=== PATIENT | male | born 1980 | race American Indian/Alaskan Native ===

== ENCOUNTER 2017-01-21 02:24 | Emergency (ER) | payer SELFPAY ==
[2017-01-21 02:24] VITALS: BMI 25.8
[2017-01-21 02:38] VITALS: RESP 18
--- NOTE | 2017-01-21 03:45 | C.PDOC ---
History Of Present Illness <Anna Isabel - Last Filed: 01/21/17 05:53> <Harpal Joshi - Last Filed: 01/31/17 09:14> 36 y/o male c/o pain to right wrist after slip and falling onto it 2 days ago. pt c/o pain to anterior mid wrist, worse with flexion and extension. pt also looking for a place to sleep tonight, was drinking earlier. pt has no other complaints. (Anna Isabel) History Per: Patient History/Exam Limitations: no limitations Current Symptoms Are (Timing): Still Present Quality: Sharp <Anna Isabel - Last Filed: 01/21/17 05:53> <Harpal Joshi - Last Filed: 01/31/17 09:14> Time Seen by Provider: 01/21/17 03:11 Chief Complaint (Nursing): Finger,Hand,&Wrist Past Medical History Reviewed: Historical Data, Nursing Documentation, Vital Signs - Medical History PMH: Asthma, Depression, Diabetes, Gastritis, HTN, Pancreatitis Denies: Chronic Kidney Disease Surgical History: No Surg Hx Family History: States: Unknown Family Hx - Social History Hx Tobacco Use: Yes Hx Alcohol Use: Yes Hx Substance Use: No (DAILY) - Immunization History Hx Tetanus Toxoid Vaccination: Yes (07/05/2014) Hx Influenza Vaccination: No Hx Pneumococcal Vaccination: Yes <Anna Isabel - Last Filed: 01/21/17 05:53> Vital Signs: Last Vital Signs Temp 98.4 F 01/21/17 05:29 Pulse 81 01/21/17 05:29 Resp 18 01/21/17 05:29 BP 101/59 L 01/21/17 05:29 Pulse Ox 97 01/21/17 05:56 - [facility] Procedures ALCOHOL DETOXIFICATION (05/29/14) INJECT/INFUSE NEC (01/29/15) OTHER GROUP THERAPY (08/12/13) TETANUS TOXOID ADMINIST (07/05/14) Review Of Systems Constitutional: Negative for: Fever, Chills Cardiovascular: Negative for: Chest Pain, Palpitations Respiratory: Negative for: Cough, Shortness of Breath Gastrointestinal: Negative for: Nausea, Vomiting, Abdominal Pain Genitourinary: Negative for: Dysuria, Frequency Musculoskeletal: Positive for: Hand Pain Skin: Negative for: Rash Neurological: Negative for: Weakness, Numbness <Anna Isabel - Last Filed: 01/21/17 05:53> Physical Exam - Physical Exam Appears: Non-toxic, No Acute Distress, Unkempt Skin: Normal Color, Warm, Dry, Other (0.5 cm abrasion to anterior wrist right) Head: Atraumatic, Normacephalic Chest: Symmetrical, No Tenderness Extremity: Right: Bony Point Tenderness (wrist ulnar and medial aspect, able to flex and extend with discomfort. from at elbow and shoulder. ) Pulses: Left Radial: Normal, Right Radial: Normal Neurological/Psych: Oriented x3, Normal Motor, Normal Sensation <Anna Isabel - Last Filed: 01/21/17 05:53> ED Course And Treatment O2 Sat by Pulse Oximetry: 97 Pulse Ox Interpretation: Normal - Other Rad wrist X-Ray: Interpreted by Me, Viewed By Me Interpretation: no fx noted <Anna Isabel - Last Filed: 01/21/17 05:53> Medical Decision Making <Anna Isabel - Last Filed: 01/21/17 05:53> <Harpal Joshi - Last Filed: 01/31/17 09:14> Medical Decision Making: xray wrist bacitracin to abrasion tdap (Anna Isabel) ED OBSERVATION Discharge: Yes Date of observation admission: 01/21/17 Time of observation admission: 04:23 <Anna Isabel - Last Filed: 01/21/17 05:53> <Harpal Joshi - Last Filed: 01/31/17 09:14> - Observation admission statement Patient is being placed in observation because:: homelessness. alcohol abuse (Anna Isabel) - Goals of Observation Goals of observation are:: sobriety, safety (Anna Isabel) - Progress Note Progress Note: 01/21/17 05:54 pt comfortable, no distress, ambulates well (Anna Isabel) Disposition <Anna Isabel - Last Filed: 01/21/17 05:53> - Disposition Disposition Time: 07:00 <Harpal Joshi - Last Filed: 01/31/17 09:14> - Disposition Referrals: Non [facility] Provider, [Primary Care Provider] - Disposition: HOME/ ROUTINE Condition: GOOD - Clinical Impression Clinical Impression: Pain of upper extremity - PA / RESEARCH SCIENTIST / Resident Statement MD/DO has reviewed & agrees with the documentation as recorded. <Harpal Joshi - Last Filed: 01/31/17 09:14>
[2017-01-21 05:31] VITALS: BP 101/59; PULSE 81; TEMP 98.4
[2017-01-21 05:56] VITALS: O2SAT 97
--- NOTE | 2017-01-21 10:25 | RAD ---
PROCEDURE: Right Wrist Radiographs. HISTORY: pain s/p fall COMPARISON: None available. FINDINGS: BONES: No acute displaced fracture. JOINTS: No dislocation. SOFT TISSUES: Unremarkable. No evidence of radiopaque foreign body OTHER FINDINGS: None. IMPRESSION: No acute displaced fracture, dislocation, or significant joint effusion identified. If symptoms persist, or if there is continued clinical concern, x-ray follow-up in 7-10 days should be considered.
== END 2017-01-21 06:00 | disposition home or self-care (01) ==
LOC: SUPCPDRO 02:24 → C.ER 02:24
DX: M25.531 Pain in right wrist (principal)

== ENCOUNTER 2017-03-22 02:07 | Observation (INO) | payer SELFPAY ==
--- NOTE | 2017-03-22 02:19 | C.PDOC ---
History Of Present Illness Patient was brought to the ED by EMS after being found intoxicated. Patient has EtOH on breath and denies any complaints at this time. Time Seen by Provider: 03/22/17 02:18 History Per: Patient History/Exam Limitations: no limitations Onset/Duration Of Symptoms: Hrs Current Symptoms Are (Timing): Still Present Suicide/Self Injury Attempted (Context): None Severity: None Recent travel outside of the [place]: No Additional History Per: EMS Past Medical History Reviewed: Historical Data, Nursing Documentation, Vital Signs Vital Signs: Last Vital Signs Temp 97.7 F 03/22/17 02:20 Pulse 71 03/22/17 02:20 Resp 18 03/22/17 02:20 BP 128/87 03/22/17 02:20 Pulse Ox 97 03/22/17 02:20 - Medical History PMH: Asthma, Depression, Diabetes, Gastritis, HTN, Pancreatitis - [facility] Procedures ALCOHOL DETOXIFICATION (05/29/14) INJECT/INFUSE NEC (01/29/15) OTHER GROUP THERAPY (08/12/13) TETANUS TOXOID ADMINIST (07/05/14) Family History: States: Unknown Family Hx - Social History Hx Tobacco Use: Yes Hx Alcohol Use: Yes Hx Substance Use: No (DAILY) - Immunization History Hx Tetanus Toxoid Vaccination: Yes (07/05/2014) Hx Influenza Vaccination: No Hx Pneumococcal Vaccination: Yes Review Of Systems Constitutional: Negative for: Fever, Chills, Sweats Cardiovascular: Negative for: Chest Pain, Palpitations Respiratory: Negative for: Cough, Shortness of Breath Gastrointestinal: Negative for: Nausea, Vomiting, Abdominal Pain, Diarrhea Physical Exam - Physical Exam Appears: Non-toxic, No Acute Distress Skin: Warm, Dry Oral Mucosa: Moist Neck: Supple Cardiovascular: Rhythm Regular Respiratory: No Rales, No Rhonchi, No Stridor, No Wheezing Gastrointestinal/Abdominal: Soft, No Tenderness, No Distention, No Guarding, No Rebound Extremity: Normal ROM, No Tenderness Neurological/Psych: Oriented x3 ED Course And Treatment O2 Sat by Pulse Oximetry: 97 Pulse Ox Interpretation: Normal Reevaluation Time: 05:22 Reassessment Condition: Improved ED OBSERVATION Discharge: Yes Date of observation admission: 03/22/17 Time of observation admission: 02:15 - Observation admission statement Patient is being placed in observation because:: Intoxication. - Goals of Observation Goals of observation are:: sobriety. Disposition Counseled Patient/Family Regarding: Studies Performed, Diagnosis, Need For Followup - Disposition Disposition: HOME/ ROUTINE Disposition Time: 02:19 Condition: FAIR - Clinical Impression Clinical Impression: Alcohol abuse, Alcohol intoxication - Scribe Statement The provider has reviewed the documentation as recorded by the Ousmaneibe Liseth Muniz All medical record entries made by the Aris were at my direction and personally dictated by me. I have reviewed the chart and agree that the record accurately reflects my personal performance of the history, physical exam, medical decision making, and the department course for this patient. I have also personally directed, reviewed, and agree with the discharge instructions and disposition.
[2017-03-22 02:20] VITALS: BMI 23.6
[2017-03-22 02:23] VITALS: BP 128/87; PULSE 71; RESP 18; TEMP 97.7; O2SAT 97
== END 2017-03-22 05:23 | disposition home or self-care (01) ==
LOC: C.ER 02:07 → C.9OBSV 02:20
PROVIDERS: ADMIT Emergency Medicine; ATTEND Emergency Medicine
DX: F10.120 Alcohol abuse with intoxication, uncomplicated (principal); Y90.9 Presence of alcohol in blood, level not specified; I10 Essential (primary) hypertension; J45.909 Unspecified asthma, uncomplicated; Z87.891 Personal history of nicotine dependence; E11.9 Type 2 diabetes mellitus without complications

== ENCOUNTER 2017-05-18 02:35 | Emergency (ER) | payer MEDICAID, OTHER ==
[2017-05-18 02:35] VITALS: BMI 23.6
[2017-05-18 02:52] VITALS: O2SAT 95
--- NOTE | 2017-05-18 05:02 | C.PDOC ---
History Of Present Illness 37 y/o male presents to emergency department with complaint of right hand pain after it was caught in a car door. Patient well known to ER staff with hx of etoh abuse. Denies any new weakness, numbness, or other injury. Time Seen by Provider: 05/18/17 02:50 Chief Complaint (Nursing): Finger,Hand,&Wrist History Per: Patient History/Exam Limitations: no limitations Onset/Duration Of Symptoms: Days Current Symptoms Are (Timing): Still Present Recent travel outside of the [place]: No Past Medical History Reviewed: Historical Data, Nursing Documentation, Vital Signs Vital Signs: Last Vital Signs Temp 97.8 F 05/18/17 05:42 Pulse 68 05/18/17 05:42 Resp 18 05/18/17 05:42 BP 119/76 05/18/17 05:42 Pulse Ox 95 05/18/17 05:42 - Medical History PMH: Asthma, Depression, Diabetes, Gastritis, HTN, Pancreatitis - [facility] Procedures ALCOHOL DETOXIFICATION (05/29/14) INJECT/INFUSE NEC (01/29/15) OTHER GROUP THERAPY (08/12/13) TETANUS TOXOID ADMINIST (07/05/14) Family History: States: Unknown Family Hx - Social History Hx Tobacco Use: Yes Hx Alcohol Use: Yes Hx Substance Use: No (DAILY) - Immunization History Hx Tetanus Toxoid Vaccination: Yes (07/05/2014) Hx Influenza Vaccination: No Hx Pneumococcal Vaccination: Yes Review Of Systems Except As Marked, All Systems Reviewed And Found Negative. Constitutional: Negative for: Fever, Chills Respiratory: Negative for: Cough Gastrointestinal: Negative for: Nausea, Vomiting Musculoskeletal: Positive for: Hand Pain Skin: Negative for: Rash Neurological: Negative for: Weakness, Numbness Physical Exam - Physical Exam Appears: Non-toxic, No Acute Distress, Other (ETOH on breath, awake/alert) Skin: Normal Color, Warm, Dry Head: Atraumatic, Normacephalic Chest: Symmetrical Cardiovascular: Rhythm Regular, No Murmur Respiratory: Normal Breath Sounds, No Rales, No Rhonchi, No Wheezing Gastrointestinal/Abdominal: Soft, No Tenderness, No Guarding, No Rebound Extremity: Normal ROM, No Tenderness, Capillary Refill (< 2 sec.), No Deformity , Swelling (right hand) Extremity: Bilateral: Normal Color And Temperature Pulses: Left Radial: Normal, Right Radial: Normal Neurological/Psych: Oriented x3, Normal Speech, Normal Cognition, Normal Motor, Normal Sensation ED Course And Treatment O2 Sat by Pulse Oximetry: 95 (RA) Pulse Ox Interpretation: Normal - Other Rad Right Hand XR X-Ray: Interpreted by Me Interpretation: neg Progress Note: Right hand x-rays ordered/reviewed; negative for acute fx. Ian wrap applied. On reassessment, patient is resting comfortably, and is in no acute distress. Patient instructed to follow up with clinic/PMD within 1-2 days. Disposition - Disposition Disposition: HOME/ ROUTINE Disposition Time: 05:00 Condition: STABLE Additional Instructions: Follow up with PMD within 1-2 days. Return to ED if feel worse. Prescriptions: Ibuprofen [Motrin Tab] 400 mg PO Q8 #30 tab Famotidine [Pepcid] 20 mg PO BID #20 tab Instructions: Contusion in Adults (ED), Hand Sprain (ED) - Clinical Impression Clinical Impression: Hand contusion, Alcohol abuse - PA / PROCUREMENT SPECIALIST / Resident Statement MD/DO has reviewed & agrees with the documentation as recorded. - Scribe Statement The provider has reviewed the documentation as recorded by the Scribe Jacoby Almaraz All medical record entries made by the Aris were at my direction and personally dictated by me. I have reviewed the chart and agree that the record accurately reflects my personal performance of the history, physical exam, medical decision making, and the department course for this patient. I have also personally directed, reviewed, and agree with the discharge instructions and disposition.
[2017-05-18 05:46] VITALS: BP 119/76; PULSE 68; RESP 18; TEMP 97.8
--- NOTE | 2017-05-18 13:03 | RAD ---
PROCEDURE: Right Hand Radiographs. HISTORY: swelling/injury COMPARISON: Comparison made with radiographs of the right wrist 01/21/2017 FINDINGS: BONES: The current study reveals no definitive radiographic evidence of acute displaced fracture nor dislocation. The osseous structures appear intact. There appears to be mild dorsal soft tissue swelling most pronounced at the distal metacarpals. JOINTS: Joint spaces preserved. . There appears to be some minor degenerative changes along the radial margin of the second MCP joint OTHER FINDINGS: No evidence of radiopaque foreign bodies. IMPRESSION: No definitive evidence of acute displaced fracture nor dislocation. Mild dorsal soft tissue swelling as above. If symptoms persist or occult fracture suspected clinically recommend repeat radiographs in 5-10 days as most fractures should become radiographically evident in this timeframe. Alternatively, MRI could be performed.
== END 2017-05-18 05:30 | disposition home or self-care (01) ==
LOC: C.ER 02:35
DX: S60.221A Contusion of right hand, initial encounter (principal); W23.1XXA Caught, crushed, jammed, or pinched between stationary objects, initial encounter; Y92.410 Unspecified street and highway as the place of occurrence of the external cause; F10.10 Alcohol abuse, uncomplicated; Y90.9 Presence of alcohol in blood, level not specified

== ENCOUNTER 2017-05-22 22:16 | Observation (INO) | payer MEDICAID ==
[2017-05-22 22:16] VITALS: BMI 23.6
[2017-05-22 23:40] LABS: BASO # 0.1 K/uL (0.0-0.2); BASO % 3.1 % (0.0-2.0); EOS % 1.2 % (0.0-4.0); HEMOGLOBIN 12.4 g/dL (12.0-18.0); LYMPH # 1.8 K/uL (1.0-4.3); LYMPH % 55.9 % (20.0-40.0); MEAN CELL VOLUME 88.1 fL (80.0-94.0); MEAN CORPUSCULAR HEMOGLOBIN 28.5 pg (27.0-31.0); MEAN CORPUSCULAR HGB CONC 32.3 g/dL (33.0-37.0); MEAN PLATELET VOLUME 6.7 fL (7.2-11.7); MONO # 0.3 K/uL (0.0-0.8); MONO % 10.2 % (0.0-10.0); NEUT % 29.6 % (50.0-75.0); NRBC % 0.1 % (0.0-2.0); PLATELET COUNT 275 K/uL (130-400); RBC 4.33 Mil/uL (4.40-5.90); RED CELL DISTRIBUTION WIDTH 15.8 % (11.5-14.5); WHITE BLOOD COUNT 3.3 K/uL (4.8-10.8)
[2017-05-22 23:48] LABS: ALBUMIN 4.1 g/dL (3.5-5.0)
[2017-05-22 23:51] LABS: ALB/GLOB RATIO 1.2 (1.0-2.1); AST/SGOT 106 U/L (17-59); BLOOD UREA NITROGEN 9 mg/dL (9-20); GFR AFRICAN-AMERICAN > 60; GFR NON-AFRICAN AMERICAN > 60
[2017-05-22 23:52] LABS: ALT/SGPT 56 U/L (21-72); CALCIUM 7.9 mg/dl (8.6-10.4)
[2017-05-23 00:29] LABS: BASOPHIL 1 % (0-2); EOSINOPHIL 3 % (0-4); LYMPHOCYTE 65 % (20-40); MONOCYTE 3 % (0-10); NEUTROPHIL 24 % (50-75); PLATELET ESTIMATE NORMAL (NORMAL); REACTIVE LYMPHOCYTES 4 % (0-0); TOTAL CELLS COUNTED 100
--- NOTE | 2017-05-23 01:39 | C.PDOC ---
History Of Present Illness 37 year old male who presents to the ER via EMS for public intoxication. Denies any physical complaints at this time. Chief Complaint (Nursing): Substance Abuse History Per: Patient History/Exam Limitations: no limitations Onset/Duration Of Symptoms: Hrs Current Symptoms Are (Timing): Still Present Suicide/Self Injury Attempted (Context): None Modifying Factor(s): Alcohol Associated Symptoms: denies: Depression, Suicidal Thoughts, Suicidal Plan Involuntary Hold By: None Recent travel outside of the [place]: No Past Medical History Reviewed: Historical Data, Nursing Documentation, Vital Signs Vital Signs: Last Vital Signs Temp 97 F L 05/23/17 05:51 Pulse 71 05/23/17 05:51 Resp 14 05/23/17 05:51 BP 116/71 05/23/17 05:51 Pulse Ox 98 05/23/17 06:49 - Medical History PMH: Asthma, Depression, Diabetes, Gastritis, HTN, Pancreatitis Surgical History: No Surg Hx - [facility] Procedures ALCOHOL DETOXIFICATION (05/29/14) INJECT/INFUSE NEC (01/29/15) OTHER GROUP THERAPY (08/12/13) TETANUS TOXOID ADMINIST (07/05/14) Family History: States: Unknown Family Hx - Social History Hx Tobacco Use: Yes Hx Alcohol Use: Yes Hx Substance Use: No (DAILY) - Immunization History Hx Tetanus Toxoid Vaccination: Yes (07/05/2014) Hx Influenza Vaccination: No Hx Pneumococcal Vaccination: Yes Review Of Systems Constitutional: Negative for: Fever, Chills Gastrointestinal: Negative for: Nausea, Vomiting, Diarrhea Physical Exam - Physical Exam Appears: Non-toxic, No Acute Distress, Other (ETOH on breath) Skin: Normal Color, Warm, Dry Head: Atraumatic, Normacephalic Oral Mucosa: Moist Chest: Symmetrical, No Tenderness Cardiovascular: Rhythm Regular, No Murmur Respiratory: Normal Breath Sounds, No Rales, No Rhonchi, No Wheezing Gastrointestinal/Abdominal: Soft, No Tenderness Neurological/Psych: Oriented x3, Normal Speech, Normal Cognition ED Course And Treatment - Laboratory Results Result Diagrams: 05/22/17 23:38 05/22/17 23:38 O2 Sat by Pulse Oximetry: 98 (Room air) Pulse Ox Interpretation: Normal Progress Note: Urinalysis ordered. On reevaluation, patient is still unsteady, not ready for discharge. Disposition Counseled Patient/Family Regarding: Diagnosis - Disposition Disposition Time: 07:00 Condition: STABLE - POA Present On Arrival: None - Clinical Impression Clinical Impression: Alcohol intoxication - Scribe Statement The provider has reviewed the documentation as recorded by the Scribchidi Modi All medical record entries made by the Ousmaneibe were at my direction and personally dictated by me. I have reviewed the chart and agree that the record accurately reflects my personal performance of the history, physical exam, medical decision making, and the department course for this patient. I have also personally directed, reviewed, and agree with the discharge instructions and disposition.
[2017-05-23 05:52] VITALS: TEMP 97
[2017-05-23 07:19] VITALS: RESP 16; O2SAT 96
[2017-05-23 11:00] VITALS: BP 117/79; PULSE 76
== END 2017-05-23 11:33 | disposition home or self-care (01) ==
LOC: C.ER 22:16 → C.9OBSV 05-23 06:15
PROVIDERS: ADMIT Emergency Medicine; ATTEND Emergency Medicine
DX: F10.120 Alcohol abuse with intoxication, uncomplicated (principal); I10 Essential (primary) hypertension; J45.909 Unspecified asthma, uncomplicated; Z87.891 Personal history of nicotine dependence; E11.9 Type 2 diabetes mellitus without complications; Y90.8 Blood alcohol level of 240 mg/100 ml or more; Z79.4 Long term (current) use of insulin
CPT/HCPCS: 80053; 80320; 85025; 99285; G0378

== ENCOUNTER 2017-05-27 17:07 | Emergency (ER) | payer MEDICAID ==
[2017-05-27 17:14] VITALS: BMI 21.7
[2017-05-27 17:18] VITALS: BP 157/95; PULSE 92; RESP 18; TEMP 98.9; O2SAT 100
--- NOTE | 2017-05-27 17:30 | C.PDOC ---
History Of Present Illness 37-year-old male, brought in by EMS for fall on street. Patient has a Hx of multiple visits for alcohol abuse and seizures. States he did not have a seizure today, he tripped on a rock and fell. Denies LOC or head trauma. Patient states he needs to leave, and has money in his pockets that he "needs to deliver." No headache, neck pain, chest pain or shortness of breath. Time Seen by Provider: 05/27/17 17:19 Chief Complaint (Nursing): Seizure Past Medical History Vital Signs: Last Vital Signs Temp 98.9 F 05/27/17 17:10 Pulse 92 H 05/27/17 17:10 Resp 18 05/27/17 17:10 BP 157/95 H 05/27/17 17:10 Pulse Ox 100 05/27/17 17:34 - Medical History PMH: Asthma, Depression, Diabetes, Gastritis, HTN, Pancreatitis Denies: Chronic Kidney Disease - [facility] Procedures ALCOHOL DETOXIFICATION (05/29/14) INJECT/INFUSE NEC (01/29/15) OTHER GROUP THERAPY (08/12/13) TETANUS TOXOID ADMINIST (07/05/14) Family History: States: Unknown Family Hx - Social History Hx Tobacco Use: Yes Hx Alcohol Use: Yes Hx Substance Use: No - Immunization History Hx Tetanus Toxoid Vaccination: Yes (07/05/2014) Hx Influenza Vaccination: No Hx Pneumococcal Vaccination: No Review Of Systems Cardiovascular: Negative for: Chest Pain Respiratory: Negative for: Shortness of Breath Gastrointestinal: Negative for: Vomiting Neurological: Negative for: Weakness, Numbness, Headache, Dizziness Physical Exam - Physical Exam Appears: Non-toxic, No Acute Distress, Other (calm and cooperative. Tremulous) Skin: Warm, Dry Head: Atraumatic Eye(s): bilateral: Normal Inspection Nose: Normal Lips: Normal Appearing Neck: Normal ROM Cardiovascular: Rhythm Regular, No Murmur Respiratory: Normal Breath Sounds, No Accessory Muscle Use Gastrointestinal/Abdominal: Soft, No Tenderness Extremity: Other (subungal hematoma to right fifth digit w/ bleeding (does not want to be treated)) Neurological/Psych: Oriented x3 ED Course And Treatment O2 Sat by Pulse Oximetry: 100 Disposition Counseled Patient/Family Regarding: Diagnosis, Need For Followup - Disposition Disposition: HOME/ ROUTINE Disposition Time: 17:30 Condition: STABLE Instructions: Abuse of Alcohol (ED) Forms: General Discharge Instructions - POA Present On Arrival: None - Clinical Impression Clinical Impression: Seizure, Alcohol abuse - Scribe Statement The provider has reviewed the documentation as recorded by the Scribe (Jose F Yen) All medical record entries made by the Scribe were at my direction and personally dictated by me. I have reviewed the chart and agree that the record accurately reflects my personal performance of the history, physical exam, medical decision making, and the department course for this patient. I have also personally directed, reviewed, and agree with the discharge instructions and disposition.
== END 2017-05-27 17:46 | disposition home or self-care (01) ==
LOC: C.ER 17:07
DX: G40.909 Epilepsy, unspecified, not intractable, without status epilepticus (principal); F10.10 Alcohol abuse, uncomplicated; Y90.9 Presence of alcohol in blood, level not specified

== ENCOUNTER 2017-06-10 22:46 | Emergency (ER) | payer MEDICAID, OTHER ==
[2017-06-10 22:46] VITALS: BMI 21.7
[2017-06-10 23:14] VITALS: RESP 20
--- NOTE | 2017-06-11 00:54 | C.PDOC ---
History Of Present Illness 37 year old male who presents to the ER with acute ETOH intoxication. Denies physical complaints at this time. Chief Complaint (Nursing): Substance Abuse History Per: Patient History/Exam Limitations: no limitations Onset/Duration Of Symptoms: Hrs Current Symptoms Are (Timing): Still Present Suicide/Self Injury Attempted (Context): None Modifying Factor(s): Alcohol Associated Symptoms: denies: Depression, Suicidal Thoughts, Suicidal Plan Involuntary Hold By: None Recent travel outside of the [place]: No Past Medical History Reviewed: Historical Data, Nursing Documentation, Vital Signs Vital Signs: Last Vital Signs Temp 98 F 06/11/17 05:22 Pulse 64 06/11/17 05:22 Resp 20 06/11/17 05:22 BP 115/70 06/11/17 05:22 Pulse Ox 97 06/11/17 05:22 - Medical History PMH: Asthma, Depression, Diabetes, Gastritis, HTN, Pancreatitis Surgical History: No Surg Hx - [facility] Procedures ALCOHOL DETOXIFICATION (05/29/14) INJECT/INFUSE NEC (01/29/15) OTHER GROUP THERAPY (08/12/13) TETANUS TOXOID ADMINIST (07/05/14) Family History: States: Unknown Family Hx - Social History Hx Tobacco Use: Yes Hx Alcohol Use: Yes Hx Substance Use: No - Immunization History Hx Tetanus Toxoid Vaccination: Yes (07/05/2014) Hx Influenza Vaccination: No Hx Pneumococcal Vaccination: No Review Of Systems Constitutional: Negative for: Fever, Chills Gastrointestinal: Negative for: Nausea, Vomiting, Diarrhea Physical Exam - Physical Exam Appears: Non-toxic, No Acute Distress, Other (ETOH on breath) Skin: Normal Color, Warm, Dry Head: Atraumatic, Normacephalic Oral Mucosa: Moist Chest: Symmetrical, No Tenderness Cardiovascular: Rhythm Regular, No Murmur Respiratory: Normal Breath Sounds, No Rales, No Rhonchi, No Wheezing Gastrointestinal/Abdominal: Soft, No Tenderness Neurological/Psych: Oriented x3, Normal Speech, Normal Cognition ED Course And Treatment O2 Sat by Pulse Oximetry: 95 (Room air) Pulse Ox Interpretation: Normal ED OBSERVATION Date of observation admission: 06/10/17 Time of observation admission: 23:50 - Observation admission statement Patient is being placed in observation because:: Acute ETOH intoxication - Goals of Observation Goals of observation are:: Sobriety Disposition Counseled Patient/Family Regarding: Diagnosis - Disposition Referrals: [facility] [Outside] Disposition: HOME/ ROUTINE Disposition Time: 05:10 Condition: STABLE Instructions: Abuse of Alcohol (ED) Forms: [facility] (Guatemalan) - POA Present On Arrival: None - Clinical Impression Clinical Impression: Alcohol intoxication - Scribe Statement The provider has reviewed the documentation as recorded by the Scribe Farhan Modi All medical record entries made by the Scribe were at my direction and personally dictated by me. I have reviewed the chart and agree that the record accurately reflects my personal performance of the history, physical exam, medical decision making, and the department course for this patient. I have also personally directed, reviewed, and agree with the discharge instructions and disposition.
[2017-06-11 05:23] VITALS: BP 115/70; PULSE 64; TEMP 98
[2017-06-11 06:55] VITALS: O2SAT 95
== END 2017-06-11 05:23 | disposition home or self-care (01) ==
LOC: C.ER 22:46
DX: F10.120 Alcohol abuse with intoxication, uncomplicated (principal); Y90.9 Presence of alcohol in blood, level not specified

== ENCOUNTER 2017-06-13 03:36 | Emergency (ER) | payer OTHER ==
[2017-06-13 03:36] VITALS: BMI 21.7
--- NOTE | 2017-06-13 04:24 | C.PDOC ---
History Of Present Illness The patient presents to the ED for evaluation of abdominal pain which began earlier today. Patient admits to drinking earlier today and requests a place to sleep for the night. Patient is familiar to ED and has had many prior visits concerning alcohol intoxication. Otherwise, he denies suicidal/homicidal ideation, nausea, vomiting. Time Seen by Provider: 06/13/17 03:59 Chief Complaint (Nursing): Medical Clearance History Per: Patient History/Exam Limitations: intoxication Onset/Duration Of Symptoms: Hrs Current Symptoms Are (Timing): Still Present Additional History Per: Patient Past Medical History Reviewed: Historical Data, Nursing Documentation, Vital Signs Vital Signs: Last Vital Signs Temp 98 F 06/13/17 03:59 Pulse 84 06/13/17 03:59 Resp 20 06/13/17 03:59 BP 128/67 06/13/17 03:59 Pulse Ox 98 06/13/17 04:29 - Medical History PMH: Asthma, Depression, Diabetes, Gastritis, HTN, Pancreatitis Surgical History: No Surg Hx - [facility] Procedures ALCOHOL DETOXIFICATION (05/29/14) INJECT/INFUSE NEC (01/29/15) OTHER GROUP THERAPY (08/12/13) TETANUS TOXOID ADMINIST (07/05/14) Family History: States: Unknown Family Hx - Social History Hx Tobacco Use: Yes Hx Alcohol Use: Yes Hx Substance Use: No - Immunization History Hx Tetanus Toxoid Vaccination: Yes (07/05/2014) Hx Influenza Vaccination: No Hx Pneumococcal Vaccination: No Review Of Systems Constitutional: Positive for: Other (+ETOH intoxication ) Eyes: Negative for: Vision Change Cardiovascular: Negative for: Chest Pain, Palpitations Respiratory: Negative for: Cough, Shortness of Breath Gastrointestinal: Positive for: Abdominal Pain. Negative for: Nausea, Vomiting Musculoskeletal: Negative for: Back Pain Skin: Negative for: Rash, Lesions, Jaundice, Bruising Neurological: Negative for: Weakness, Numbness Psych: Negative for: Suicidal ideation Physical Exam - Physical Exam Appears: No Acute Distress, Other (visibly intoxicated ) Skin: Warm, Dry Head: Normacephalic Eye(s): bilateral: Normal Inspection Oral Mucosa: Moist, Other (alcohol on breath ) Neck: Supple Chest: Symmetrical, No Deformity, No Tenderness Cardiovascular: Rhythm Regular, No Murmur Respiratory: No Rales, No Rhonchi, No Wheezing Gastrointestinal/Abdominal: Tenderness (mild to mid-epigastric region on palpation ), No Guarding, No Rebound Extremity: Normal ROM, Capillary Refill (less than 2 seconds ) Neurological/Psych: Other (arousable to touch and verbal stimuli ) Gait: Unsteady ED Course And Treatment O2 Sat by Pulse Oximetry: 98 (on RA) Pulse Ox Interpretation: Normal Reevaluation Time: 05:47 Reassessment Condition: Improved Disposition Counseled Patient/Family Regarding: Studies Performed, Diagnosis, Need For Followup - Disposition Referrals: [facility] [Outside] Disposition: HOME/ ROUTINE Disposition Time: 05:47 Condition: FAIR Instructions: Alcohol Intoxication (DC) Forms: [employer] (Uzbek) - Clinical Impression Clinical Impression: Alcohol abuse, Alcohol intoxication - Scribe Statement The provider has reviewed the documentation as recorded by the Scribe (Rina Soler)
[2017-06-13 06:28] VITALS: BP 110/70; PULSE 70; RESP 14; TEMP 97.5; O2SAT 97
== END 2017-06-13 06:27 | disposition home or self-care (01) ==
LOC: C.ER 03:36
DX: F10.129 Alcohol abuse with intoxication, unspecified (principal); Y90.9 Presence of alcohol in blood, level not specified

== ENCOUNTER 2017-06-27 23:18 | Emergency (ER) | payer OTHER ==
[2017-06-27 23:18] VITALS: BMI 21.7
[2017-06-27 23:42] VITALS: RESP 20
--- NOTE | 2017-06-28 00:15 | C.PDOC ---
History Of Present Illness 37 year old male presents to the ED with complaints of "not feeling well." Patient admits to drinking alcohol today and states he feel either today or yesterday. He denies fever, diarrhea, vomiting, or any physical complaints at this time. Time Seen by Provider: 06/27/17 23:56 Chief Complaint (Nursing): Headache History Per: Patient History/Exam Limitations: no limitations Onset/Duration Of Symptoms: Unknown Current Symptoms Are (Timing): Still Present Preceeding Symptoms: None Recent travel outside of the [place]: No Additional History Per: Prior Records Past Medical History Reviewed: Historical Data, Nursing Documentation, Vital Signs Vital Signs: Last Vital Signs Temp 97.6 F 06/28/17 01:59 Pulse 83 06/28/17 01:59 Resp 20 06/28/17 01:59 BP 127/69 06/28/17 01:59 Pulse Ox 99 06/28/17 01:59 - Medical History PMH: Asthma, Depression, Diabetes, Gastritis, HTN, Pancreatitis Denies: Chronic Kidney Disease - [facility] Procedures ALCOHOL DETOXIFICATION (05/29/14) INJECT/INFUSE NEC (01/29/15) OTHER GROUP THERAPY (08/12/13) TETANUS TOXOID ADMINIST (07/05/14) Family History: States: Unknown Family Hx - Social History Hx Tobacco Use: Yes Hx Alcohol Use: Yes Hx Substance Use: No - Immunization History Hx Tetanus Toxoid Vaccination: Yes (07/05/2014) Hx Influenza Vaccination: No Hx Pneumococcal Vaccination: No Review Of Systems Constitutional: Positive for: Other (generalized complaints of not feeling well ). Negative for: Fever, Chills Cardiovascular: Negative for: Chest Pain, Palpitations Respiratory: Negative for: Cough, Shortness of Breath Gastrointestinal: Negative for: Nausea, Vomiting, Abdominal Pain, Diarrhea Physical Exam - Physical Exam Appears: Non-toxic, No Acute Distress, Other (Reading newspaper on exam ) Skin: Warm, Dry Head: Tenderness (tenderness to right occipital region of skull ) Eye(s): bilateral: Normal Inspection, PERRL, EOMI Oral Mucosa: Moist Neck: Supple Chest: Symmetrical, No Deformity Cardiovascular: Rhythm Regular Respiratory: Normal Breath Sounds, No Rhonchi, No Wheezing Gastrointestinal/Abdominal: Soft, No Tenderness, No Distention, No Guarding, No Rebound Extremity: Normal ROM, No Tenderness Neurological/Psych: Oriented x3, Normal Speech, Normal Cognition ED Course And Treatment O2 Sat by Pulse Oximetry: 98 (room air ) - CT Scan/US CT Head Without Intravenous Contrast Other Rad Studies (CT/US): Read By Radiologist, Radiology Report Reviewed CT/US Interpretation: FINDINGS: Brain: No acute intracranial hemorrhage. No significant white matter disease. No edema. Ventricles: No significant ventriculomegaly. Bones: No acute displaced fracture. Sinuses: Unremarkable as visualized. No acute sinusitis. Mastoid air cells: Unremarkable as visualized. No mastoid effusion. IMPRESSION: No acute intracranial hemorrhage , or suspicious mass effect. Progress Note: Head CT was ordered. Disposition - Disposition Referrals: [facility] [Outside] [facility] [Outside] Disposition: HOME/ ROUTINE Disposition Time: 01:05 Condition: GOOD Additional Instructions: Thank you for letting us take care of you today. Your provider was Dr. Dias. You were treated for alcohol abuse. The emergency medical care you received today was directed at your acute symptoms. If you were prescribed any medication, please fill it and take as directed. It may take several days for your symptoms to resolve. Return to the Emergency Department if your symptoms worsen, do not improve, or if you have any other problems. Please contact your doctor or call one of the physicians/clinics you have been referred to that are listed on the Patient Visit Information form that is included in your discharge packet. Bring any paperwork you were given at discharge with you along with any medications you are taking to your follow up visit. Our treatment cannot replace ongoing medical care by a primary care provider (PCP) outside of the emergency department. Thank you for allowing the [facility] team to be part of your care today. Follow up with the clinic for outpatient care. Instructions: Abuse of Alcohol (ED) Forms: [employer] (Czech) - Clinical Impression Clinical Impression: Headache, Alcohol abuse - Scribe Statement The provider has reviewed the documentation as recorded by the Scribe Liseth Muniz All medical record entries made by the Ousmaneibe were at my direction and personally dictated by me. I have reviewed the chart and agree that the record accurately reflects my personal performance of the history, physical exam, medical decision making, and the department course for this patient. I have also personally directed, reviewed, and agree with the discharge instructions and disposition.
--- NOTE | 2017-06-28 01:05 | CT ---
EXAM: CT Head Without Intravenous Contrast CLINICAL HISTORY: 37 years old, male; Injury or trauma; Fall; Initial encounter; Blunt trauma (contusions or hematomas); Additional info: R/O ich and FX TECHNIQUE: Axial computed tomography images of the head/brain without intravenous contrast. All CT scans at this facility use one or more dose reduction techniques, viz.: automated exposure control; ma/kV adjustment per patient size (including targeted exams where dose is matched to indication; i.e. head); or iterative reconstruction technique. Coronal and sagittal reformatted images were created and reviewed. COMPARISON: No relevant prior studies available. FINDINGS: Brain: No acute intracranial hemorrhage. No significant white matter disease. No edema. Ventricles: No significant ventriculomegaly. Bones: No acute displaced fracture. Sinuses: Unremarkable as visualized. No acute sinusitis. Mastoid air cells: Unremarkable as visualized. No mastoid effusion. IMPRESSION: No acute intracranial hemorrhage, or suspicious mass effect.
[2017-06-28 02:01] VITALS: BP 127/69; PULSE 83; TEMP 97.6
[2017-06-28 06:39] VITALS: O2SAT 98
== END 2017-06-28 02:13 | disposition home or self-care (01) ==
LOC: C.ER 23:18
DX: F10.10 Alcohol abuse, uncomplicated (principal); Y90.9 Presence of alcohol in blood, level not specified; R51 Headache

== ENCOUNTER 2017-08-03 22:39 | Emergency (ER) | payer OTHER ==
[2017-08-03 22:39] VITALS: BMI 21.7
[2017-08-03 22:54] VITALS: RESP 20
--- NOTE | 2017-08-03 22:57 | C.PDOC ---
History Of Present Illness Patient presents to the ER with a complaint of a laceration to the right frontal area after he fell [employer]. Patient admits to ETOH use today and remember the falls; denies LOC or change in vision. Time Seen by Provider: 08/03/17 22:56 Chief Complaint (Nursing): Substance Abuse History Per: Patient History/Exam Limitations: no limitations Onset/Duration Of Symptoms: Hrs Current Symptoms Are (Timing): Still Present Suicide/Self Injury Attempted (Context): None Modifying Factor(s): Alcohol Severity: Mild Pain Scale Rating Of: 2 Associated Symptoms: denies: Depression, Suicidal Thoughts, Suicidal Plan Involuntary Hold By: None Recent travel outside of the [place]: No Past Medical History Reviewed: Historical Data, Nursing Documentation, Vital Signs Vital Signs: Last Vital Signs Temp 97.8 F 08/04/17 03:07 Pulse 76 08/04/17 03:07 Resp 20 08/04/17 03:07 BP 124/78 08/04/17 03:07 Pulse Ox 99 08/04/17 03:23 - Medical History PMH: Asthma, Depression, Diabetes, Gastritis, HTN, Pancreatitis Surgical History: No Surg Hx - [facility] Procedures ALCOHOL DETOXIFICATION (05/29/14) INJECT/INFUSE NEC (01/29/15) OTHER GROUP THERAPY (08/12/13) TETANUS TOXOID ADMINIST (07/05/14) Family History: States: No Known Family Hx - Social History Hx Tobacco Use: Yes Hx Alcohol Use: Yes Hx Substance Use: No - Immunization History Hx Tetanus Toxoid Vaccination: Yes (07/05/2014) Hx Influenza Vaccination: No Hx Pneumococcal Vaccination: No Review Of Systems Eyes: Negative for: Vision Change Gastrointestinal: Negative for: Nausea, Vomiting Skin: Positive for: Other (Laceration) Neurological: Negative for: Other (LOC) Physical Exam - Physical Exam Appears: Non-toxic Skin: Warm, Dry Head: Normacephalic, Laceration (2cm to right frontal area) Eye(s): bilateral: Normal Inspection, PERRL, EOMI Oral Mucosa: Moist Neck: Trachea Midline, No Midline Cervical Tenderness, No Paracervical Tenderness, Supple Chest: Symmetrical Cardiovascular: Rhythm Regular Respiratory: No Rales, No Rhonchi, No Wheezing Gastrointestinal/Abdominal: Soft, No Tenderness Neurological/Psych: Oriented x3 ED Course And Treatment O2 Sat by Pulse Oximetry: 99 (Room air) Pulse Ox Interpretation: Normal Progress Note: CT head and CT orbits/facials ordered. Reevaluation Time: 05:26 Reassessment Condition: Improved ED OBSERVATION Discharge: Yes Date of observation admission: 08/04/17 Time of observation admission: 00:00 - Observation admission statement Patient is being placed in observation because:: alcohol intox - Goals of Observation Goals of observation are:: sobriety - Progress Note Progress Note: 08/04/17 00:02 vitals stable 08/04/17 03:22 no complaints 08/04/17 05:26 vitals stable Disposition Counseled Patient/Family Regarding: Studies Performed, Diagnosis, Need For Followup - Disposition Referrals: [facility] [Outside] Disposition: HOME/ ROUTINE Disposition Time: 22:56 Condition: FAIR Instructions: Alcohol Intoxication (DC), Abrasion (ED) Forms: [employer] (Gabonese) - Clinical Impression Clinical Impression: Alcohol intoxication, Alcohol dependence, Fall, Abrasion of forehead - Scribe Statement The provider has reviewed the documentation as recorded by the Scribchidi Modi All medical record entries made by the Ousmaneibchidi were at my direction and personally dictated by me. I have reviewed the chart and agree that the record accurately reflects my personal performance of the history, physical exam, medical decision making, and the department course for this patient. I have also personally directed, reviewed, and agree with the discharge instructions and disposition.
--- NOTE | 2017-08-04 01:18 | CT ---
EXAM: CT Head Without Intravenous Contrast EXAM DATE/TIME: 08/03/2017 11:16 PM CLINICAL HISTORY: 37 years old, male; Pain and injury or trauma; Fall; Initial encounter; Wound, open; Forehead; Without residual foreign body; Headache; Patient HX: 8-17 TECHNIQUE: Axial computed tomography images of the head/brain without intravenous contrast. All CT scans at this facility use one or more dose reduction techniques, viz.: automated exposure control; ma/kV adjustment per patient size (including targeted exams where dose is matched to indication; i.e. head); or iterative reconstruction technique. Coronal and sagittal reformatted images were created and reviewed. COMPARISON: CT - HEAD W/O CONTRAST 06/28/2017 12:49:09 AM FINDINGS: Brain: There is dilatation of sulci gyri and ventricles. There is no midline shift. There is decreased attenuation in periventricular white matter. There are no focal masses. There are no focal hemorrhages. Stewart-white differentiation is visualized. Ventricles: See above. Bones/joints: Bones: Cranial vault is intact. There are old nasal bone fractures Soft tissues: There is right frontal scalp hematoma. There are small radiopaque foreign bodies in the subcutaneous fat and skin, unchanged. Sinuses: There is no acute sinusitis. Mastoid air cells: Ears and mastoids: Middle ears and mastoids are unremarkable. Orbits: No orbital abnormalities. Position of the lenses suggest discordant gaze IMPRESSION: Mild atrophy greater than expected for patient of this age; right frontal scalp hematoma, no acute intracranial abnormality
--- NOTE | 2017-08-04 01:31 | CT ---
EXAM: CT Maxillofacial Without Intravenous Contrast EXAM DATE/TIME: 08/03/2017 11:16 PM CLINICAL HISTORY: 37 years old, male; Pain; Eye pain and face pain; Bilateral; Patient HX: 11-12-13; Additional info: Fall TECHNIQUE: Axial computed tomography images of the face without intravenous contrast. All CT scans at this facility use one or more dose reduction techniques, viz.: automated exposure control; ma/kV adjustment per patient size (including targeted exams where dose is matched to indication; i.e. head); or iterative reconstruction technique. Coronal and sagittal reformatted images were created and reviewed. COMPARISON: CT - ORBITS W/O CONTRAST 11/12/2013 6:06:58 AM FINDINGS: Bones/joints: There is deformity of the left zygomatic arch consistent with old healed fracture. There are no acute zygomatic arch fractures. There are old nasal bone fractures. There is deformity of the bony nasal septum, unchanged. There is an old healed left orbital floor fracture. Right bony orbit is unremarkable. There are no skull fractures. Soft tissues: There is right frontal scalp hematoma. There are no facial masses. Orbits: Globes are intact.Retrobulbar structures are symmetric. Submandibular/parotid glands: Parotid and submandibular glands are unremarkable. Sinuses: There is mucoperiosteal thickening in the sinuses, greatest in the left maxillary antrum. Middle ears and mastoids: Middle ears and mastoids are unremarkable. Dental: Streak artifact from dental fillings degrades image quality. There lucent lesion in the maxilla on the left. There are no upper teeth. Brain: No focal abnormalities are seen in visualized portion of the brain. IMPRESSION: Right frontal scalp hematoma, no underlying skull fracture; old healed left zygomatic arch fracture and old healed left orbital floor fracture, no acute facial bone fractures Additional findings as described above.
[2017-08-04] MEDS ORDERED: Lidocaine 1% w Epi 1:100,000 Inj ONE (06:18)
[2017-08-04] MEDS ORDERED: Bacitracin 500 Units/gm Oint Foilpak UD ONE (06:22)
[2017-08-04 06:45] VITALS: BP 117/70; PULSE 83; TEMP 98.1; O2SAT 98
[2017-08-04] MEDS ORDERED: Bacitracin Ointment 30 GM TUBE TOP STA (06:54)
== END 2017-08-04 07:00 | disposition home or self-care (01) ==
LOC: C.ER 22:39
DX: S01.81XA Laceration without foreign body of other part of head, initial encounter (principal); W18.30XA Fall on same level, unspecified, initial encounter; F10.229 Alcohol dependence with intoxication, unspecified; Y90.9 Presence of alcohol in blood, level not specified

== ENCOUNTER 2017-08-06 23:16 | Emergency (ER) | payer OTHER ==
[2017-08-06 23:16] VITALS: BMI 21.7
--- NOTE | 2017-08-07 01:35 | C.PDOC ---
History Of Present Illness 37 year old male who presents to the ER for a wound check after having sutures placed on his forehead on 08/03. Denies physical complaints at this time. Time Seen by Provider: 08/06/17 23:39 Chief Complaint (Nursing): Suture/Staple Removal History Per: Patient History/Exam Limitations: no limitations Onset/Duration Of Symptoms: Days Ago (2) Current Symptoms Are (Timing): Still Present Location Of Injury: Right: Head (Forehead) Quality Of Symptoms: Other (Wound) Recent travel outside of the [place]: No Past Medical History Reviewed: Historical Data, Nursing Documentation, Vital Signs Vital Signs: Last Vital Signs Temp 97.1 F L 08/07/17 05:21 Pulse 84 08/07/17 05:21 Resp 20 08/07/17 05:21 BP 133/67 08/07/17 05:21 Pulse Ox 98 08/07/17 05:21 - Medical History PMH: Asthma, Depression, Diabetes, Gastritis, HTN, Pancreatitis Surgical History: No Surg Hx - [facility] Procedures ALCOHOL DETOXIFICATION (05/29/14) INJECT/INFUSE NEC (01/29/15) OTHER GROUP THERAPY (08/12/13) TETANUS TOXOID ADMINIST (07/05/14) Family History: States: Unknown Family Hx - Social History Hx Tobacco Use: Yes Hx Alcohol Use: Yes Hx Substance Use: No - Immunization History Hx Tetanus Toxoid Vaccination: Yes (07/05/2014) Hx Influenza Vaccination: No Hx Pneumococcal Vaccination: No Review Of Systems Constitutional: Negative for: Fever, Chills Gastrointestinal: Negative for: Nausea, Vomiting, Diarrhea Skin: Positive for: Other (Healing wound) Physical Exam - Physical Exam Appears: Non-toxic, No Acute Distress, Other ((+) AOB, Sleepy but responsive, answers questions) Skin: Warm, Dry Head: Normacephalic, Other (Healing abrasions to right forehead, sutured laceration to RT forehead with [address], no bleeding or swelling.) Eye(s): bilateral: Normal Inspection Oral Mucosa: Moist Neck: Normal, Supple Chest: Symmetrical, No Tenderness Cardiovascular: Rhythm Regular Respiratory: Normal Breath Sounds, No Wheezing Extremity: Bilateral: Atraumatic Neurological/Psych: Oriented x3, Normal Speech, Normal Cognition Gait: Steady ED Course And Treatment O2 Sat by Pulse Oximetry: 99 (Room air) Pulse Ox Interpretation: Normal Progress Note: Pt appears inebriated, wants to sleep. Naun observe for sobriety test in AM. 5AM: Pt is awake, alert and oriented x 3 and ambulatory with steady gait. Pt will follow up in 5 d for suture removal Disposition - Disposition Referrals: [facility] [Outside] Disposition: HOME/ ROUTINE Disposition Time: 05:22 Condition: STABLE Additional Instructions: RETURN 0N / FOR SUTURE REMOVAL FOLLOW UP IN CLINIC RETURN TO ER AT ANY TIME FOR ANY CONCERNS Instructions: Care For Your Stitches (ED) Forms: [employer] (Thai), General Discharge Instructions - Clinical Impression Clinical Impression: Visit for wound check, Alcohol abuse - Scribe Statement The provider has reviewed the documentation as recorded by the Scribchidi Modi All medical record entries made by the Scribe were at my direction and personally dictated by me. I have reviewed the chart and agree that the record accurately reflects my personal performance of the history, physical exam, medical decision making, and the department course for this patient. I have also personally directed, reviewed, and agree with the discharge instructions and disposition.
[2017-08-07 03:26] VITALS: RESP 20
[2017-08-07 05:22] VITALS: BP 133/67; PULSE 84; TEMP 97.1
[2017-08-09 01:11] VITALS: O2SAT 99
== END 2017-08-07 05:33 | disposition home or self-care (01) ==
LOC: C.ER 23:16
DX: Z51.89 Encounter for other specified aftercare (principal); F10.10 Alcohol abuse, uncomplicated

== ENCOUNTER 2017-08-12 15:44 | Emergency (ER) | payer OTHER ==
[2017-08-12 15:44] VITALS: BMI 21.7
[2017-08-12 15:58] VITALS: BP 122/86; PULSE 67; RESP 16; TEMP 98.8; O2SAT 100
--- NOTE | 2017-08-12 16:18 | C.PDOC ---
History Of Present Illness 37 y/o M presents for suture removal. Patient had 3 sutures placed to R sided forehead 10 days ago. Denies fever, redness, discharge, swelling. Time Seen by Provider: 08/12/17 16:05 Chief Complaint (Nursing): Suture/Staple Removal Past Medical History Vital Signs: Last Vital Signs Temp 98.8 F 08/12/17 15:56 Pulse 67 08/12/17 15:56 Resp 16 08/12/17 15:56 BP 122/86 08/12/17 15:56 Pulse Ox 100 08/12/17 15:56 - Medical History PMH: Asthma, Depression, Diabetes, Gastritis, HTN, Pancreatitis Denies: Chronic Kidney Disease - [facility] Procedures ALCOHOL DETOXIFICATION (05/29/14) INJECT/INFUSE NEC (01/29/15) OTHER GROUP THERAPY (08/12/13) TETANUS TOXOID ADMINIST (07/05/14) Family History: States: Unknown Family Hx - Social History Hx Tobacco Use: Yes Hx Alcohol Use: Yes Hx Substance Use: No - Immunization History Hx Tetanus Toxoid Vaccination: Yes (07/05/2014) Hx Influenza Vaccination: No Hx Pneumococcal Vaccination: No Review Of Systems Except As Marked, All Systems Reviewed And Found Negative. Constitutional: Negative for: Fever Gastrointestinal: Negative for: Vomiting Physical Exam - Physical Exam Appears: Well, Non-toxic Skin: Other (Well healed laceration to R sided forehead with 3 sutures. Multiple R facial abrasions with overlying scabs without erythema or discharge.) Head: Normacephalic Eye(s): bilateral: EOMI Oral Mucosa: Moist Neurological/Psych: Normal Speech, Normal Cognition ED Course And Treatment O2 Sat by Pulse Oximetry: 100 Medical Decision Making Medical Decision Making: Sutures removed without complication. Disposition - Disposition Disposition: HOME/ ROUTINE Disposition Time: 16:18 Condition: STABLE Prescriptions: Bacitracin Ointment [Bacitracin] 1 appl TOP BID #1 tube Instructions: Stitches Removal (ED) - Clinical Impression Clinical Impression: Removal of suture
[2017-08-12] MEDS ORDERED: Bacitracin 500 Units/gm Oint Foilpak UD ONE (16:29)
== END 2017-08-12 16:36 | disposition home or self-care (01) ==
LOC: C.ER 15:44
DX: Z48.02 Encounter for removal of sutures (principal)

== ENCOUNTER 2017-08-15 04:18 | Emergency (ER) | payer OTHER ==
[2017-08-15 04:19] VITALS: BMI 21.7
[2017-08-15 04:39] VITALS: BP 126/86; PULSE 58; RESP 20; TEMP 97.6; O2SAT 99
--- NOTE | 2017-08-15 05:22 | C.PDOC ---
History Of Present Illness 36 y/o male patient presents to the ER with a wound check for stitches that were removed from a laceration 3 days ago. Patient denies any fever,discharge, or swelling on wound. Time Seen by Provider: 08/15/17 05:20 Chief Complaint (Nursing): Wound Check History Per: Patient History/Exam Limitations: no limitations Recent travel outside of the [place]: No Past Medical History Reviewed: Historical Data, Nursing Documentation, Vital Signs Vital Signs: Last Vital Signs Temp 97.6 F 08/15/17 04:35 Pulse 58 L 08/15/17 04:35 Resp 20 08/15/17 04:35 BP 126/86 08/15/17 04:35 Pulse Ox 99 08/15/17 06:21 - Medical History PMH: Asthma, Depression, Diabetes, Gastritis, HTN, Pancreatitis Surgical History: No Surg Hx - [facility] Procedures ALCOHOL DETOXIFICATION (05/29/14) INJECT/INFUSE NEC (01/29/15) OTHER GROUP THERAPY (08/12/13) TETANUS TOXOID ADMINIST (07/05/14) Family History: States: No Known Family Hx Denies: Unknown Family Hx - Social History Hx Tobacco Use: Yes Hx Alcohol Use: Yes Hx Substance Use: No - Immunization History Hx Tetanus Toxoid Vaccination: Yes (07/05/2014) Hx Influenza Vaccination: No Hx Pneumococcal Vaccination: No Review Of Systems Constitutional: Negative for: Fever Eyes: Positive for: Other (no discharge or swelling) Gastrointestinal: Negative for: Nausea, Vomiting Physical Exam - Physical Exam Appears: Non-toxic Skin: Warm, Dry Head: Normacephalic Eye(s): bilateral: Normal Inspection, EOMI, right: Other (abrasion over right eye,no erythema or discharge) Oral Mucosa: Moist Chest: Symmetrical Cardiovascular: Rhythm Regular Respiratory: Normal Breath Sounds Gastrointestinal/Abdominal: Soft, No Tenderness Neurological/Psych: Oriented x3 ED Course And Treatment O2 Sat by Pulse Oximetry: 99 (room air) Pulse Ox Interpretation: Normal Progress Note: Meds-Bacitracin Reevaluation Time: 06:21 Reassessment Condition: Improved Disposition Counseled Patient/Family Regarding: Studies Performed, Diagnosis, Need For Followup - Disposition Referrals: [facility] [Outside] Disposition: HOME/ ROUTINE Disposition Time: 05:20 Condition: FAIR Instructions: Acute Wound Care (ED) Forms: [employer] (Kiswahili) - Clinical Impression Clinical Impression: Visit for wound check - Scribe Statement The provider has reviewed the documentation as recorded by the Aris Arora Provider Attestation: All medical record entries made by the Ousmaneibe were at my direction and personally dictated by me. I have reviewed the chart and agree that the record accurately reflects my personal performance of the history, physical exam, medical decision making, and the department course for this patient. I have also personally directed, reviewed, and agree with the discharge instructions and disposition.
[2017-08-15] MEDS ORDERED: Bacitracin 500 Units/gm Oint Foilpak UD TOP ONE (05:32)
[2017-08-15] MEDS ORDERED: Bacitracin 500 Units/gm Oint Foilpak UD ONE (05:39)
== END 2017-08-15 06:00 | disposition home or self-care (01) ==
LOC: C.ER 04:18
DX: Z48.00 Encounter for change or removal of nonsurgical wound dressing (principal)

== ENCOUNTER 2017-10-13 21:14 | Emergency (ER) | payer OTHER ==
[2017-10-13 21:14] VITALS: BMI 21.7
--- NOTE | 2017-10-13 22:31 | C.PDOC ---
History Of Present Illness Patient presents to the ER with acute ETOH intoxication. Denies physical complaints at this time. Time Seen by Provider: 10/13/17 21:56 Chief Complaint (Nursing): Substance Abuse History Per: Patient History/Exam Limitations: no limitations Onset/Duration Of Symptoms: Hrs Current Symptoms Are (Timing): Still Present Suicide/Self Injury Attempted (Context): None Modifying Factor(s): Alcohol Associated Symptoms: denies: Depression, Suicidal Thoughts, Suicidal Plan Involuntary Hold By: None Recent travel outside of the [place]: No Past Medical History Reviewed: Historical Data, Nursing Documentation, Vital Signs Vital Signs: Last Vital Signs Temp 98.6 F 10/14/17 05:30 Pulse 78 10/14/17 05:30 Resp 20 10/14/17 05:30 BP 100/69 10/14/17 05:30 Pulse Ox 98 10/14/17 05:30 - Medical History PMH: Asthma, Depression, Diabetes, Gastritis, HTN, Pancreatitis Surgical History: No Surg Hx - [facility] Procedures ALCOHOL DETOXIFICATION (05/29/14) INJECT/INFUSE NEC (01/29/15) OTHER GROUP THERAPY (08/12/13) TETANUS TOXOID ADMINIST (07/05/14) Family History: States: Unknown Family Hx - Social History Hx Tobacco Use: Yes Hx Alcohol Use: Yes Hx Substance Use: No - Immunization History Hx Tetanus Toxoid Vaccination: Yes (07/05/2014) Hx Influenza Vaccination: No Hx Pneumococcal Vaccination: No Review Of Systems Constitutional: Negative for: Fever, Chills Gastrointestinal: Negative for: Nausea, Vomiting, Abdominal Pain Physical Exam - Physical Exam Appears: Non-toxic, No Acute Distress, Other (ETOH on breath, no trauma noted) Skin: Normal Color, Warm, Dry Head: Atraumatic, Normacephalic Eye(s): bilateral: Normal Inspection Oral Mucosa: Moist Chest: Symmetrical, No Tenderness Cardiovascular: Rhythm Regular Respiratory: Normal Breath Sounds, No Rales, No Rhonchi, No Wheezing Gastrointestinal/Abdominal: Soft, No Tenderness Neurological/Psych: Oriented x3, Normal Speech ED Course And Treatment O2 Sat by Pulse Oximetry: 98 (room air) Pulse Ox Interpretation: Normal Disposition - Disposition Referrals: [facility] [Outside] [facility] [Outside] Disposition: HOME/ ROUTINE Disposition Time: 05:30 Condition: IMPROVED Additional Instructions: Thank you for letting us take care of you today. The emergency medical care you received today was directed at your acute symptoms. If you were prescribed any medication, please fill it and take as directed. It may take several days for your symptoms to resolve. Return to the Emergency Department if your symptoms worsen, do not improve, or if you have any other problems. Please contact your doctor or call one of the physicians/clinics you have been referred to that are listed on the Patient Visit Information form that is included in your discharge packet. Bring any paperwork you were given at discharge with you along with any medications you are taking to your follow up visit. Our treatment cannot replace ongoing medical care by a primary care provider (PCP) outside of the emergency department. Thank you for allowing the [facility] team to be part of your care today. Follow up in the clinic in 3-5 days for outpatient care and further management. Instructions: Alcohol Intoxication (ED) Forms: [employer] (Slovak) - Clinical Impression Clinical Impression: Alcohol intoxication - Scribe Statement The provider has reviewed the documentation as recorded by the Scribe Farhan Modi All medical record entries made by the Scribe were at my direction and personally dictated by me. I have reviewed the chart and agree that the record accurately reflects my personal performance of the history, physical exam, medical decision making, and the department course for this patient. I have also personally directed, reviewed, and agree with the discharge instructions and disposition.
[2017-10-14 05:31] VITALS: BP 100/69; PULSE 78; RESP 20; TEMP 98.6; O2SAT 98
== END 2017-10-14 05:31 | disposition home or self-care (01) ==
LOC: C.ER 21:14
DX: F10.129 Alcohol abuse with intoxication, unspecified (principal); Y90.9 Presence of alcohol in blood, level not specified

== ENCOUNTER 2017-11-22 00:09 | Emergency (ER) | payer OTHER ==
[2017-11-22 00:10] VITALS: BMI 21.7
[2017-11-22 00:41] VITALS: O2SAT 97
[2017-11-22 03:44] VITALS: BP 118/66; PULSE 96; RESP 18; TEMP 97.9
--- NOTE | 2017-11-22 04:12 | C.PDOC ---
History Of Present Illness Patient presents to the ER with acute ETOH intoxication, requesting a place to spend the night. Denies physical complaints at this time. Time Seen by Provider: 11/22/17 01:01 Chief Complaint (Nursing): Substance Abuse History Per: Patient History/Exam Limitations: no limitations Onset/Duration Of Symptoms: Hrs Current Symptoms Are (Timing): Still Present Suicide/Self Injury Attempted (Context): None Modifying Factor(s): Alcohol Severity: None Pain Scale Rating Of: 0 Associated Symptoms: denies: Depression, Suicidal Thoughts, Suicidal Plan Involuntary Hold By: None Recent travel outside of the [place]: No Past Medical History Reviewed: Historical Data, Nursing Documentation, Vital Signs Vital Signs: Last Vital Signs Temp 97.9 F 11/22/17 03:44 Pulse 96 H 11/22/17 03:44 Resp 18 11/22/17 03:44 BP 118/66 11/22/17 03:44 Pulse Ox 97 11/22/17 04:15 - Medical History PMH: Asthma, Depression, Diabetes, Gastritis, HTN, Pancreatitis - [facility] Procedures ALCOHOL DETOXIFICATION (05/29/14) INJECT/INFUSE NEC (01/29/15) OTHER GROUP THERAPY (08/12/13) TETANUS TOXOID ADMINIST (07/05/14) Family History: States: No Known Family Hx - Social History Hx Tobacco Use: Yes Hx Alcohol Use: Yes Hx Substance Use: No - Immunization History Hx Tetanus Toxoid Vaccination: Yes (07/05/2014) Hx Influenza Vaccination: No Hx Pneumococcal Vaccination: No Review Of Systems Constitutional: Negative for: Fever, Chills Gastrointestinal: Negative for: Nausea, Vomiting, Diarrhea Physical Exam - Physical Exam Appears: Non-toxic, Other (ETOH on breath. No signs of injury.) Skin: Warm, Dry Head: Normacephalic Oral Mucosa: Moist Chest: Symmetrical, No Tenderness Cardiovascular: Rhythm Regular Respiratory: No Rales, No Rhonchi, No Wheezing Gastrointestinal/Abdominal: Soft, No Tenderness Neurological/Psych: Oriented x3 ED Course And Treatment O2 Sat by Pulse Oximetry: 97 (Room air) Pulse Ox Interpretation: Normal Disposition Counseled Patient/Family Regarding: Studies Performed, Diagnosis - Disposition Referrals: [facility] [Outside] Disposition: HOME/ ROUTINE Disposition Time: 04:11 Condition: FAIR Instructions: Alcohol Intoxication (DC) Forms: [employer] (Slovenian) - Clinical Impression Clinical Impression: Alcohol intoxication - Scribe Statement The provider has reviewed the documentation as recorded by the Scribe Farhan Modi All medical record entries made by the Scribe were at my direction and personally dictated by me. I have reviewed the chart and agree that the record accurately reflects my personal performance of the history, physical exam, medical decision making, and the department course for this patient. I have also personally directed, reviewed, and agree with the discharge instructions and disposition.
== END 2017-11-22 04:19 | disposition home or self-care (01) ==
LOC: C.ER 00:09
DX: F10.129 Alcohol abuse with intoxication, unspecified (principal); Y90.9 Presence of alcohol in blood, level not specified

== ENCOUNTER → 2017-11-23 20:19 | Emergency (ER) | payer OTHER ==
[2017-11-23 20:19] VITALS: BMI 21.7
== END | disposition left against medical advice (07) ==
LOC: C.ER 20:19
DX: Z02.89 Encounter for other administrative examinations (principal); R10.9 Unspecified abdominal pain

== ENCOUNTER 2017-12-29 14:05 | Emergency (ER) | payer OTHER ==
[2017-12-29 14:05] VITALS: BMI 21.7
[2017-12-29 14:13] VITALS: RESP 18; TEMP 98.4; O2SAT 98
--- NOTE | 2017-12-29 16:38 | CT ---
PROCEDURE: CT HEAD WITHOUT CONTRAST. HISTORY: head injury COMPARISON: Noncontrast head CT performed 08/03/17 TECHNIQUE: Axial computed tomography images were obtained through the head/brain without intravenous contrast. Radiation dose: Total exam DLP = 841.51 mGy-cm. This CT exam was performed using one or more of the following dose reduction techniques: Automated exposure control, adjustment of the mA and/or kV according to patient size, and/or use of iterative reconstruction technique. FINDINGS: HEMORRHAGE: No intracranial hemorrhage. BRAIN: No mass effect or edema. Mild atrophy re-identified, greater than expected for patient of this age. The zuleta-white matter differentiation appears intact. VENTRICLES: No hydrocephalus. CALVARIUM: Unremarkable. PARANASAL SINUSES: Unremarkable as visualized. No significant inflammatory changes. MASTOID AIR CELLS: Unremarkable as visualized. No inflammatory changes. OTHER FINDINGS: Mild frontal scalp hematoma. IMPRESSION: Mild frontal scalp hematoma. Mild atrophy re-identified, greater than expected for patient of this age. No acute intracranial pathology identified.
--- NOTE | 2017-12-29 16:52 | CT ---
CT cervical spine without IV contrast Indication: Injury, rule out fracture Comparison: None available. Technique: Axial computed tomography images were obtained of the cervical spine without the use of intravenous contrast. Coronal and sagittal reformatted images were created and reviewed. This CT exam was performed using 1 or more of the following dose reduction techniques: Automated exposure control, adjustment of the MAA and/or kV according to patient size, and/or use of iterative reconstruction technique. Radiation dose: Total exam DLP = 1093.18 mGy-cm. Findings: There is no evidence of acute fracture or subluxation. There is preserved alignment, vertebral body height, intervertebral disc spaces. The prevertebral soft tissues and spinolaminar lines appear intact. The lateral masses are preserved. The dens tip is intact. There is proper alignment of the lateral masses of C1 with the C2 vertebral body. Included portions of the thyroid gland appear unremarkable. Included portions of lung apices appear clear. Impression: No evidence of acute fracture or subluxation.
--- NOTE | 2017-12-29 17:01 | C.PDOC ---
History Of Present Illness Patient reports that he was drinking several hours ago, had mechanical trip and fall injurying the head and neck. Fall happened 2 hours and had ? LOC. EMS called and the patient was placed in a C-collar. Denies nausea, vomiting, diarrhea, change in vision, seizures, focal deficits. - HPI Time Seen by Provider: 12/29/17 14:47 Chief Complaint (Nursing): Trauma History Per: Patient, EMS History/Exam Limitations: no limitations Injury Occurred (Timing): Hours Ago: Recent travel outside of the [place]: No Past Medical History Reviewed: Historical Data, Nursing Documentation, Vital Signs Vital Signs: Last Vital Signs Temp 98.4 F 12/29/17 14:09 Pulse 94 H 12/29/17 17:27 Resp 18 12/29/17 17:27 BP 132/75 12/29/17 17:27 Pulse Ox 98 12/29/17 17:56 - Medical History PMH: Asthma, Depression, Diabetes, Gastritis, HTN, Pancreatitis Denies: Chronic Kidney Disease - [facility] Procedures ALCOHOL DETOXIFICATION (05/29/14) INJECT/INFUSE NEC (01/29/15) OTHER GROUP THERAPY (08/12/13) TETANUS TOXOID ADMINIST (07/05/14) Family History: States: Unknown Family Hx - Social History Hx Tobacco Use: Yes Hx Alcohol Use: Yes Hx Substance Use: Yes - Immunization History Hx Tetanus Toxoid Vaccination: Yes (07/05/2014) Hx Influenza Vaccination: No Hx Pneumococcal Vaccination: No Review Of Systems Except As Marked, All Systems Reviewed And Found Negative. Physical Exam - Physical Exam Appears: Well, No Acute Distress Skin: Normal Color, Warm, Rash Head: Atraumatic, Normacephalic Eye(s): bilateral: Normal Inspection, PERRL, EOMI Oral Mucosa: Moist Throat: No Erythema, No Exudate Neck: Other (Patient in C-collar, (+) paralumbar tenderness) Chest: Symmetrical, No Tenderness Cardiovascular: Rhythm Regular, No Friction Rub, No Murmur Respiratory: Normal Breath Sounds, No Rales, No Rhonchi, No Wheezing Gastrointestinal/Abdominal: Soft, No Tenderness Back: Normal Inspection, No CVA Tenderness, No Vertebral Tenderness, No Paraspinal Tenderness Extremity: Normal ROM, No Swelling Neurological/Psych: Oriented x3, Normal Speech, Normal Cranial Nerves, Normal Motor Gait: Steady ED Course And Treatment O2 Sat by Pulse Oximetry: 98 (on RA) Pulse Ox Interpretation: Normal Medical Decision Making Medical Decision Making: On re-exam, the patient reports improvement of symptoms. Lungs are CTA, heart is RRR, abdomen is soft, non-tender and the patient is tolerating Po well. Patient is ambulatory in the ED with steady gait. Follow up with the medical doctor within 1-2 days. Return if worsened. Disposition - Disposition Referrals: [facility] [Outside] Disposition: HOME/ ROUTINE Disposition Time: 17:19 Condition: FAIR Additional Instructions: Follow up with the medical doctor within 1-2 days. Return if worsened. Instructions: Whiplash (DC), Minor Head Injury Forms: [employer] (Eritrean) - Clinical Impression Clinical Impression: Head injury, Cervical strain
[2017-12-29 17:28] VITALS: BP 132/75; PULSE 94
== END 2017-12-29 17:28 | disposition home or self-care (01) ==
LOC: C.ER 14:05
DX: S16.1XXA Strain of muscle, fascia and tendon at neck level, initial encounter (principal); S09.90XA Unspecified injury of head, initial encounter; W01.0XXA Fall on same level from slipping, tripping and stumbling without subsequent striking against object, initial encounter; I10 Essential (primary) hypertension; E11.9 Type 2 diabetes mellitus without complications

== ENCOUNTER 2018-01-10 22:06 | Emergency (ER) | payer OTHER ==
[2018-01-10 22:06] VITALS: BMI 21.7
--- NOTE | 2018-01-10 22:36 | C.PDOC ---
History Of Present Illness 37 yo male, hx of htn, presetns with cp, he "has had for a while". state recently admitted to another institution. no fevers, cough, n/v/d, sob. pt well known to er. drinking coffee in nad. Time Seen by Provider: 01/10/18 22:26 Chief Complaint (Nursing): Chest Pain Past Medical History Reviewed: Historical Data, Nursing Documentation, Vital Signs Vital Signs: Last Vital Signs Temp 98.7 F 01/10/18 22:17 Pulse 100 H 01/10/18 22:17 Resp 18 01/10/18 22:17 BP 117/84 01/10/18 22:17 Pulse Ox 100 01/10/18 22:39 - Medical History PMH: Asthma, Depression, Diabetes, Gastritis, HTN, Pancreatitis Denies: Chronic Kidney Disease - [facility] Procedures ALCOHOL DETOXIFICATION (05/29/14) INJECT/INFUSE NEC (01/29/15) OTHER GROUP THERAPY (08/12/13) TETANUS TOXOID ADMINIST (07/05/14) Family History: States: Unknown Family Hx - Social History Hx Tobacco Use: Yes Hx Alcohol Use: Yes Hx Substance Use: Yes - Immunization History Hx Tetanus Toxoid Vaccination: Yes (07/05/2014) Hx Influenza Vaccination: No Hx Pneumococcal Vaccination: No Review Of Systems Except As Marked, All Systems Reviewed And Found Negative. Cardiovascular: Positive for: Chest Pain Physical Exam - Physical Exam Appears: Well, No Acute Distress Skin: Normal Color, Warm, Dry Eye(s): bilateral: Normal Inspection, PERRL, EOMI Nose: Normal Throat: Normal Neck: Normal Cardiovascular: Rhythm Regular Respiratory: Normal Breath Sounds Gastrointestinal/Abdominal: Normal Exam Back: Normal Inspection Extremity: Normal ROM ED Course And Treatment - Laboratory Results Result Diagrams: 01/10/18 23:01 01/10/18 23:01 O2 Sat by Pulse Oximetry: 100 Medical Decision Making Medical Decision Making: ekg nsr [address] twave changes labs cxr pending pt reassessed in nad. cxr neg as read by me. trop neg x 1 for "chronic pain" Disposition - Disposition Referrals: [facility] [Outside] [facility] [Outside] Pieter Cannon MD [Staff Provider] - Non [facility] Provider, [Primary Care Provider] - Disposition: HOME/ ROUTINE Disposition Time: 01:00 Condition: STABLE Instructions: Chest Pain Forms: [facility] (Argentine) - Clinical Impression Clinical Impression: Chest pain
[2018-01-10 23:13] LABS: BASO # 0.1 K/uL (0.0-0.2); BASO % 1.1 % (0.0-2.0); EOS % 0.3 % (0.0-4.0); HEMOGLOBIN 12.5 g/dL (12.0-18.0); LYMPH # 2.6 K/uL (1.0-4.3); LYMPH % 57.8 % (20.0-40.0); MEAN CELL VOLUME 83.6 fL (80.0-94.0); MEAN CORPUSCULAR HEMOGLOBIN 28.2 pg (27.0-31.0); MEAN CORPUSCULAR HGB CONC 33.8 g/dL (33.0-37.0); MEAN PLATELET VOLUME 7.7 fL (7.2-11.7); MONO # 0.3 K/uL (0.0-0.8); MONO % 7.2 % (0.0-10.0); NEUT # 1.5 K/uL (1.8-7.0); NEUT % 33.6 % (50.0-75.0); NRBC % 0.1 % (0.0-2.0); RBC 4.44 Mil/uL (4.40-5.90); RED CELL DISTRIBUTION WIDTH 15.6 % (11.5-14.5); WHITE BLOOD COUNT 4.4 K/uL (4.8-10.8)
[2018-01-10 23:16] LABS: ALB/GLOB RATIO 1.3 (1.0-2.1); ALBUMIN 4.1 g/dL (3.5-5.0); ALT/SGPT 76 U/L (21-72); AST/SGOT 99 U/L (17-59); BLOOD UREA NITROGEN 6 mg/dL (9-20); CALCIUM 8.1 mg/dl (8.6-10.4); GFR AFRICAN-AMERICAN > 60; GFR NON-AFRICAN AMERICAN > 60
[2018-01-11] MEDS ORDERED: Potassium Chloride 20 mEq ER Tab PO STA (00:51)
[2018-01-11] MEDS ORDERED: Potassium Chloride 20 mEq ER Tab PO ONE (02:41)
[2018-01-11 04:39] VITALS: BP 117/61; PULSE 96; RESP 16; TEMP 98.6; O2SAT 98
--- NOTE | 2018-01-11 08:40 | RAD ---
Chest x-ray two views History: Chest pain. Comparison: None available. Findings: No focal infiltrate or effusion. Heart size within normal limits. Impression: No focal infiltrate or effusion.
--- NOTE | 2018-01-11 12:36 | CARD ---
APPROVED REPORT EKG Measurement Heart [id number] <Conclusion> Normal sinus rhythm Normal ECG
== END 2018-01-11 05:30 | disposition home or self-care (01) ==
LOC: SUPCPDRO 22:06 → C.ER 22:06
DX: R07.9 Chest pain, unspecified (principal); E11.9 Type 2 diabetes mellitus without complications; I10 Essential (primary) hypertension; Z72.0 Tobacco use

== ENCOUNTER 2018-01-17 22:23 | Emergency (ER) | payer OTHER ==
[2018-01-17 22:24] VITALS: BMI 21.7
[2018-01-18 04:24] VITALS: RESP 18
[2018-01-18 05:27] VITALS: BP 131/74; PULSE 75; TEMP 98.7; O2SAT 97
--- NOTE | 2018-01-18 05:36 | C.PDOC ---
History Of Present Illness Pt admits to drinking alcohol tonight. Time Seen by Provider: 01/17/18 23:38 Chief Complaint (Nursing): Substance Abuse History Per: Patient History/Exam Limitations: intoxication Onset/Duration Of Symptoms: Unknown (tonight) Current Symptoms Are (Timing): Still Present Suicide/Self Injury Attempted (Context): None Modifying Factor(s): Alcohol Severity: Moderate Associated Symptoms: denies: Suicidal Thoughts, Suicidal Plan Additional History Per: Prior Records Past Medical History Reviewed: Historical Data, Nursing Documentation, Vital Signs Vital Signs: Last Vital Signs Temp 98.7 F 01/18/18 05:27 Pulse 75 01/18/18 05:27 Resp 18 01/18/18 05:27 BP 131/74 01/18/18 05:27 Pulse Ox 97 01/18/18 05:27 - Medical History PMH: Asthma, Depression, Diabetes, Gastritis, HTN, Pancreatitis Other PMH: Alcohol abuse - [facility] Procedures ALCOHOL DETOXIFICATION (05/29/14) INJECT/INFUSE NEC (01/29/15) OTHER GROUP THERAPY (08/12/13) TETANUS TOXOID ADMINIST (07/05/14) Family History: States: Unknown Family Hx - Social History Hx Tobacco Use: Yes Hx Alcohol Use: Yes Hx Substance Use: No - Immunization History Hx Tetanus Toxoid Vaccination: Yes (07/05/2014) Hx Influenza Vaccination: No Hx Pneumococcal Vaccination: No Review Of Systems Review Of Systems: ROS cannot be obtained secondary to pt's inabilty to answer questions. Physical Exam - Physical Exam Appears: Non-toxic, No Acute Distress, Other (AOB, intoxicated) Skin: Normal Color, Warm, Dry Head: Atraumatic, Normacephalic Eye(s): bilateral: PERRL, EOMI Neck: Normal ROM, No Midline Cervical Tenderness, No Step Off Deformity, Supple Chest: Symmetrical, No Deformity Cardiovascular: Rhythm Regular Respiratory: Normal Breath Sounds, No Accessory Muscle Use Gastrointestinal/Abdominal: Soft Extremity: Normal ROM Neurological/Psych: Normal Motor, Normal Sensation, Slow To Respond With Command Gait: Unable To Assess ED Course And Treatment O2 Sat by Pulse Oximetry: 97 Pulse Ox Interpretation: Normal Progress Note: Pt in now clinically sober. AAOx3. Steady gait. Reassessment Condition: Improved Disposition Counseled Patient/Family Regarding: Diagnosis, Need For Followup - Disposition Disposition: HOME/ ROUTINE Disposition Time: 05:36 Condition: IMPROVED Additional Instructions: Avoid alcohol. Follow up with your doctor. Return to the ER if you develop worsening of symptoms or if you have any other concerns. Instructions: Alcohol Abuse and Alcoholism (DC) - Clinical Impression Clinical Impression: Alcohol abuse
== END 2018-01-18 05:57 | disposition home or self-care (01) ==
LOC: C.ER 22:23
DX: F10.10 Alcohol abuse, uncomplicated (principal); Y90.9 Presence of alcohol in blood, level not specified

== ENCOUNTER 2018-02-14 04:41 | Emergency (ER) | payer OTHER ==
[2018-02-14 04:46] VITALS: BMI 23.0
--- NOTE | 2018-02-14 05:28 | C.PDOC ---
History Of Present Illness 37 year old male with PMHx of chronic alcohlism presents to the ED c/o of feeling of balance. Patient admits to drinking alcohol today. Patient denies SI/ HI, hallucinations, CP, SOB, abdominal pain. Time Seen by Provider: 02/14/18 04:58 Chief Complaint (Nursing): Substance Abuse History Per: Patient History/Exam Limitations: intoxication Onset/Duration Of Symptoms: Hrs Current Symptoms Are (Timing): Still Present Suicide/Self Injury Attempted (Context): None Modifying Factor(s): Alcohol Associated Symptoms: denies: Depression, Suicidal Thoughts, Suicidal Plan Recent travel outside of the [place]: No Additional History Per: Patient Past Medical History Reviewed: Historical Data, Nursing Documentation, Vital Signs Vital Signs: Last Vital Signs Temp 97.4 F L 02/14/18 04:53 Pulse 84 02/14/18 04:53 Resp 14 02/14/18 04:53 BP 156/93 H 02/14/18 04:53 Pulse Ox 96 02/14/18 05:29 - Medical History PMH: Asthma, Depression, Diabetes, Gastritis, HTN, Pancreatitis Denies: Chronic Kidney Disease Surgical History: No Surg Hx - [facility] Procedures ALCOHOL DETOXIFICATION (05/29/14) INJECT/INFUSE NEC (01/29/15) OTHER GROUP THERAPY (08/12/13) TETANUS TOXOID ADMINIST (07/05/14) Family History: States: Unknown Family Hx - Social History Hx Tobacco Use: Yes Hx Alcohol Use: Yes Hx Substance Use: No - Immunization History Hx Tetanus Toxoid Vaccination: Yes (07/05/2014) Hx Influenza Vaccination: No Hx Pneumococcal Vaccination: No Review Of Systems Constitutional: Negative for: Fever, Chills Cardiovascular: Negative for: Chest Pain Respiratory: Negative for: Shortness of Breath Gastrointestinal: Negative for: Vomiting Skin: Negative for: Rash Psych: Negative for: Depression, Suicidal ideation Physical Exam - Physical Exam Appears: Non-toxic, No Acute Distress, Other (AOB) Skin: Normal Color, Warm, Dry Head: Atraumatic, Normacephalic Eye(s): bilateral: Normal Inspection Nose: No Discharge Oral Mucosa: Moist Neck: Normal ROM, Supple Chest: Symmetrical Cardiovascular: Rhythm Regular, No Murmur Respiratory: Normal Breath Sounds, No Rales, No Rhonchi, No Wheezing Gastrointestinal/Abdominal: Soft, No Tenderness, No Guarding, No Rebound Extremity: Normal ROM, No Tenderness, No Swelling Neurological/Psych: Oriented x3 Gait: Unsteady (due to alcohol consumption) ED Course And Treatment O2 Sat by Pulse Oximetry: 96 (ON RA) Pulse Ox Interpretation: Normal Progress Note: Pt is ambulatory to bathroom with steady gait, AAO x 3. Pt is stable for discharge Reevaluation Time: 06:51 Disposition Counseled Patient/Family Regarding: Diagnosis, Need For Followup, Rx Given - Disposition Disposition: HOME/ ROUTINE Disposition Time: 06:07 Condition: STABLE Forms: [facility] (Japanese), General Discharge Instructions - Clinical Impression Clinical Impression: Alcohol abuse - PA / REGISTERED VASCULAR TECHNOLOGIST (RVT) / Resident Statement MD/DO has reviewed & agrees with the documentation as recorded. - Scribe Statement The provider has reviewed the documentation as recorded by the Scribe Thompson Henderson All medical record entries made by the Scribe were at my direction and personally dictated by me. I have reviewed the chart and agree that the record accurately reflects my personal performance of the history, physical exam, medical decision making, and the department course for this patient. I have also personally directed, reviewed, and agree with the discharge instructions and disposition.
[2018-02-14 06:59] VITALS: BP 144/78; PULSE 71; RESP 18; TEMP 98.1
[2018-02-14 21:28] VITALS: O2SAT 96
== END 2018-02-14 06:57 | disposition home or self-care (01) ==
LOC: C.ER 04:41
DX: F10.10 Alcohol abuse, uncomplicated (principal); E11.9 Type 2 diabetes mellitus without complications

== ENCOUNTER 2018-02-15 22:00 | Inpatient (IN) | payer OTHER ==
[2018-02-15 22:01] VITALS: BMI 23.0
[2018-02-15] MEDS ORDERED: Benzoin Compound Tincture (60 ml) ONE (23:00)
[2018-02-15] MEDS ORDERED: Sodium Chloride 0.9% 1,000 ML IV ONE (23:08)
[2018-02-15] MEDS ORDERED: Multivitamin (MVI) 10 ML, Thiamine 100 MG, Folic Acid 1 MG in Sodium Chloride 0.9% 1,00... IV ONE (23:12)
[2018-02-15] MEDS ORDERED: Magnesium Sulfate 1 gm in D5W 1 GM/100 ML BAG IVPB ONE ×2 (23:13→23:25)
--- NOTE | 2018-02-15 23:14 | C.PDOC ---
History Of Present Illness 37 y/o male with longstanding alcohol dependency presents to the ED for evaluation following witnessed seizure at home. As per mother, patient drinks every day. He occasionally stays with her, and mother notes for the past 24 hours patient has not been drinking alcohol. Patients last ED visit here was 2 days ago. During assessment, patient had a generalized tonic-clonic seizure with postictal confusion, tongue biting, and diffuse diaphoresis. Given Ativan x 2 doses. Patient unable to provide history. No prior seizure history as per mother. Time Seen by Provider: 02/15/18 23:01 Chief Complaint (Nursing): Seizure History Per: Patient History/Exam Limitations: clinical condition Recent Seizure Activity Began: Hours Ago: (2) Quality Of Seizure: Generalized Associated Symptoms: Bit Tongue Post-ictal Period: Yes Past Medical History Reviewed: Historical Data, Nursing Documentation, Vital Signs Vital Signs: Last Vital Signs Temp 97.8 F 02/17/18 05:57 Pulse 65 02/17/18 05:57 Resp 20 02/17/18 05:57 BP 151/99 H 02/17/18 05:57 Pulse Ox 100 02/16/18 23:50 - Medical History PMH: Asthma, Depression, Diabetes, Gastritis, HTN, Pancreatitis Denies: Chronic Kidney Disease Surgical History: No Surg Hx - [facility] Procedures ALCOHOL DETOXIFICATION (05/29/14) INJECT/INFUSE NEC (01/29/15) OTHER GROUP THERAPY (08/12/13) TETANUS TOXOID ADMINIST (07/05/14) Family History: States: Unknown Family Hx - Social History Hx Tobacco Use: Yes Hx Alcohol Use: Yes Hx Substance Use: No - Immunization History Hx Tetanus Toxoid Vaccination: Yes (07/05/2014) Hx Influenza Vaccination: No Hx Pneumococcal Vaccination: No Review Of Systems Review Of Systems: ROS cannot be obtained secondary to pt's inabilty to answer questions. Physical Exam - Physical Exam Appears: Confused, Other (Fighting, combative, poor overall hygeine) Skin: Warm, Diaphoretic Head: Atraumatic, Normacephalic, No Tenderness, No Swelling Eye(s): bilateral: Normal Inspection, PERRL, EOMI Nose: Normal Tongue: Bleeding (Active bleeding from tongue) Neck: Normal ROM, Supple Chest: Symmetrical Cardiovascular: Rhythm Regular (but tachy in the 120s), No Murmur Respiratory: Normal Breath Sounds, No Rales, No Rhonchi, No Wheezing Gastrointestinal/Abdominal: Soft, No Tenderness, No Distention Extremity: Bilateral: Atraumatic, Normal Color And Temperature, Normal ROM Pulses: Left Dorsalis Pedis: Normal, Right Dorsalis Pedis: Normal Neurological/Psych: Other (Confused, moving all extremities, no obvious cranial nerve deficit, not verbalizing answers to questions or following commands) Gait: Unable To Assess ED Course And Treatment - Laboratory Results Result Diagrams: 02/15/18 23:18 02/15/18 23:18 O2 Sat by Pulse Oximetry: 98 (RA) Pulse Ox Interpretation: Normal - Radiology CXR: Interpreted by Me, Viewed By Me CXR Interpretation: Yes: No Acute Disease - CT Scan/US CT head Other Rad Studies (CT/US): Read By Radiologist, Radiology Report Reviewed CT/US Interpretation: FINDINGS: Limitations: Motion artifact - mild. Brain: Moderate atrophy. No definite intracranial hemorrhage. No mass. Minimal decreased. attenuation within periventricular white matter. No definite edema. Ventricles: No hydrocephalus. Bones/joints: No acute fracture. Chronic fracture deformity of LEFT zygomatic arch. Soft tissues: Unremarkable. Sinuses : Scattered minimal to mild mucosal thickening. Mastoid air cells: No mastoid effusion. Orbits: Unremarkable as visualized. IMPRESSION: 1. Nonspecific white matter changes. Acute infarction may be CT occult within first 24 hours. If a. focal deficit persists, consider followup CT or MRI for further evaluation. 2. Incidental/non-acute findings are described above. Thank you for allowing us to participate in the care of your patient. Dictated and Authenticated by: Xander Edwards MD. 02/16/2018 12:00 AM Eastern Time ([place] & [place]) Medical Decision Making Medical Decision Making: Initial impression: Alcohol withdrawal seizures, new onset Time: 23:08 Plan: * CT Head * Chest x-ray * Routine labs * Ativan 2 mg IV * IV fluids * Mag Sulfate 1 gm in D5W 00:54 Pt will be admitted inpatient under Dr. Landen Soler for new onset seizures Disposition Counseled Patient/Family Regarding: Studies Performed, Diagnosis - Disposition Disposition: HOSPITALIZED Disposition Time: 00:54 Condition: FAIR - Clinical Impression Clinical Impression: Tonic-clonic seizure, Alcohol withdrawal seizure - Scribe Statement The provider has reviewed the documentation as recorded by the Scribe (Melody Sorenson) Provider Attestation: All medical record entries made by the Scribe were at my direction and personally dictated by me. I have reviewed the chart and agree that the record accurately reflects my personal performance of the history, physical exam, medical decision making, and the department course for this patient. I have also personally directed, reviewed, and agree with the discharge instructions and disposition.
[2018-02-15 23:21] LABS: BASO # 0.1 K/uL (0.0-0.2); BASO % 0.9 % (0.0-2.0); EOS % 0.4 % (0.0-4.0); HEMOGLOBIN 13.1 g/dL (12.0-18.0); LYMPH # 0.9 K/uL (1.0-4.3); LYMPH % 16.8 % (20.0-40.0); MEAN CORPUSCULAR HEMOGLOBIN 28.8 pg (27.0-31.0); MEAN CORPUSCULAR HGB CONC 33.7 g/dL (33.0-37.0); MEAN PLATELET VOLUME 8.1 fL (7.2-11.7); MONO # 0.6 K/uL (0.0-0.8); NEUT % 70.9 % (50.0-75.0); NRBC % 0.1 % (0.0-2.0); RBC 4.53 Mil/uL (4.40-5.90); RED CELL DISTRIBUTION WIDTH 16.1 % (11.5-14.5); WHITE BLOOD COUNT 5.7 K/uL (4.8-10.8)
[2018-02-15 23:22] LABS: MEAN CELL VOLUME 85.7 fL (80.0-94.0)
[2018-02-15 23:34] LABS: ALB/GLOB RATIO 1.1 (1.0-2.1); ALBUMIN 4.4 g/dL (3.5-5.0); ALT/SGPT 56 U/L (21-72); AST/SGOT 136 U/L (17-59); BLOOD UREA NITROGEN 7 mg/dL (9-20); CALCIUM 9.3 mg/dl (8.6-10.4); GFR AFRICAN-AMERICAN > 60; GFR NON-AFRICAN AMERICAN > 60
--- NOTE | 2018-02-16 00:01 | CT ---
EXAM: CT Head Without Intravenous Contrast CLINICAL HISTORY: 37 years old, male; Pain; Headache and other: Seizure TECHNIQUE: Axial computed tomography images of the head/brain without intravenous contrast. All CT scans at this facility use one or more dose reduction techniques, viz.: automated exposure control; ma/kV adjustment per patient size (including targeted exams where dose is matched to indication; i.e. head); or iterative reconstruction technique. COMPARISON: No relevant prior studies available. FINDINGS: Limitations: Motion artifact - mild. Brain: Moderate atrophy. No definite intracranial hemorrhage. No mass. Minimal decreased attenuation within periventricular white matter. No definite edema. Ventricles: No hydrocephalus. Bones/joints: No acute fracture. Chronic fracture deformity of LEFT zygomatic arch. Soft tissues: Unremarkable. Sinuses: Scattered minimal to mild mucosal thickening. Mastoid air cells: No mastoid effusion. Orbits: Unremarkable as visualized. IMPRESSION: 1. Nonspecific white matter changes. Acute infarction may be CT occult within first 24 hours. If a focal deficit persists, consider followup CT or MRI for further evaluation. 2. Incidental/non-acute findings are described above.
[2018-02-16] MEDS ORDERED: Folic Acid 1 MG, Thiamine 100 MG, Multivitamin (MVI) 10 ML in Dextrose 5% In Water 1,00... IV SCH (03:30)
[2018-02-16] MEDS: Dextrose 5%/0.45% NS 1,000 ML IV SCH ×2 (07:18→18:37)
[2018-02-16] MEDS: Albuterol-Ipratrop 3 mg / 0.5 (3 ml) UD INH SCH ×3 (08:30→21:08)
[2018-02-16 08:44] LABS: ALB/GLOB RATIO 1.1 (1.0-2.1); ALBUMIN 3.9 g/dL (3.5-5.0); BILIRUBIN,DIRECT 0.3 mg/dL (0.0-0.4)
[2018-02-16 08:55] LABS: FREE T4 0.75 ng/dL (0.78-2.19)
[2018-02-16 08:58] LABS: BARBITURATES, UR NEGATIVE (NEGATIVE); BENZODIAZEPINES, UR NEGATIVE (NEGATIVE); OPIATES, UR NEGATIVE (NEGATIVE); PHENCYCLIDINE, UR NEGATIVE (NEGATIVE)
[2018-02-16 09:02] LABS: URINE BILIRUBIN NEGATIVE (NEGATIVE); URINE BLOOD NEGATIVE (NEGATIVE); URINE CLARITY Clear (Clear); URINE COLOR Yellow (YELLOW); URINE GLUCOSE (UA) NORMAL (Normal); URINE LEUKOCYTE ESTERASE NEG Leu/uL (Negative); URINE PROTEIN NEGATIVE (NEGATIVE); URINE UROBILINOGEN NORMAL mg/dL (0.2-1.0)
--- NOTE | 2018-02-16 09:27 | RAD ---
Chest x-ray single frontal view History: Seizure. Comparison: 01/10/2018 Findings: Mild venous congestion. Heart size within normal limits. Tubing projects over the chest, likely external. Impression: No focal infiltrate or effusion.
[2018-02-16] MEDS: Enoxaparin 40 mg Syringe SC SCH (09:38)
[2018-02-16] MEDS: Pantoprazole 40 mg EC Tab PO SCH (09:38)
--- NOTE | 2018-02-16 11:53 | CP.PCM.PN ---
<Lindsay Menendez - Last Filed: 02/16/18 14:07> Subjective - Date & Time of Evaluation Date of Evaluation: 02/16/18 Time of Evaluation: 08:00 - Subjective Subjective: PGY 2 medicine progress not for Dr. Landen Soler: Patient seen and examined at bedside this morning. Patient was awake but kept falling asleep during the encounter. He stated that he drinks daily and his last drinks was two days ago. He reports that he had a seizure yesterday while at his aunts but could not provide more details. Patient states that he has some pain in his chest and epigastrium region and that he vomited once yesterday. He reports that he is eating well and having normal bowel movements. Objective - Vital Signs/Intake and Output Vital Signs (last 24 hours): Temp Pulse Resp BP Pulse Ox 98.8 F 67 20 152/90 H 99 02/16/18 07:00 02/16/18 07:00 02/16/18 07:00 02/16/18 07:00 02/16/18 07:00 - Medications Medications: Current Medications Albuterol/Ipratropium (Duoneb 3 Mg/0.5 Mg (3 Ml) Ud) 3 ml INH RQ6 [facility] Last Admin: 02/16/18 08:30 Dose: Not Given Chlordiazepoxide (Librium) 25 mg PO Q8 PRN PRN Reason: DELIRIUM TREMORS Last Admin: 02/16/18 05:22 Dose: 25 mg Chlordiazepoxide (Librium) 25 mg PO Q12H [facility] Last Admin: 02/16/18 07:26 Dose: Not Given Clonidine HCl (Catapres) 0.1 mg PO Q8H [facility] Last Admin: 02/16/18 05:22 Dose: 0.1 mg Enoxaparin Sodium (Lovenox) 40 mg SC DAILY [facility] Last Admin: 02/16/18 09:38 Dose: 40 mg Folic Acid 1 mg/ Thiamine HCl 100 mg/ Multivitamins/Vitamin C 10 ml/ Sodium Chloride 1,011.2 mls @ 42 mls/hr IV .Q24H [facility] Dextrose/Sodium Chloride (Dextrose 5%/0.45% Ns 1000 Ml) 1,000 mls @ 100 mls/hr IV .Q10H [facility] Last Admin: 02/16/18 07:18 Dose: 100 mls/hr Levetiracetam (Keppra) 500 mg PO BID [facility] Last Admin: 02/16/18 09:38 Dose: 500 mg Pantoprazole Sodium (Protonix Ec Tab) 40 mg PO DAILY [facility] Last Admin: 02/16/18 09:38 Dose: 40 mg Thiamine HCl (Vitamin B1 Tab) 100 mg PO DAILY [facility] - Labs Labs: 02/15/18 23:18 02/15/18 23:18 - Constitutional Appears: Non-toxic, No Acute Distress, Unkempt - Head Exam Head Exam: ATRAUMATIC, NORMAL INSPECTION - Eye Exam Eye Exam: EOMI - ENT Exam ENT Exam: Mucous Membranes Moist - Respiratory Exam Respiratory Exam: Clear to Ausculation Bilateral, NORMAL BREATHING PATTERN. absent: Respiratory Distress - Cardiovascular Exam Cardiovascular Exam: REGULAR RHYTHM, +S1, +S2 - GI/Abdominal Exam GI & Abdominal Exam: Soft, Normal Bowel Sounds. absent: Distended, Firm, Guarding, Tenderness - Extremities Exam Extremities Exam: Normal Inspection. absent: Calf Tenderness, Pedal Edema - Back Exam Back Exam: NORMAL INSPECTION - Neurological Exam Neurological Exam: Alert, Awake. absent: Oriented x3 - Psychiatric Exam Psychiatric exam: Flat Affect, Normal Affect, Normal Mood Assessment and Plan - Assessment and Plan (Free Text) Assessment: Seizure disorder likely secondary to alcohol use Dr. Trotter - neurology - help appreciated NS at 100 cc/hour Keppra 500mg PO BID Head CT - no bleed or acute changes Chest X ray no active disease f/u MRI f/u labs Alcohol Withdrawal Thiamine 100mg PO daily Banana bag seizure/aspiration precautions monitor for signs of withdrawal Librium 25mg PO Q12 Clonidine 0.1 mg PO Q8 Prophylactic Measures Protonix 40mg PO daily Lovenox 40mg SC daily All management per Dr. Landen Soler *The family would like to be noted before the patient is discharged. <Hillary Soler - Last Filed: 02/16/18 23:31> Objective - Vital Signs/Intake and Output Vital Signs (last 24 hours): Temp Pulse Resp BP Pulse Ox 98.6 F 74 20 134/88 100 02/16/18 17:10 02/16/18 17:10 02/16/18 17:10 02/16/18 17:10 02/16/18 17:10 - Medications Medications: Current Medications Albuterol/Ipratropium (Duoneb 3 Mg/0.5 Mg (3 Ml) Ud) 3 ml INH RQ6 [facility] Last Admin: 02/16/18 21:08 Dose: 3 ml Chlordiazepoxide (Librium) 25 mg PO Q8 PRN PRN Reason: DELIRIUM TREMORS Last Admin: 02/16/18 05:22 Dose: 25 mg Chlordiazepoxide (Librium) 25 mg PO Q12H [facility] Last Admin: 02/16/18 18:30 Dose: 25 mg Clonidine HCl (Catapres) 0.1 mg PO Q8H [facility] Last Admin: 02/16/18 22:56 Dose: 0.1 mg Enoxaparin Sodium (Lovenox) 40 mg SC DAILY [facility] Last Admin: 02/16/18 09:38 Dose: 40 mg Folic Acid 1 mg/ Thiamine HCl 100 mg/ Multivitamins/Vitamin C 10 ml/ Sodium Chloride 1,011.2 mls @ 42 mls/hr IV .Q24H [facility] Dextrose/Sodium Chloride (Dextrose 5%/0.45% Ns 1000 Ml) 1,000 mls @ 100 mls/hr IV .Q10H [facility] Last Admin: 02/16/18 18:37 Dose: 100 mls/hr Levetiracetam (Keppra) 500 mg PO BID [facility] Last Admin: 02/16/18 18:30 Dose: 500 mg Pantoprazole Sodium (Protonix Ec Tab) 40 mg PO DAILY [facility] Last Admin: 02/16/18 09:38 Dose: 40 mg Thiamine HCl (Vitamin B1 Tab) 100 mg PO DAILY [facility] Last Admin: 02/16/18 13:28 Dose: 100 mg - Labs Labs: 02/15/18 23:18 02/15/18 23:18 Attending/Attestation - Attestation I have personally seen and examined this patient.: Yes I have fully participated in the care of the patient.: Yes I have reviewed all pertinent clinical information, including history, physical exam and plan: Yes Notes (Text): 02/16/18 23:31 case seen and d.w staff and resident, concurred with finding and management..
--- NOTE | 2018-02-16 13:06 | CON ---
DATE: ATTENDING PHYSICIAN: Hever Soler MD The patient is in room number 670, bed B. REASON FOR CONSULTATION: Seizures. CHIEF COMPLAINT: The patient was brought into [facility] with history of seizures, been witnessed by his mother and another seizure has been witnessed in the emergency room. From neurological point of view, I was called in to evaluate him for further management. HISTORY OF PRESENT ILLNESS: Mr. Sabas Fitzgerald is a 37-year-old right-handed male, who has been working as a part-time, been having a habit of drinking beers at least 7 to 8 cans per day for more than 20 years, with seizure disorders for the last 2 months. He has not been on any medication for his seizures. He has been in [facility] related to the seizures in the past, presenting with witnessed seizure activities while he was at home. When he was brought into the hospital, another seizure was witnessed in the emergency room. The patient was found to be postictal. No obvious trauma to the head or bowel and bladder incontinence at the scene except bitten tongue on the side of his tongue. PAST MEDICAL HISTORY: Not available, except alcohol use. ALLERGIES: NO KNOWN ALLERGIES TO SHELLFISH. REVIEW OF SYSTEMS: The 12-point system being reviewed as per the chart from neuro, recurrent seizures. PHYSICAL EXAMINATION: VITAL SIGNS: Blood pressure 144/79, mean artery pressure of 100, respiratory rate 16, temperature afebrile. NECK: Supple. No carotid bruits. HEART: S1, S2 regular. CHEST: Fair air entry. EXTREMITIES: No edema in legs. NEUROLOGIC EXAMINATION: Mental status examination: He is awake, alert, oriented to person and place. He knows the year. Speech is low volume on pressure, answers appropriately. No sign of hallucination. No homicidal or suicidal ideation. No sign of depression. Cranial nerve examination: Extraocular movements normal. No end gaze nystagmus. No facial sensory deficit. No facial asymmetry. Hearing is normal. Tongue is midline. Good gag. Motor examination: Outstretched hand with eyes closed, no drift noted. However, significant tremor. No asterixis. He could be able to move all extremities against the gravity. Deep tendon reflexes absent. Plantars are mute. Sensory examination: Responds to pain symmetrically on both sides. Coordination: Finger-nose test, dysmetria noted. WORKUP: CT of the head: Movement artifact contaminated the underlying pathology. EKG: Sinus tachycardia. Blood workup: WBC 5.7, hemoglobin 13.1, hematocrit 38.8, platelets 182. Sodium 135, potassium 3.9, chloride 95, bicarbonate 7, creatinine 0.8, GFR more than 60, glucose 89, calcium 9.3, magnesium 1.6, bilirubin 1.6, AST 136, protein 8.4, globulin 4.1. CONCLUSION: Mr. Sabas Fitzgerald has been admitted with history of recurrent seizures, all related to his alcohol intoxication. The current examination shows a postictal phase with significant bilateral distal sensory motor neuropathy. No sign of psychosis. RECOMMENDATIONS: 1. IV hydration with vitamin B1 supplement. 2. DT precaution. 3. Librium can be given twice a day for now. Continue Keppra as recommended. 4. MRI of the brain at mesial temporal lobe and volumetric analysis of hippocampus. 5. Electroencephalogram. 6. Social service evaluation and alcohol detox should be addressed. 7. The patient will be followed while he is in the hospital. Bradly Trotter MD
--- NOTE | 2018-02-16 16:22 | MRI ---
PROCEDURE: MRI BRAIN WITHOUT CONTRAST HISTORY: attention at mesial temp lobe vol analysis hippo COMPARISON: Unenhanced head CT 02/15/2018. TECHNIQUE: Multiplanar, multisequence MR images of the brain were obtained without intravenous contrast enhancement. FINDINGS: HEMORRHAGE: None apparent. DWI: No evidence of an acute or early subacute infarction. BRAIN PARENCHYMA: There is no mass effect or suspicious extra-axial collection identified. The ventricular sulcal and cisternal spaces are very mildly expanded compatible with diffuse cerebral atrophy. Periventricular white matter signal changes are identified at the cerebrum in a pattern that suggests potential chronic microangiopathy. Corpus callosum appears to be spared. This is a nonspecific finding. Consider potential vasculitis or other vasculopathy as a cause white-matter changes described above though other etiologies are possible. Clinically correlate further. VENTRICLES: Unremarkable. No hydrocephalus. CRANIUM: Unremarkable. ORBITS: Grossly unremarkable. PARANASAL SINUSES/MASTOIDS: Mucosal inflammatory changes are seen at multiple right ethmoid air cells anteriorly as well as left greater than right maxillary sinuses. VASCULAR SYSTEM: Skull base flow voids intact. OTHER FINDINGS: None. IMPRESSION: No evidence of acute or subacute brain infarction, mass effect or cortical edema. Mild diffuse cerebral atrophy identified as well as limited periventricular white-matter change and at the cerebrum. White-matter changes are nonspecific. Clinically correlate further.
--- NOTE | 2018-02-16 17:14 | CP.PCM.HP ---
History of Present Illness - History of Present Illness History of Present Illness: 37 y/o male with longstanding alcohol dependency, DM, HTN, Depression, Pancreatitis presents to the ED for evaluation following witnessed seizure at home. As per mother, patient drinks every day. He occasionally stays with her, and mother notes for the past 24 hours patient has not been drinking alcohol. Patients last ED visit here was 2 days ago. During assessment, patient had a generalized tonic-clonic seizure with postictal confusion, tongue biting, and diffuse diaphoresis. Given Ativan x 2 doses. Patient unable to provide history. No prior seizure history as per mother. Present on Admission - Present on Admission Any Indicators Present on Admission: No Review of Systems - Neurological Neurological: As Per HPI Past Patient History - Infectious Disease Hx of Infectious Diseases: None - Tetanus Immunizations Tetanus Immunization: Unknown - Past Medical History & Family History Past Medical History?: Yes - Past Social History Smoking Status: Light Smoker < 10 Cigarettes Daily - CARDIAC Hx Cardiac Disorders: Yes Hx Hypertension: Yes - PULMONARY Hx Respiratory Disorders: Yes Hx Asthma: Yes - NEUROLOGICAL Hx Neurological Disorder: Yes - HEENT Hx HEENT Problems: No - RENAL Hx Chronic Kidney Disease: No - ENDOCRINE/METABOLIC Hx Endocrine Disorders: No - HEMATOLOGICAL/ONCOLOGICAL Hx Blood Disorders: No - INTEGUMENTARY Hx Dermatological Problems: No - MUSCULOSKELETAL/RHEUMATOLOGICAL Hx Musculoskeletal Disorders: No Hx Falls: No - GASTROINTESTINAL Hx Gastrointestinal Disorders: Yes Hx Gastritis: Yes Hx Pancreatitis: Yes - GENITOURINARY/GYNECOLOGICAL Hx Genitourinary Disorders: No - PSYCHIATRIC Hx Psychophysiologic Disorder: Yes Hx Depression: Yes Hx Substance Use: No - SURGICAL HISTORY Hx Surgeries: No - ANESTHESIA Hx Anesthesia: No Meds Allergies/Adverse Reactions: Allergies Allergy/AdvReac Type Severity Reaction Status Date / Time shellfish derived Allergy Severe ANAPHYLAXIS Verified 02/15/18 22:30 shrimp Allergy Severe ANAPHYLAXIS Verified 02/15/18 22:30 Physical Exam - Constitutional Appears: Well - Head Exam Head Exam: ATRAUMATIC, NORMAL INSPECTION, NORMOCEPHALIC - Eye Exam Eye Exam: EOMI, Normal appearance, PERRL Pupil Exam: NORMAL ACCOMODATION, PERRL - ENT Exam ENT Exam: Mucous Membranes Moist, Normal Exam - Neck Exam Neck exam: Positive for: Normal Inspection - Respiratory Exam Respiratory Exam: Decreased Breath Sounds - Cardiovascular Exam Cardiovascular Exam: REGULAR RHYTHM, +S1, +S2 - GI/Abdominal Exam GI & Abdominal Exam: Diminished Bowel Sounds, Soft - Rectal Exam Rectal Exam: Deferred Results - Vital Signs Recent Vital Signs: Last Vital Signs Temp 98.6 F 02/16/18 17:10 Pulse 74 02/16/18 17:10 Resp 20 02/16/18 17:10 BP 134/88 02/16/18 17:10 Pulse Ox 100 02/16/18 17:10 - Labs Result Diagrams: 02/15/18 23:18 02/15/18 23:18 Labs: Laboratory Results - last 24 hr 02/15/18 02/15/18 02/15/18 22:35 23:18 23:18 WBC 5.7 RBC 4.53 Hgb 13.1 Hct 38.8 MCV 85.7 D MCH 28.8 MCHC 33.7 RDW 16.1 H Plt Count 182 MPV 8.1 Neut % (Auto) 70.9 Lymph % (Auto) 16.8 L Edwards % (Auto) 11.0 H Eos % (Auto) 0.4 Baso % (Auto) 0.9 Neut # (Auto) 4.0 Lymph # (Auto) 0.9 L Edwards # (Auto) 0.6 Eos # (Auto) 0.0 Baso # (Auto) 0.1 ESR Sodium 135 Potassium 3.9 Chloride 95 L Carbon Dioxide 28 Anion Gap 17 BUN 7 L Creatinine 0.8 Est GFR ( Amer) > 60 Est GFR (Non-Af Amer) > 60 POC Glucose (mg/dL) 129 H Random Glucose 142 H Hemoglobin A1c Calcium 9.3 Phosphorus Magnesium 1.6 Total Bilirubin 1.6 H Direct Bilirubin AST 136 H D ALT 56 Alkaline Phosphatase 85 Total Protein 8.4 H Albumin 4.4 Globulin 4.1 H Albumin/Globulin Ratio 1.1 Free T4 TSH 3rd Generation Urine Color Urine Clarity Urine pH Ur Specific [place] Urine Protein Urine Glucose (UA) Urine Ketones Urine Blood Urine Nitrate Urine Bilirubin Urine Urobilinogen Ur Leukocyte Esterase Urine WBC (Auto) Urine RBC (Auto) Urine Opiates Screen Urine Methadone Screen Ur Barbiturates Screen Ur Phencyclidine Scrn Ur Amphetamines Screen U Benzodiazepines Scrn U Oth Cocaine Metabols U Cannabinoids Screen RPR 02/16/18 02/16/18 02/16/18 06:28 08:05 08:05 WBC RBC Hgb Hct MCV MCH MCHC RDW Plt Count MPV Neut % (Auto) Lymph % (Auto) Edwards % (Auto) Eos % (Auto) Baso % (Auto) Neut # (Auto) Lymph # (Auto) Edwards # (Auto) Eos # (Auto) Baso # (Auto) ESR 2 Sodium Potassium Chloride Carbon Dioxide Anion Gap BUN Creatinine Est GFR ( Amer) Est GFR (Non-Af Amer) POC Glucose (mg/dL) 89 Random Glucose Hemoglobin A1c Calcium Phosphorus 3.5 Magnesium 1.9 Total Bilirubin 1.8 H Direct Bilirubin 0.3 AST 112 H ALT 42 Alkaline Phosphatase 84 Total Protein 7.5 Albumin 3.9 Globulin 3.6 Albumin/Globulin Ratio 1.1 Free T4 TSH 3rd Generation Urine Color Urine Clarity Urine pH Ur Specific [place] Urine Protein Urine Glucose (UA) Urine Ketones Urine Blood Urine Nitrate Urine Bilirubin Urine Urobilinogen Ur Leukocyte Esterase Urine WBC (Auto) Urine RBC (Auto) Urine Opiates Screen Urine Methadone Screen Ur Barbiturates Screen Ur Phencyclidine Scrn Ur Amphetamines Screen U Benzodiazepines Scrn U Oth Cocaine Metabols U Cannabinoids Screen RPR 02/16/18 02/16/18 02/16/18 08:05 08:05 08:05 WBC RBC Hgb Hct MCV MCH MCHC RDW Plt Count MPV Neut % (Auto) Lymph % (Auto) Edwards % (Auto) Eos % (Auto) Baso % (Auto) Neut # (Auto) Lymph # (Auto) Edwards # (Auto) Eos # (Auto) Baso # (Auto) ESR Sodium Potassium Chloride Carbon Dioxide Anion Gap BUN Creatinine Est GFR ( Amer) Est GFR (Non-Af Amer) POC Glucose (mg/dL) Random Glucose Hemoglobin A1c 5.7 Calcium Phosphorus Magnesium Total Bilirubin Direct Bilirubin AST ALT Alkaline Phosphatase Total Protein Albumin Globulin Albumin/Globulin Ratio Free T4 0.75 L TSH 3rd Generation 2.84 Urine Color Urine Clarity Urine pH Ur Specific [place] Urine Protein Urine Glucose (UA) Urine Ketones Urine Blood Urine Nitrate Urine Bilirubin Urine Urobilinogen Ur Leukocyte Esterase Urine WBC (Auto) Urine RBC (Auto) Urine Opiates Screen Urine Methadone Screen Ur Barbiturates Screen Ur Phencyclidine Scrn Ur Amphetamines Screen U Benzodiazepines Scrn U Oth Cocaine Metabols U Cannabinoids Screen RPR Nonreactive 02/16/18 02/16/18 02/16/18 08:17 08:17 11:23 WBC RBC Hgb Hct MCV MCH MCHC RDW Plt Count MPV Neut % (Auto) Lymph % (Auto) Edwards % (Auto) Eos % (Auto) Baso % (Auto) Neut # (Auto) Lymph # (Auto) Edwards # (Auto) Eos # (Auto) Baso # (Auto) ESR Sodium Potassium Chloride Carbon Dioxide Anion Gap BUN Creatinine Est GFR ( Amer) Est GFR (Non-Af Amer) POC Glucose (mg/dL) 95 Random Glucose Hemoglobin A1c Calcium Phosphorus Magnesium Total Bilirubin Direct Bilirubin AST ALT Alkaline Phosphatase Total Protein Albumin Globulin Albumin/Globulin Ratio Free T4 TSH 3rd Generation Urine Color Yellow Urine Clarity Clear Urine pH 7.0 Ur Specific [place] 1.009 Urine Protein Negative Urine Glucose (UA) Normal Urine Ketones Negative Urine Blood Negative Urine Nitrate Negative Urine Bilirubin Negative Urine Urobilinogen Normal Ur Leukocyte Esterase Neg Urine WBC (Auto) 1 Urine RBC (Auto) < 1 Urine Opiates Screen Negative Urine Methadone Screen Negative Ur Barbiturates Screen Negative Ur Phencyclidine Scrn Negative Ur Amphetamines Screen Negative U Benzodiazepines Scrn Negative U Oth Cocaine Metabols Negative U Cannabinoids Screen Negative RPR 02/16/18 16:47 WBC RBC Hgb Hct MCV MCH MCHC RDW Plt Count MPV Neut % (Auto) Lymph % (Auto) Edwards % (Auto) Eos % (Auto) Baso % (Auto) Neut # (Auto) Lymph # (Auto) Edwards # (Auto) Eos # (Auto) Baso # (Auto) ESR Sodium Potassium Chloride Carbon Dioxide Anion Gap BUN Creatinine Est GFR ( Amer) Est GFR (Non-Af Amer) POC Glucose (mg/dL) 139 H Random Glucose Hemoglobin A1c Calcium Phosphorus Magnesium Total Bilirubin Direct Bilirubin AST ALT Alkaline Phosphatase Total Protein Albumin Globulin Albumin/Globulin Ratio Free T4 TSH 3rd Generation Urine Color Urine Clarity Urine pH Ur Specific [place] Urine Protein Urine Glucose (UA) Urine Ketones Urine Blood Urine Nitrate Urine Bilirubin Urine Urobilinogen Ur Leukocyte Esterase Urine WBC (Auto) Urine RBC (Auto) Urine Opiates Screen Urine Methadone Screen Ur Barbiturates Screen Ur Phencyclidine Scrn Ur Amphetamines Screen U Benzodiazepines Scrn U Oth Cocaine Metabols U Cannabinoids Screen RPR Assessment & Plan (1) Abdominal pain Status: Acute (2) Abrasion of forehead Status: Acute (3) Alcohol abuse Status: Acute (4) Alcohol abuse Status: Acute (5) Alcohol intoxication Status: Acute (6) Arm pain Status: Acute (7) Cervical strain Status: Acute (8) Chest pain Status: Acute (9) Chest wall contusion Status: Acute (10) Conjunctivitis Status: Acute (11) Drug abuse Status: Acute (12) Fall Status: Acute (13) Hand contusion Status: Acute (14) Hand pain, right Status: Acute (15) Head injury Status: Acute (16) Headache Status: Acute (17) Homeless Status: Acute (18) Hypokalemia Status: Acute (19) Laceration Status: Acute (20) Medical assessment Status: Acute (21) Normal exam Status: Acute (22) Pancreatitis Status: Acute (23) Removal of suture Status: Acute (24) Seizure Status: Acute (25) Visit for wound check Status: Acute - Assessment and Plan (Free Text) Plan: Seizure disorder likely secondary to alcohol use Dr. Trotter - neurology - help appreciated NS at 100 cc/hour Keppra 500mg PO BID Head CT - no bleed or acute changes Chest X ray no active disease f/u MRI f/u labs Alcohol Withdrawal Thiamine 100mg PO daily Banana bag seizure/aspiration precautions monitor for signs of withdrawal Librium 25mg PO Q12 Clonidine 0.1 mg PO Q8 Prophylactic Measures Protonix 40mg PO daily Lovenox 40mg SC daily
[2018-02-17] MEDS: Folic Acid 1 MG, Thiamine 100 MG, Multivitamin (MVI) 10 ML in Sodium Chloride 0.9% 1,00... IV SCH (00:24)
[2018-02-17] MEDS: Albuterol-Ipratrop 3 mg / 0.5 (3 ml) UD INH SCH ×4 (01:26→19:15)
[2018-02-17] MEDS: Dextrose 5%/0.45% NS 1,000 ML IV SCH ×2 (04:03→22:38)
[2018-02-17 08:11] LABS: BASO # 0.1 K/uL (0.0-0.2); BASO % 1.2 % (0.0-2.0); EOS # 0.1 K/uL (0.0-0.7); EOS % 1.6 % (0.0-4.0); HEMOGLOBIN 12.9 g/dL (12.0-18.0); LYMPH # 1.7 K/uL (1.0-4.3); LYMPH % 31.9 % (20.0-40.0); MEAN CELL VOLUME 86.2 fL (80.0-94.0); MEAN CORPUSCULAR HEMOGLOBIN 28.9 pg (27.0-31.0); MEAN CORPUSCULAR HGB CONC 33.5 g/dL (33.0-37.0); MEAN PLATELET VOLUME 8.3 fL (7.2-11.7); MONO # 0.6 K/uL (0.0-0.8); MONO % 10.4 % (0.0-10.0); NEUT % 54.9 % (50.0-75.0); NRBC % 0.2 % (0.0-2.0); RBC 4.46 Mil/uL (4.40-5.90); RED CELL DISTRIBUTION WIDTH 16.2 % (11.5-14.5); WHITE BLOOD COUNT 5.5 K/uL (4.8-10.8)
[2018-02-17 08:26] LABS: ALBUMIN 3.6 g/dL (3.5-5.0); ALT/SGPT 35 U/L (21-72); AST/SGOT 66 U/L (17-59); BLOOD UREA NITROGEN 4 mg/dL (9-20); CALCIUM 8.3 mg/dl (8.6-10.4); GFR AFRICAN-AMERICAN > 60; GFR NON-AFRICAN AMERICAN > 60
[2018-02-17] MEDS ORDERED: Potassium Chloride 20 mEq ER Tab PO ONE ×2 (10:00)
[2018-02-17] MEDS: Enoxaparin 40 mg Syringe SC SCH (10:06)
[2018-02-17] MEDS: Pantoprazole 40 mg EC Tab PO SCH (10:06)
--- NOTE | 2018-02-17 10:11 | CP.PCM.PN ---
<Kalpana Ferrera - Last Filed: 02/17/18 14:08> Subjective - Date & Time of Evaluation Date of Evaluation: 02/17/18 Time of Evaluation: 10:05 - Subjective Subjective: PGY2 progress note for Dr. Soler 37 year old male with past medical history of HTN, ETOH dependence, pancreatitis , tobacco abuse is admitted to ED for evaluation of witnessed seizure by his mother. While in the ED, pt had witnessed tonic-clonic seizure and was given Ativan to control the seizure. Patient's last drink was 2 days ago. He drinks about 6 cans of beer per day. Per patient, he has started having seizures last year. He had about 5-6 seizures. He has not seen neurologist for the seizures and does nto take any medications for the seizures. Pt is seen and examined at bedside. Currently resting comfortably and A&Ox3. Denies having any CP, SOB, abd pain, N/V/D/C, F/C, tremors, agitation or hallucinations. Social: smokes 1/2 ppd for 15 years. Occasionally smokes PCP and Marijuana Objective - Vital Signs/Intake and Output Vital Signs (last 24 hours): Temp Pulse Resp BP Pulse Ox 97.3 F L 57 L 20 149/91 H 100 02/17/18 07:00 02/17/18 07:00 02/17/18 07:00 02/17/18 07:00 02/17/18 07:00 Intake and Output: 02/17/18 02/17/18 06:59 18:59 Intake Total 1294 Output Total 800 Balance 494 - Medications Medications: Current Medications Albuterol/Ipratropium (Duoneb 3 Mg/0.5 Mg (3 Ml) Ud) 3 ml INH RQ6 [facility] Last Admin: 02/17/18 07:29 Dose: 3 ml Chlordiazepoxide (Librium) 25 mg PO Q8 PRN PRN Reason: DELIRIUM TREMORS Last Admin: 02/16/18 05:22 Dose: 25 mg Chlordiazepoxide (Librium) 25 mg PO Q12H [facility] Last Admin: 02/17/18 05:54 Dose: 25 mg Clonidine HCl (Catapres) 0.1 mg PO Q8H [facility] Last Admin: 02/17/18 05:54 Dose: 0.1 mg Enoxaparin Sodium (Lovenox) 40 mg SC DAILY [facility] Last Admin: 02/16/18 09:38 Dose: 40 mg Folic Acid 1 mg/ Thiamine HCl 100 mg/ Multivitamins/Vitamin C 10 ml/ Sodium Chloride 1,011.2 mls @ 42 mls/hr IV .Q24H [facility] Last Admin: 02/17/18 00:24 Dose: 42 mls/hr Dextrose/Sodium Chloride (Dextrose 5%/0.45% Ns 1000 Ml) 1,000 mls @ 100 mls/hr IV .Q10H [facility] Last Admin: 02/17/18 04:03 Dose: Not Given Levetiracetam (Keppra) 500 mg PO BID [facility] Last Admin: 02/16/18 18:30 Dose: 500 mg Pantoprazole Sodium (Protonix Ec Tab) 40 mg PO DAILY [facility] Last Admin: 02/16/18 09:38 Dose: 40 mg Thiamine HCl (Vitamin B1 Tab) 100 mg PO DAILY [facility] Last Admin: 02/16/18 13:28 Dose: 100 mg - Labs Labs: 02/17/18 08:00 02/17/18 08:00 - Constitutional Appears: Non-toxic, No Acute Distress - Head Exam Head Exam: ATRAUMATIC - Eye Exam Eye Exam: EOMI - ENT Exam ENT Exam: Mucous Membranes Moist - Respiratory Exam Respiratory Exam: Clear to Ausculation Bilateral. absent: Rales, Rhonchi, Wheezes - Cardiovascular Exam Cardiovascular Exam: REGULAR RHYTHM, +S1, +S2. absent: Gallop, Rubs, Murmur - GI/Abdominal Exam GI & Abdominal Exam: Soft, Normal Bowel Sounds. absent: Distended, Firm, Guarding, Rigid, Tenderness, Organomegaly - Extremities Exam Extremities Exam: absent: Pedal Edema, Tenderness - Neurological Exam Neurological Exam: Alert, Awake, CN II-XII Intact, Oriented x3 - Psychiatric Exam Psychiatric exam: Normal Affect, Normal Mood - Skin Skin Exam: Dry, Intact, Normal Color, Warm Assessment and Plan - Assessment and Plan (Free Text) Assessment: 37 year old male with past medical history of seizures likely due to ETOH abuse and HTN is admitted for seizures. Seizure - MRI of brain was negative for acute changes but showed mild diffuse cerebral atrophy - Neurology, Dr. Trotter was consulted - Currently on Keppra 500 mg po bid - Librium 25 mg po q12 agustín and ativan 1 mg ivp q4 prn for DTs - EEG completed and results pending - RPR is negative. HIV results pending - Seizure precautions ETOH abuse - Last drink was 2 days ago - Libirum q 12 agustín and ativan q4 prn - Clonidine 0.1 mg po q8 prn for htn - Pt currently receiving banana bag. Will switch to PO multivit, thiamine and folic acid once tolerating po intake HTN - Will start pt on Norvasc 5 mg po qd - Will continue to monitor VS. Prophylaxis - Lovenox - No indication for GI prophylaxis all managements and orders per Dr. Soler <Hillary Soler - Last Filed: 02/22/18 20:06> Objective - Vital Signs/Intake and Output Vital Signs (last 24 hours): Temp Pulse Resp BP Pulse Ox 97.9 F 81 18 116/81 99 02/22/18 15:25 02/22/18 15:25 02/22/18 15:25 02/22/18 15:25 02/22/18 15:25 - Medications Medications: Current Medications Amlodipine Besylate (Norvasc) 10 mg PO DAILY [facility] Last Admin: 02/22/18 09:21 Dose: 10 mg Clonidine HCl (Catapres) 0.1 mg PO Q8H PRN PRN Reason: Systolic Blood Pressure Last Admin: 02/21/18 00:15 Dose: 0.1 mg Enoxaparin Sodium (Lovenox) 40 mg SC DAILY [facility] Last Admin: 02/22/18 09:18 Dose: 40 mg Folic Acid (Folic Acid) 1 mg PO DAILY [facility] Last Admin: 02/22/18 09:18 Dose: 1 mg Levetiracetam (Keppra) 500 mg PO BID [facility] Last Admin: 02/22/18 17:07 Dose: 500 mg Lorazepam (Ativan) 1 mg IVP Q8 PRN PRN Reason: Agitation Multivitamins (Hexavitamin) 5 tab PO DAILY [facility] Last Admin: 02/22/18 09:18 Dose: 5 tab Pantoprazole Sodium (Protonix Ec Tab) 40 mg PO DAILY [facility] Last Admin: 02/22/18 09:18 Dose: 40 mg Thiamine HCl (Vitamin B1 Tab) 100 mg PO DAILY [facility] Last Admin: 02/22/18 09:18 Dose: 100 mg - Labs Labs: 02/22/18 10:59 02/22/18 10:59 Assessment and Plan (1) Abdominal pain Status: Acute (2) Abrasion of forehead Status: Acute (3) Alcohol abuse Status: Acute (4) Alcohol abuse Status: Acute (5) Alcohol intoxication Status: Acute (6) Arm pain Status: Acute (7) Cervical strain Status: Acute (8) Chest pain Status: Acute (9) Chest wall contusion Status: Acute (10) Conjunctivitis Status: Acute (11) Drug abuse Status: Acute (12) Fall Status: Acute (13) Hand contusion Status: Acute (14) Hand pain, right Status: Acute (15) Head injury Status: Acute (16) Headache Status: Acute (17) Homeless Status: Acute (18) Hypokalemia Status: Acute (19) Laceration Status: Acute (20) Medical assessment Status: Acute (21) Normal exam Status: Acute (22) Pancreatitis Status: Acute (23) Removal of suture Status: Acute (24) Seizure Status: Acute (25) Visit for wound check Status: Acute Attending/Attestation - Attestation I have personally seen and examined this patient.: Yes I have fully participated in the care of the patient.: Yes I have reviewed all pertinent clinical information, including history, physical exam and plan: Yes Notes (Text): case seen and d.w staff and resident, concurred with finding and management..
--- NOTE | 2018-02-17 11:05 | PN ---
DATE: 02/17/2018 NEUROLOGICAL PROBLEM: Alcohol-related seizures. PHYSICAL EXAMINATION: VITAL SIGNS: Blood pressure 151/99, with mean artery pressure of 116, respiratory rate 18, temperature 97.8. GENERAL: The patient is awake, alert. He states that he slept good, somewhat better than yesterday. No clinical as well as subjective seizures over a 24-hour period, while he is in the hospital. The examination is unchanged compared with my yesterday's examination. No tremor noted on outstretched hand with eyes closed. The patient did have MRI of the brain, which was reviewed. It showed no mesial temporal sclerosis, significant atrophy with periventricular ischemic changes. LABORATORY DATA: Recent blood work: ESR 2, RPR nonreactive. TSH 2.84. Electroencephalogram being reviewed showed diffuse theta mixed with delta activities, superimposed past beta activities noted. No paroxysmal activities seen during the study. RECOMMENDATIONS: Continue hydration via thiamine supplement with Librium twice a day for now. The patient should be evaluated by social service for detoxification. If the patient is medically stable, the patient can be discharged. Bradly Trotter MD
--- NOTE | 2018-02-17 16:29 | CP.PCM.PN ---
Subjective - Date & Time of Evaluation Date of Evaluation: 02/17/18 Time of Evaluation: 09:30 - Subjective Subjective: clinically same Objective - Vital Signs/Intake and Output Vital Signs (last 24 hours): Temp Pulse Resp BP Pulse Ox 98.7 F 69 20 127/81 100 02/17/18 15:10 02/17/18 15:10 02/17/18 15:10 02/17/18 15:10 02/17/18 15:10 Intake and Output: 02/17/18 02/17/18 06:59 18:59 Intake Total 1294 Output Total 800 Balance 494 - Medications Medications: Current Medications Albuterol/Ipratropium (Duoneb 3 Mg/0.5 Mg (3 Ml) Ud) 3 ml INH RQ6 [facility] Last Admin: 02/17/18 13:06 Dose: 3 ml Amlodipine Besylate (Norvasc) 5 mg PO DAILY [facility] Last Admin: 02/17/18 10:40 Dose: 5 mg Chlordiazepoxide (Librium) 25 mg PO Q12H [facility] Last Admin: 02/17/18 05:54 Dose: 25 mg Clonidine HCl (Catapres) 0.1 mg PO Q8H PRN PRN Reason: Systolic Blood Pressure Enoxaparin Sodium (Lovenox) 40 mg SC DAILY [facility] Last Admin: 02/17/18 10:06 Dose: 40 mg Folic Acid 1 mg/ Thiamine HCl 100 mg/ Multivitamins/Vitamin C 10 ml/ Sodium Chloride 1,011.2 mls @ 42 mls/hr IV .Q24H [facility] Last Admin: 02/17/18 00:24 Dose: 42 mls/hr Dextrose/Sodium Chloride (Dextrose 5%/0.45% Ns 1000 Ml) 1,000 mls @ 100 mls/hr IV .Q10H [facility] Last Admin: 02/17/18 04:03 Dose: Not Given Levetiracetam (Keppra) 500 mg PO BID [facility] Last Admin: 02/17/18 10:06 Dose: 500 mg Lorazepam (Ativan) 1 mg IVP Q4 PRN PRN Reason: Agitation Pantoprazole Sodium (Protonix Ec Tab) 40 mg PO DAILY [facility] Last Admin: 02/17/18 10:06 Dose: 40 mg Thiamine HCl (Vitamin B1 Tab) 100 mg PO DAILY [facility] Last Admin: 02/17/18 10:06 Dose: 100 mg - Labs Labs: 02/17/18 08:00 02/17/18 08:00 - Constitutional Appears: Well - Head Exam Head Exam: ATRAUMATIC, NORMAL INSPECTION, NORMOCEPHALIC - Eye Exam Eye Exam: EOMI, Normal appearance, PERRL Pupil Exam: NORMAL ACCOMODATION, PERRL - ENT Exam ENT Exam: Mucous Membranes Moist, Normal Exam - Neck Exam Neck Exam: Full ROM, Normal Inspection. absent: Lymphadenopathy - Respiratory Exam Respiratory Exam: Decreased Breath Sounds - Cardiovascular Exam Cardiovascular Exam: REGULAR RHYTHM, +S1, +S2 - GI/Abdominal Exam GI & Abdominal Exam: Soft, Diminished Bowel Sounds - Rectal Exam Rectal Exam: Deferred Assessment and Plan (1) Abdominal pain Status: Acute (2) Abrasion of forehead Status: Acute (3) Alcohol abuse Status: Acute (4) Alcohol abuse Status: Acute (5) Alcohol intoxication Status: Acute (6) Arm pain Status: Acute (7) Cervical strain Status: Acute (8) Chest pain Status: Acute (9) Chest wall contusion Status: Acute (10) Conjunctivitis Status: Acute (11) Drug abuse Status: Acute (12) Fall Status: Acute (13) Hand contusion Status: Acute (14) Hand pain, right Status: Acute (15) Head injury Status: Acute (16) Headache Status: Acute (17) Homeless Status: Acute (18) Hypokalemia Status: Acute (19) Laceration Status: Acute (20) Medical assessment Status: Acute (21) Normal exam Status: Acute (22) Pancreatitis Status: Acute (23) Removal of suture Status: Acute (24) Seizure Status: Acute (25) Visit for wound check Status: Acute - Assessment and Plan (Free Text) Plan: 37 year old male with past medical history of seizures likely due to ETOH abuse and HTN is admitted for seizures. Seizure - MRI of brain was negative for acute changes but showed mild diffuse cerebral atrophy - Neurology, Dr. Trotter was consulted - Currently on Keppra 500 mg po bid - Librium 25 mg po q12 agustín and ativan 1 mg ivp q4 prn for DTs - EEG completed and results pending - RPR is negative. HIV results pending - Seizure precautions ETOH abuse - Last drink was 2 days ago - Libirum q 12 agustín and ativan q4 prn - Clonidine 0.1 mg po q8 prn for htn - Pt currently receiving banana bag. Will switch to PO multivit, thiamine and folic acid once tolerating po intake HTN - Will start pt on Norvasc 5 mg po qd - Will continue to monitor VS. Prophylaxis - Lovenox - No indication for GI prophylaxis
[2018-02-18] MEDS: Folic Acid 1 MG, Thiamine 100 MG, Multivitamin (MVI) 10 ML in Sodium Chloride 0.9% 1,00... IV SCH (00:26)
[2018-02-18] MEDS: Albuterol-Ipratrop 3 mg / 0.5 (3 ml) UD INH SCH ×4 (01:51→19:14)
[2018-02-18 08:20] LABS: BASO # 0.1 K/uL (0.0-0.2); BASO % 1.2 % (0.0-2.0); EOS # 0.1 K/uL (0.0-0.7); EOS % 1.5 % (0.0-4.0); HEMOGLOBIN 13.5 g/dL (12.0-18.0); LYMPH % 28.2 % (20.0-40.0); MEAN CELL VOLUME 86.1 fL (80.0-94.0); MEAN CORPUSCULAR HEMOGLOBIN 29.2 pg (27.0-31.0); MEAN CORPUSCULAR HGB CONC 33.9 g/dL (33.0-37.0); MEAN PLATELET VOLUME 8.2 fL (7.2-11.7); MONO # 0.7 K/uL (0.0-0.8); MONO % 10.6 % (0.0-10.0); NEUT # 4.1 K/uL (1.8-7.0); NEUT % 58.5 % (50.0-75.0); NRBC % 0.2 % (0.0-2.0); RBC 4.62 Mil/uL (4.40-5.90)
[2018-02-18 08:36] LABS: ALBUMIN 3.9 g/dL (3.5-5.0); ALT/SGPT 31 U/L (21-72); AST/SGOT 53 U/L (17-59); BLOOD UREA NITROGEN 9 mg/dL (9-20); CALCIUM 8.9 mg/dl (8.6-10.4); GFR AFRICAN-AMERICAN > 60; GFR NON-AFRICAN AMERICAN > 60
--- NOTE | 2018-02-18 08:53 | EEG ---
DATE: 02/16/2018 This is a 16-channel electroencephalogram of awake and drowsy adult. During the study, photic stimulation was performed. Hyperventilation was not performed. The resting electroencephalogram shows diffuse low amplitude delta activities intermittent with 15 to 17 Hz of fast beta activities noted. There are sleep spindle activities with K complexes also noted, consistent with N2 sleep. Some movement artifact and temporal artifact contaminated the background rhythm. The photic stimulation did not evoke driving response noted at 2 to 20 Hz. IMPRESSION: This is an abnormal electroencephalogram because of persistent slowing throughout the record suggestive of bilateral cerebral dysfunction. Most of the study showed N2 sleep. During the study, neither electroencephalographic, paroxysmal activities nor focal slowing noted. Bradly Trotter MD
[2018-02-18] MEDS: Pantoprazole 40 mg EC Tab PO SCH (10:20)
[2018-02-18] MEDS: Enoxaparin 40 mg Syringe SC SCH (10:21)
--- NOTE | 2018-02-18 15:59 | CP.PCM.PN ---
<Olga Portillo DO - Last Filed: 02/18/18 16:05> Subjective - Date & Time of Evaluation Date of Evaluation: 02/18/18 Time of Evaluation: 09:35 - Subjective Subjective: Medicine progress note for Dr. Soler's service Patient seen and examined. Patient resting comfortably in bed. He states he ate breakfast this morning. He denies acute complaints at this time. No seizure activity reported. Objective - Vital Signs/Intake and Output Vital Signs (last 24 hours): Temp Pulse Resp BP Pulse Ox 97.9 F 62 20 130/83 100 02/18/18 07:10 02/18/18 07:10 02/18/18 07:10 02/18/18 07:10 02/18/18 07:10 Intake and Output: 02/18/18 02/18/18 06:59 18:59 Intake Total 336 780 Output Total 800 Balance -464 780 - Medications Medications: Current Medications Albuterol/Ipratropium (Duoneb 3 Mg/0.5 Mg (3 Ml) Ud) 3 ml INH RQ6 [facility] Last Admin: 02/18/18 13:23 Dose: 3 ml Amlodipine Besylate (Norvasc) 5 mg PO DAILY [facility] Last Admin: 02/18/18 10:20 Dose: 5 mg Chlordiazepoxide (Librium) 25 mg PO Q12H [facility] Last Admin: 02/18/18 06:03 Dose: 25 mg Clonidine HCl (Catapres) 0.1 mg PO Q8H PRN PRN Reason: Systolic Blood Pressure Enoxaparin Sodium (Lovenox) 40 mg SC DAILY [facility] Last Admin: 02/18/18 10:21 Dose: 40 mg Folic Acid 1 mg/ Thiamine HCl 100 mg/ Multivitamins/Vitamin C 10 ml/ Sodium Chloride 1,011.2 mls @ 42 mls/hr IV .Q24H [facility] Last Admin: 02/18/18 00:26 Dose: 42 mls/hr Dextrose/Sodium Chloride (Dextrose 5%/0.45% Ns 1000 Ml) 1,000 mls @ 100 mls/hr IV .Q10H [facility] Last Admin: 02/17/18 22:38 Dose: Not Given Levetiracetam (Keppra) 500 mg PO BID [facility] Last Admin: 02/18/18 10:21 Dose: 500 mg Lorazepam (Ativan) 1 mg IVP Q4 PRN PRN Reason: Agitation Last Admin: 02/18/18 01:52 Dose: 1 mg Pantoprazole Sodium (Protonix Ec Tab) 40 mg PO DAILY [facility] Last Admin: 02/18/18 10:20 Dose: 40 mg Thiamine HCl (Vitamin B1 Tab) 100 mg PO DAILY [facility] Last Admin: 02/18/18 10:21 Dose: 100 mg - Labs Labs: 02/18/18 08:06 02/18/18 08:06 - Constitutional Appears: Non-toxic, No Acute Distress, Older Than Stated Age - Head Exam Head Exam: ATRAUMATIC, NORMOCEPHALIC - Eye Exam Eye Exam: EOMI - ENT Exam ENT Exam: Mucous Membranes Moist - Neck Exam Neck Exam: Full ROM. absent: Tenderness - Respiratory Exam Respiratory Exam: Clear to Ausculation Bilateral, NORMAL BREATHING PATTERN - Cardiovascular Exam Cardiovascular Exam: +S1, +S2. absent: Tachycardia - GI/Abdominal Exam GI & Abdominal Exam: Soft, Normal Bowel Sounds. absent: Tenderness - Extremities Exam Extremities Exam: Normal Inspection. absent: Pedal Edema - Neurological Exam Neurological Exam: Alert, Awake Additional comments: slight hand tremor right greater than left - Psychiatric Exam Psychiatric exam: Flat Affect - Skin Skin Exam: Warm Assessment and Plan - Assessment and Plan (Free Text) Assessment: 37 year old male with past medical history of seizures likely due to ETOH abuse and HTN is admitted for seizures. Seizure - MRI of brain was negative for acute changes but showed mild diffuse cerebral atrophy - Neurology, Dr. Trotter consulted - Currently on Keppra 500 mg po bid - Librium 25 mg po q12 agustín and ativan 1 mg ivp q4 prn for DTs - EEG completed- shows bilateral cerebral dysfunction - RPR is negative. HIV RNA not detected - Seizure precautions ETOH abuse - Libirum q 12 agustín and ativan q4 prn - Clonidine 0.1 mg po q8 prn for htn - Pt currently receiving banana bag. - thiamine 100mg PO daily per Dr. Trotter HTN - Will start pt on Norvasc 5 mg po qd - Will continue to monitor VS. Prophylaxis - Lovenox - No indication for GI prophylaxis Management as per Dr. Soler <Hillary Soler S - Last Filed: 02/22/18 20:07> Objective - Vital Signs/Intake and Output Vital Signs (last 24 hours): Temp Pulse Resp BP Pulse Ox 97.9 F 81 18 116/81 99 02/22/18 15:25 02/22/18 15:25 02/22/18 15:25 02/22/18 15:25 02/22/18 15:25 - Medications Medications: Current Medications Amlodipine Besylate (Norvasc) 10 mg PO DAILY [facility] Last Admin: 02/22/18 09:21 Dose: 10 mg Clonidine HCl (Catapres) 0.1 mg PO Q8H PRN PRN Reason: Systolic Blood Pressure Last Admin: 02/21/18 00:15 Dose: 0.1 mg Enoxaparin Sodium (Lovenox) 40 mg SC DAILY [facility] Last Admin: 02/22/18 09:18 Dose: 40 mg Folic Acid (Folic Acid) 1 mg PO DAILY [facility] Last Admin: 02/22/18 09:18 Dose: 1 mg Levetiracetam (Keppra) 500 mg PO BID [facility] Last Admin: 02/22/18 17:07 Dose: 500 mg Lorazepam (Ativan) 1 mg IVP Q8 PRN PRN Reason: Agitation Multivitamins (Hexavitamin) 5 tab PO DAILY [facility] Last Admin: 02/22/18 09:18 Dose: 5 tab Pantoprazole Sodium (Protonix Ec Tab) 40 mg PO DAILY [facility] Last Admin: 02/22/18 09:18 Dose: 40 mg Thiamine HCl (Vitamin B1 Tab) 100 mg PO DAILY [facility] Last Admin: 02/22/18 09:18 Dose: 100 mg - Labs Labs: 02/22/18 10:59 02/22/18 10:59 Assessment and Plan (1) Abdominal pain Status: Acute (2) Abrasion of forehead Status: Acute (3) Alcohol abuse Status: Acute (4) Alcohol abuse Status: Acute (5) Alcohol intoxication Status: Acute (6) Arm pain Status: Acute (7) Cervical strain Status: Acute (8) Chest pain Status: Acute (9) Chest wall contusion Status: Acute (10) Conjunctivitis Status: Acute (11) Drug abuse Status: Acute (12) Fall Status: Acute (13) Hand contusion Status: Acute (14) Hand pain, right Status: Acute (15) Head injury Status: Acute (16) Headache Status: Acute (17) Homeless Status: Acute (18) Hypokalemia Status: Acute (19) Laceration Status: Acute (20) Medical assessment Status: Acute (21) Normal exam Status: Acute (22) Pancreatitis Status: Acute (23) Removal of suture Status: Acute (24) Seizure Status: Acute (25) Visit for wound check Status: Acute Attending/Attestation - Attestation I have personally seen and examined this patient.: Yes I have fully participated in the care of the patient.: Yes I have reviewed all pertinent clinical information, including history, physical exam and plan: Yes Notes (Text): case seen and d.w staff and resident, concurred with finding and management..
--- NOTE | 2018-02-18 16:40 | CP.PCM.PN ---
Subjective - Date & Time of Evaluation Date of Evaluation: 02/18/18 Time of Evaluation: 10:20 - Subjective Subjective: clinically same Objective - Vital Signs/Intake and Output Vital Signs (last 24 hours): Temp Pulse Resp BP Pulse Ox 97.9 F 62 20 130/83 100 02/18/18 07:10 02/18/18 07:10 02/18/18 07:10 02/18/18 07:10 02/18/18 07:10 Intake and Output: 02/18/18 02/18/18 06:59 18:59 Intake Total 336 780 Output Total 800 Balance -464 780 - Medications Medications: Current Medications Albuterol/Ipratropium (Duoneb 3 Mg/0.5 Mg (3 Ml) Ud) 3 ml INH RQ6 [facility] Last Admin: 02/18/18 13:23 Dose: 3 ml Amlodipine Besylate (Norvasc) 5 mg PO DAILY [facility] Last Admin: 02/18/18 10:20 Dose: 5 mg Chlordiazepoxide (Librium) 25 mg PO Q12H [facility] Last Admin: 02/18/18 06:03 Dose: 25 mg Clonidine HCl (Catapres) 0.1 mg PO Q8H PRN PRN Reason: Systolic Blood Pressure Enoxaparin Sodium (Lovenox) 40 mg SC DAILY [facility] Last Admin: 02/18/18 10:21 Dose: 40 mg Folic Acid 1 mg/ Thiamine HCl 100 mg/ Multivitamins/Vitamin C 10 ml/ Sodium Chloride 1,011.2 mls @ 42 mls/hr IV .Q24H [facility] Last Admin: 02/18/18 00:26 Dose: 42 mls/hr Dextrose/Sodium Chloride (Dextrose 5%/0.45% Ns 1000 Ml) 1,000 mls @ 100 mls/hr IV .Q10H [facility] Last Admin: 02/17/18 22:38 Dose: Not Given Levetiracetam (Keppra) 500 mg PO BID [facility] Last Admin: 02/18/18 10:21 Dose: 500 mg Lorazepam (Ativan) 1 mg IVP Q4 PRN PRN Reason: Agitation Last Admin: 02/18/18 01:52 Dose: 1 mg Pantoprazole Sodium (Protonix Ec Tab) 40 mg PO DAILY [facility] Last Admin: 02/18/18 10:20 Dose: 40 mg Thiamine HCl (Vitamin B1 Tab) 100 mg PO DAILY [facility] Last Admin: 02/18/18 10:21 Dose: 100 mg - Labs Labs: 02/18/18 08:06 02/18/18 08:06 - Constitutional Appears: Well - Head Exam Head Exam: ATRAUMATIC, NORMAL INSPECTION, NORMOCEPHALIC - Eye Exam Eye Exam: EOMI, Normal appearance, PERRL Pupil Exam: NORMAL ACCOMODATION, PERRL - ENT Exam ENT Exam: Mucous Membranes Moist, Normal Exam - Neck Exam Neck Exam: Full ROM, Normal Inspection. absent: Lymphadenopathy - Respiratory Exam Respiratory Exam: Decreased Breath Sounds - Cardiovascular Exam Cardiovascular Exam: REGULAR RHYTHM, +S1, +S2 - GI/Abdominal Exam GI & Abdominal Exam: Soft, Diminished Bowel Sounds - Rectal Exam Rectal Exam: Deferred Assessment and Plan (1) Abdominal pain Status: Acute (2) Abrasion of forehead Status: Acute (3) Alcohol abuse Status: Acute (4) Alcohol abuse Status: Acute (5) Alcohol intoxication Status: Acute (6) Arm pain Status: Acute (7) Cervical strain Status: Acute (8) Chest pain Status: Acute (9) Chest wall contusion Status: Acute (10) Conjunctivitis Status: Acute (11) Drug abuse Status: Acute (12) Fall Status: Acute (13) Hand contusion Status: Acute (14) Hand pain, right Status: Acute (15) Head injury Status: Acute (16) Headache Status: Acute (17) Homeless Status: Acute (18) Hypokalemia Status: Acute (19) Laceration Status: Acute (20) Medical assessment Status: Acute (21) Normal exam Status: Acute (22) Pancreatitis Status: Acute (23) Removal of suture Status: Acute (24) Seizure Status: Acute (25) Visit for wound check Status: Acute - Assessment and Plan (Free Text) Plan: 37 year old male with past medical history of seizures likely due to ETOH abuse and HTN is admitted for seizures. Seizure - MRI of brain was negative for acute changes but showed mild diffuse cerebral atrophy - Neurology, Dr. Trotter consulted - Currently on Keppra 500 mg po bid - Librium 25 mg po q12 agustín and ativan 1 mg ivp q4 prn for DTs - EEG completed- shows bilateral cerebral dysfunction - RPR is negative. HIV RNA not detected - Seizure precautions ETOH abuse - Libirum q 12 agustín and ativan q4 prn - Clonidine 0.1 mg po q8 prn for htn - Pt currently receiving banana bag. - thiamine 100mg PO daily per Dr. Trotter HTN - Will start pt on Norvasc 5 mg po qd - Will continue to monitor VS. Prophylaxis - Lovenox - No indication for GI prophylaxis
[2018-02-19] MEDS: Folic Acid 1 MG, Thiamine 100 MG, Multivitamin (MVI) 10 ML in Sodium Chloride 0.9% 1,00... IV SCH ×2 (00:20→03:39)
[2018-02-19] MEDS: Albuterol-Ipratrop 3 mg / 0.5 (3 ml) UD INH SCH ×4 (02:01→19:29)
[2018-02-19] MEDS: Dextrose 5%/0.45% NS 1,000 ML IV SCH (05:34)
[2018-02-19 07:24] LABS: BASO # 0.1 K/uL (0.0-0.2); BASO % 1.5 % (0.0-2.0); EOS # 0.1 K/uL (0.0-0.7); EOS % 1.4 % (0.0-4.0); HEMOGLOBIN 13.2 g/dL (12.0-18.0); LYMPH # 1.9 K/uL (1.0-4.3); LYMPH % 23.8 % (20.0-40.0); MEAN CELL VOLUME 86.3 fL (80.0-94.0); MEAN CORPUSCULAR HEMOGLOBIN 29.2 pg (27.0-31.0); MEAN CORPUSCULAR HGB CONC 33.9 g/dL (33.0-37.0); MEAN PLATELET VOLUME 7.5 fL (7.2-11.7); MONO # 0.9 K/uL (0.0-0.8); MONO % 12.2 % (0.0-10.0); NEUT # 4.8 K/uL (1.8-7.0); NEUT % 61.1 % (50.0-75.0); NRBC % 0.1 % (0.0-2.0); RBC 4.52 Mil/uL (4.40-5.90); WHITE BLOOD COUNT 7.8 K/uL (4.8-10.8)
[2018-02-19 07:39] LABS: ALBUMIN 3.8 g/dL (3.5-5.0); ALT/SGPT 24 U/L (21-72); AST/SGOT 47 U/L (17-59); BLOOD UREA NITROGEN 11 mg/dL (9-20); CALCIUM 8.9 mg/dl (8.6-10.4); GFR AFRICAN-AMERICAN > 60; GFR NON-AFRICAN AMERICAN > 60
[2018-02-19] MEDS: Enoxaparin 40 mg Syringe SC SCH (09:46)
[2018-02-19] MEDS: Pantoprazole 40 mg EC Tab PO SCH (09:46)
[2018-02-19] MEDS ORDERED: Magnesium Oxide 400 mg Tab UD PO ONE (10:07)
[2018-02-19] MEDS ORDERED: Potassium Chloride 20 mEq ER Tab PO ONE (10:08)
--- NOTE | 2018-02-19 14:50 | CP.PCM.PN ---
<Kalpana Ferrera - Last Filed: 02/19/18 14:48> Subjective - Date & Time of Evaluation Date of Evaluation: 02/19/18 Time of Evaluation: 14:48 - Subjective Subjective: PGY2 progress note for Dr. Soler Pt seen and examined at bedside. No acute events overnight. Pt resting comfortably. Denies having any anxiety, tremors, hallucinations. Denies having any CP, SOB, abd pain, N/V/D/C, F/C. Objective - Vital Signs/Intake and Output Vital Signs (last 24 hours): Temp Pulse Resp BP Pulse Ox 98.3 F 82 20 128/89 100 02/19/18 08:11 02/19/18 08:11 02/19/18 08:11 02/19/18 08:11 02/19/18 08:11 Intake and Output: 02/19/18 02/19/18 06:59 18:59 Output Total 1950 Balance -1950 - Medications Medications: Current Medications Albuterol/Ipratropium (Duoneb 3 Mg/0.5 Mg (3 Ml) Ud) 3 ml INH RQ6 [facility] Last Admin: 02/19/18 13:11 Dose: 3 ml Amlodipine Besylate (Norvasc) 5 mg PO DAILY [facility] Last Admin: 02/19/18 09:46 Dose: 5 mg Chlordiazepoxide (Librium) 25 mg PO Q12H [facility] Last Admin: 02/19/18 05:51 Dose: 25 mg Clonidine HCl (Catapres) 0.1 mg PO Q8H PRN PRN Reason: Systolic Blood Pressure Enoxaparin Sodium (Lovenox) 40 mg SC DAILY [facility] Last Admin: 02/19/18 09:46 Dose: 40 mg Folic Acid 1 mg/ Thiamine HCl 100 mg/ Multivitamins/Vitamin C 10 ml/ Sodium Chloride 1,011.2 mls @ 42 mls/hr IV .Q24H [facility] Last Admin: 02/19/18 03:39 Dose: 42 mls/hr Levetiracetam (Keppra) 500 mg PO BID [facility] Last Admin: 02/19/18 09:46 Dose: 500 mg Lorazepam (Ativan) 1 mg IVP Q4 PRN PRN Reason: Agitation Last Admin: 02/18/18 23:54 Dose: 1 mg Pantoprazole Sodium (Protonix Ec Tab) 40 mg PO DAILY [facility] Last Admin: 02/19/18 09:46 Dose: 40 mg Thiamine HCl (Vitamin B1 Tab) 100 mg PO DAILY [facility] Last Admin: 02/19/18 09:46 Dose: 100 mg - Labs Labs: 02/19/18 07:07 02/19/18 07:07 - Constitutional Appears: Non-toxic, No Acute Distress - Head Exam Head Exam: ATRAUMATIC - ENT Exam ENT Exam: Mucous Membranes Moist - Respiratory Exam Respiratory Exam: Clear to Ausculation Bilateral. absent: Accessory Muscle Use , Rales, Rhonchi, Wheezes, Respiratory Distress - Cardiovascular Exam Cardiovascular Exam: REGULAR RHYTHM, +S1, +S2. absent: Gallop, Rubs, Murmur - GI/Abdominal Exam GI & Abdominal Exam: Soft, Normal Bowel Sounds. absent: Distended, Firm, Guarding, Rigid, Tenderness, Organomegaly - Extremities Exam Extremities Exam: absent: Pedal Edema, Tenderness - Neurological Exam Neurological Exam: Alert, Awake, Oriented x3 - Psychiatric Exam Psychiatric exam: Normal Affect, Normal Mood - Skin Skin Exam: Dry, Intact, Normal Color, Warm Assessment and Plan - Assessment and Plan (Free Text) Assessment: 37 year old male with past medical history of seizures likely due to ETOH abuse and HTN is admitted for seizures. Seizure - MRI of brain was negative for acute changes but showed mild diffuse cerebral atrophy - Neurology, Dr. Trotter consulted - Currently on Keppra 500 mg po bid - Librium 25 mg po q12 agustín and ativan 1 mg ivp q6 prn for DTs - EEG completed- shows bilateral cerebral dysfunction - RPR is negative. HIV RNA not detected - Seizure precautions ETOH abuse - Libirum q 12 agustín and ativan q4 prn - Clonidine 0.1 mg po q8 prn for htn - Will discontinue banana bag. Will start pt on po multivitamin, folic acid and thiamine - thiamine 100mg PO daily per Dr. Trotter HTN - Will start pt on Norvasc 5 mg po qd - Will continue to monitor VS. Prophylaxis - Lovenox - No indication for GI prophylaxis Management as per Dr. Soler <Hillary Soler - Last Filed: 02/22/18 20:08> Objective - Vital Signs/Intake and Output Vital Signs (last 24 hours): Temp Pulse Resp BP Pulse Ox 97.9 F 81 18 116/81 99 04/23/18 15:25 02/22/18 15:25 02/22/18 15:25 02/22/18 15:25 02/22/18 15:25 - Medications Medications: Current Medications Amlodipine Besylate (Norvasc) 10 mg PO DAILY [facility] Last Admin: 02/22/18 09:21 Dose: 10 mg Clonidine HCl (Catapres) 0.1 mg PO Q8H PRN PRN Reason: Systolic Blood Pressure Last Admin: 02/21/18 00:15 Dose: 0.1 mg Enoxaparin Sodium (Lovenox) 40 mg SC DAILY [facility] Last Admin: 02/22/18 09:18 Dose: 40 mg Folic Acid (Folic Acid) 1 mg PO DAILY [facility] Last Admin: 02/22/18 09:18 Dose: 1 mg Levetiracetam (Keppra) 500 mg PO BID [facility] Last Admin: 02/22/18 17:07 Dose: 500 mg Lorazepam (Ativan) 1 mg IVP Q8 PRN PRN Reason: Agitation Multivitamins (Hexavitamin) 5 tab PO DAILY [facility] Last Admin: 02/22/18 09:18 Dose: 5 tab Pantoprazole Sodium (Protonix Ec Tab) 40 mg PO DAILY [facility] Last Admin: 02/22/18 09:18 Dose: 40 mg Thiamine HCl (Vitamin B1 Tab) 100 mg PO DAILY [facility] Last Admin: 02/22/18 09:18 Dose: 100 mg - Labs Labs: 02/22/18 10:59 02/22/18 10:59 Assessment and Plan (1) Abdominal pain Status: Acute (2) Abrasion of forehead Status: Acute (3) Alcohol abuse Status: Acute (4) Alcohol abuse Status: Acute (5) Alcohol intoxication Status: Acute (6) Arm pain Status: Acute (7) Cervical strain Status: Acute (8) Chest pain Status: Acute (9) Chest wall contusion Status: Acute (10) Conjunctivitis Status: Acute (11) Drug abuse Status: Acute (12) Fall Status: Acute (13) Hand contusion Status: Acute (14) Hand pain, right Status: Acute (15) Head injury Status: Acute (16) Headache Status: Acute (17) Homeless Status: Acute (18) Hypokalemia Status: Acute (19) Laceration Status: Acute (20) Medical assessment Status: Acute (21) Normal exam Status: Acute (22) Pancreatitis Status: Acute (23) Removal of suture Status: Acute (24) Seizure Status: Acute (25) Visit for wound check Status: Acute Attending/Attestation - Attestation I have personally seen and examined this patient.: Yes I have fully participated in the care of the patient.: Yes I have reviewed all pertinent clinical information, including history, physical exam and plan: Yes Notes (Text): case seen and d.w staff and resident, concurred with finding and management..
--- NOTE | 2018-02-19 15:44 | CP.PCM.PN ---
Subjective - Date & Time of Evaluation Date of Evaluation: 02/19/18 Time of Evaluation: 11:40 - Subjective Subjective: clinically same Objective - Vital Signs/Intake and Output Vital Signs (last 24 hours): Temp Pulse Resp BP Pulse Ox 98.3 F 82 20 128/89 100 02/19/18 08:11 02/19/18 08:11 02/19/18 08:11 02/19/18 08:11 02/19/18 08:11 Intake and Output: 02/19/18 02/19/18 06:59 18:59 Output Total 1950 Balance -1950 - Medications Medications: Current Medications Albuterol/Ipratropium (Duoneb 3 Mg/0.5 Mg (3 Ml) Ud) 3 ml INH RQ6 [facility] Last Admin: 02/19/18 13:11 Dose: 3 ml Amlodipine Besylate (Norvasc) 5 mg PO DAILY [facility] Last Admin: 02/19/18 09:46 Dose: 5 mg Chlordiazepoxide (Librium) 25 mg PO Q12H [facility] Last Admin: 02/19/18 05:51 Dose: 25 mg Clonidine HCl (Catapres) 0.1 mg PO Q8H PRN PRN Reason: Systolic Blood Pressure Enoxaparin Sodium (Lovenox) 40 mg SC DAILY [facility] Last Admin: 02/19/18 09:46 Dose: 40 mg Folic Acid (Folic Acid) 1 mg PO DAILY [facility] Levetiracetam (Keppra) 500 mg PO BID [facility] Last Admin: 02/19/18 09:46 Dose: 500 mg Lorazepam (Ativan) 1 mg IVP Q6 PRN PRN Reason: Agitation Multivitamins/Vitamin C (Multi-Delyn Liquid) 5 ml PO DAILY [facility] Pantoprazole Sodium (Protonix Ec Tab) 40 mg PO DAILY [facility] Last Admin: 02/19/18 09:46 Dose: 40 mg Thiamine HCl (Vitamin B1 Tab) 100 mg PO DAILY [facility] Last Admin: 02/19/18 09:46 Dose: 100 mg - Labs Labs: 02/19/18 07:07 02/19/18 07:07 - Constitutional Appears: Well - Head Exam Head Exam: ATRAUMATIC, NORMAL INSPECTION, NORMOCEPHALIC - Eye Exam Eye Exam: EOMI, Normal appearance, PERRL Pupil Exam: NORMAL ACCOMODATION, PERRL - ENT Exam ENT Exam: Mucous Membranes Moist, Normal Exam - Neck Exam Neck Exam: Full ROM, Normal Inspection. absent: Lymphadenopathy - Respiratory Exam Respiratory Exam: Decreased Breath Sounds - Cardiovascular Exam Cardiovascular Exam: REGULAR RHYTHM, +S1, +S2 - GI/Abdominal Exam GI & Abdominal Exam: Soft, Diminished Bowel Sounds - Rectal Exam Rectal Exam: Deferred Assessment and Plan (1) Abdominal pain Status: Acute (2) Abrasion of forehead Status: Acute (3) Alcohol abuse Status: Acute (4) Alcohol abuse Status: Acute (5) Alcohol intoxication Status: Acute (6) Arm pain Status: Acute (7) Cervical strain Status: Acute (8) Chest pain Status: Acute (9) Chest wall contusion Status: Acute (10) Conjunctivitis Status: Acute (11) Drug abuse Status: Acute (12) Fall Status: Acute (13) Hand contusion Status: Acute (14) Hand pain, right Status: Acute (15) Head injury Status: Acute (16) Headache Status: Acute (17) Homeless Status: Acute (18) Hypokalemia Status: Acute (19) Laceration Status: Acute (20) Medical assessment Status: Acute (21) Normal exam Status: Acute (22) Pancreatitis Status: Acute (23) Removal of suture Status: Acute (24) Seizure Status: Acute (25) Visit for wound check Status: Acute - Assessment and Plan (Free Text) Plan: ssessment: 37 year old male with past medical history of seizures likely due to ETOH abuse and HTN is admitted for seizures. Seizure - MRI of brain was negative for acute changes but showed mild diffuse cerebral atrophy - Neurology, Dr. Trotter consulted - Currently on Keppra 500 mg po bid - Librium 25 mg po q12 agustín and ativan 1 mg ivp q6 prn for DTs - EEG completed- shows bilateral cerebral dysfunction - RPR is negative. HIV RNA not detected - Seizure precautions ETOH abuse - Libirum q 12 agustín and ativan q4 prn - Clonidine 0.1 mg po q8 prn for htn - Will discontinue banana bag. Will start pt on po multivitamin, folic acid and thiamine - thiamine 100mg PO daily per Dr. Trotter HTN - Will start pt on Norvasc 5 mg po qd - Will continue to monitor VS. Prophylaxis - Lovenox - No indication for GI prophylaxis
[2018-02-19] MEDS: Multiple Vitamins Oral Solution PO SCH (21:38)
[2018-02-20] MEDS: Albuterol-Ipratrop 3 mg / 0.5 (3 ml) UD INH SCH ×4 (02:53→20:47)
[2018-02-20] MEDS: Enoxaparin 40 mg Syringe SC SCH (09:09)
[2018-02-20] MEDS: Multiple Vitamins Oral Solution PO SCH (09:10)
[2018-02-20] MEDS: Pantoprazole 40 mg EC Tab PO SCH (09:10)
[2018-02-20] MEDS ORDERED: Potassium Chloride 10 mEq ER Tab PO STA (14:20)
--- NOTE | 2018-02-20 15:17 | CP.PCM.PN ---
Subjective - Date & Time of Evaluation Date of Evaluation: 02/20/18 Time of Evaluation: 09:40 - Subjective Subjective: clinically same Objective - Vital Signs/Intake and Output Vital Signs (last 24 hours): Temp Pulse Resp BP Pulse Ox 97.5 F L 88 20 127/81 100 02/20/18 09:34 02/20/18 09:34 02/20/18 09:34 02/20/18 09:34 02/20/18 09:34 Intake and Output: 02/20/18 02/20/18 06:59 18:59 Intake Total 378 Output Total 1350 Balance -972 - Medications Medications: Current Medications Albuterol/Ipratropium (Duoneb 3 Mg/0.5 Mg (3 Ml) Ud) 3 ml INH RQ6 [facility] Last Admin: 02/20/18 13:25 Dose: 3 ml Amlodipine Besylate (Norvasc) 5 mg PO DAILY [facility] Last Admin: 02/20/18 09:10 Dose: 5 mg Chlordiazepoxide (Librium) 25 mg PO Q12H [facility] Last Admin: 02/20/18 05:48 Dose: 25 mg Clonidine HCl (Catapres) 0.1 mg PO Q8H PRN PRN Reason: Systolic Blood Pressure Last Admin: 02/19/18 23:53 Dose: 0.1 mg Enoxaparin Sodium (Lovenox) 40 mg SC DAILY [facility] Last Admin: 02/20/18 09:09 Dose: 40 mg Folic Acid (Folic Acid) 1 mg PO DAILY [facility] Last Admin: 02/20/18 09:09 Dose: 1 mg Levetiracetam (Keppra) 500 mg PO BID [facility] Last Admin: 02/20/18 09:09 Dose: 500 mg Lorazepam (Ativan) 1 mg IVP Q6 PRN PRN Reason: Agitation Last Admin: 02/19/18 21:38 Dose: 1 mg Multivitamins (Hexavitamin) 5 tab PO DAILY [facility] Pantoprazole Sodium (Protonix Ec Tab) 40 mg PO DAILY [facility] Last Admin: 02/20/18 09:10 Dose: 40 mg Thiamine HCl (Vitamin B1 Tab) 100 mg PO DAILY [facility] Last Admin: 02/20/18 09:10 Dose: 100 mg - Labs Labs: 02/19/18 07:07 02/19/18 07:07 Assessment and Plan (1) Abdominal pain Status: Acute (2) Abrasion of forehead Status: Acute (3) Alcohol abuse Status: Acute (4) Alcohol abuse Status: Acute (5) Alcohol intoxication Status: Acute (6) Arm pain Status: Acute (7) Cervical strain Status: Acute (8) Chest pain Status: Acute (9) Chest wall contusion Status: Acute (10) Conjunctivitis Status: Acute (11) Drug abuse Status: Acute (12) Fall Status: Acute (13) Hand contusion Status: Acute (14) Hand pain, right Status: Acute (15) Head injury Status: Acute (16) Headache Status: Acute (17) Homeless Status: Acute (18) Hypokalemia Status: Acute (19) Laceration Status: Acute (20) Medical assessment Status: Acute (21) Normal exam Status: Acute (22) Pancreatitis Status: Acute (23) Removal of suture Status: Acute (24) Seizure Status: Acute (25) Visit for wound check Status: Acute
[2018-02-21] MEDS: Albuterol-Ipratrop 3 mg / 0.5 (3 ml) UD INH SCH ×2 (01:21→07:23)
[2018-02-21] MEDS: Multiple Vitamins Tab PO SCH (09:30)
[2018-02-21] MEDS: Pantoprazole 40 mg EC Tab PO SCH (09:30)
[2018-02-21] MEDS: Enoxaparin 40 mg Syringe SC SCH (11:03)
--- NOTE | 2018-02-21 13:56 | CP.PCM.PN ---
Subjective - Date & Time of Evaluation Date of Evaluation: 02/21/18 Time of Evaluation: 10:20 - Subjective Subjective: clinically same Objective - Vital Signs/Intake and Output Vital Signs (last 24 hours): Temp Pulse Resp BP Pulse Ox 97.3 F L 78 20 136/81 99 02/21/18 08:31 02/21/18 08:31 02/21/18 08:31 02/21/18 08:31 02/21/18 08:31 Intake and Output: 02/21/18 02/21/18 06:59 18:59 Intake Total 100 Balance 100 - Medications Medications: Current Medications Amlodipine Besylate (Norvasc) 5 mg PO DAILY [facility] Last Admin: 02/21/18 09:30 Dose: 5 mg Chlordiazepoxide (Librium) 25 mg PO Q12H [facility] Last Admin: 02/21/18 05:45 Dose: 25 mg Clonidine HCl (Catapres) 0.1 mg PO Q8H PRN PRN Reason: Systolic Blood Pressure Last Admin: 02/21/18 00:15 Dose: 0.1 mg Enoxaparin Sodium (Lovenox) 40 mg SC DAILY [facility] Last Admin: 02/21/18 11:03 Dose: 40 mg Folic Acid (Folic Acid) 1 mg PO DAILY [facility] Last Admin: 02/21/18 09:30 Dose: 1 mg Levetiracetam (Keppra) 500 mg PO BID [facility] Last Admin: 02/21/18 09:30 Dose: 500 mg Lorazepam (Ativan) 1 mg IVP Q6 PRN PRN Reason: Agitation Last Admin: 02/19/18 21:38 Dose: 1 mg Multivitamins (Hexavitamin) 5 tab PO DAILY [facility] Last Admin: 02/21/18 09:30 Dose: 5 tab Pantoprazole Sodium (Protonix Ec Tab) 40 mg PO DAILY [facility] Last Admin: 02/21/18 09:30 Dose: 40 mg Thiamine HCl (Vitamin B1 Tab) 100 mg PO DAILY [facility] Last Admin: 02/21/18 09:30 Dose: 100 mg - Labs Labs: 02/19/18 07:07 02/19/18 07:07 - Constitutional Appears: Well - Head Exam Head Exam: ATRAUMATIC, NORMAL INSPECTION, NORMOCEPHALIC - Eye Exam Eye Exam: EOMI, Normal appearance, PERRL Pupil Exam: NORMAL ACCOMODATION, PERRL - ENT Exam ENT Exam: Mucous Membranes Moist, Normal Exam - Neck Exam Neck Exam: Full ROM, Normal Inspection. absent: Lymphadenopathy - Respiratory Exam Respiratory Exam: Decreased Breath Sounds - Cardiovascular Exam Cardiovascular Exam: REGULAR RHYTHM, +S1, +S2 - GI/Abdominal Exam GI & Abdominal Exam: Soft, Diminished Bowel Sounds - Rectal Exam Rectal Exam: Deferred Assessment and Plan (1) Abdominal pain Status: Acute (2) Abrasion of forehead Status: Acute (3) Alcohol abuse Status: Acute (4) Alcohol abuse Status: Acute (5) Alcohol intoxication Status: Acute (6) Arm pain Status: Acute (7) Cervical strain Status: Acute (8) Chest pain Status: Acute (9) Chest wall contusion Status: Acute (10) Conjunctivitis Status: Acute (11) Drug abuse Status: Acute (12) Fall Status: Acute (13) Hand contusion Status: Acute (14) Hand pain, right Status: Acute (15) Head injury Status: Acute (16) Headache Status: Acute (17) Homeless Status: Acute (18) Hypokalemia Status: Acute (19) Laceration Status: Acute (20) Medical assessment Status: Acute (21) Normal exam Status: Acute (22) Pancreatitis Status: Acute (23) Removal of suture Status: Acute (24) Seizure Status: Acute (25) Visit for wound check Status: Acute
[2018-02-22] MEDS: Pantoprazole 40 mg EC Tab PO SCH (09:18)
[2018-02-22] MEDS: Multiple Vitamins Tab PO SCH (09:18)
[2018-02-22] MEDS: Enoxaparin 40 mg Syringe SC SCH (09:18)
--- NOTE | 2018-02-22 10:36 | CP.PCM.PN ---
<Kalpana Ferrera - Last Filed: 02/22/18 14:48> Subjective - Date & Time of Evaluation Date of Evaluation: 02/22/18 Time of Evaluation: 10:34 - Subjective Subjective: PGY2 progress note for Dr. Soler Pt seen and examined at bedside. No acute events overnight. Pt resting comfortably. Denies having any SCHMIDT, CP, SOB, abd pain, N/v/D/C, F/C. Pt is able to ambulate around room without difficulty. NO seizure like activity since first day of admission. Objective - Vital Signs/Intake and Output Vital Signs (last 24 hours): Temp Pulse Resp BP Pulse Ox 98.3 F 80 20 128/87 99 02/22/18 08:24 02/22/18 08:24 02/22/18 08:24 02/22/18 08:24 02/22/18 08:24 Intake and Output: 02/22/18 02/22/18 06:59 18:59 Intake Total 100 Balance 100 - Medications Medications: Current Medications Amlodipine Besylate (Norvasc) 10 mg PO DAILY [facility] Last Admin: 02/22/18 09:21 Dose: 10 mg Clonidine HCl (Catapres) 0.1 mg PO Q8H PRN PRN Reason: Systolic Blood Pressure Last Admin: 02/21/18 00:15 Dose: 0.1 mg Enoxaparin Sodium (Lovenox) 40 mg SC DAILY [facility] Last Admin: 02/22/18 09:18 Dose: 40 mg Folic Acid (Folic Acid) 1 mg PO DAILY [facility] Last Admin: 02/22/18 09:18 Dose: 1 mg Levetiracetam (Keppra) 500 mg PO BID [facility] Last Admin: 02/22/18 09:18 Dose: 500 mg Lorazepam (Ativan) 1 mg IVP Q8 PRN PRN Reason: Agitation Multivitamins (Hexavitamin) 5 tab PO DAILY [facility] Last Admin: 02/22/18 09:18 Dose: 5 tab Pantoprazole Sodium (Protonix Ec Tab) 40 mg PO DAILY [facility] Last Admin: 02/22/18 09:18 Dose: 40 mg Thiamine HCl (Vitamin B1 Tab) 100 mg PO DAILY [facility] Last Admin: 02/22/18 09:18 Dose: 100 mg - Labs Labs: 02/19/18 07:07 02/19/18 07:07 - Constitutional Appears: Non-toxic, No Acute Distress - Head Exam Head Exam: ATRAUMATIC - ENT Exam ENT Exam: Mucous Membranes Moist - Respiratory Exam Respiratory Exam: Clear to Ausculation Bilateral, NORMAL BREATHING PATTERN. absent: Accessory Muscle Use, Rales, Rhonchi, Wheezes - Cardiovascular Exam Cardiovascular Exam: REGULAR RHYTHM, +S1, +S2. absent: Gallop, Rubs, Murmur - GI/Abdominal Exam GI & Abdominal Exam: Soft, Normal Bowel Sounds. absent: Distended, Firm, Guarding, Rigid, Tenderness, Organomegaly - Extremities Exam Extremities Exam: absent: Pedal Edema, Tenderness - Neurological Exam Neurological Exam: Alert, Awake, Oriented x3 - Psychiatric Exam Psychiatric exam: Normal Affect, Normal Mood - Skin Skin Exam: Dry, Intact, Normal Color, Warm Assessment and Plan - Assessment and Plan (Free Text) Assessment: 37 year old male with past medical history of seizures likely due to ETOH abuse and HTN is admitted for seizures. Seizure - MRI of brain was negative for acute changes but showed mild diffuse cerebral atrophy - Neurology, Dr. Trotter consulted - Currently on Keppra 500 mg po bid. Per neuro recs, will continue keppra 500 mg po bid after discharge - EEG completed- shows bilateral cerebral dysfunction - RPR is negative. HIV RNA not detected - Seizure precautions ETOH abuse - Po multivitamin, folic acid and thiamine HTN - Norvasc increased to 10 mg po qd - Will continue to monitor VS. Prophylaxis - Lovenox - No indication for GI prophylaxis Management as per Dr. Soler <Hillary Soler - Last Filed: 02/22/18 20:08> Objective - Vital Signs/Intake and Output Vital Signs (last 24 hours): Temp Pulse Resp BP Pulse Ox 97.9 F 81 18 116/81 99 02/22/18 15:25 02/22/18 15:25 02/22/18 15:25 02/22/18 15:25 02/22/18 15:25 - Medications Medications: Current Medications Amlodipine Besylate (Norvasc) 10 mg PO DAILY [facility] Last Admin: 02/22/18 09:21 Dose: 10 mg Clonidine HCl (Catapres) 0.1 mg PO Q8H PRN PRN Reason: Systolic Blood Pressure Last Admin: 02/21/18 00:15 Dose: 0.1 mg Enoxaparin Sodium (Lovenox) 40 mg SC DAILY [facility] Last Admin: 02/22/18 09:18 Dose: 40 mg Folic Acid (Folic Acid) 1 mg PO DAILY [facility] Last Admin: 02/22/18 09:18 Dose: 1 mg Levetiracetam (Keppra) 500 mg PO BID [facility] Last Admin: 02/22/18 17:07 Dose: 500 mg Lorazepam (Ativan) 1 mg IVP Q8 PRN PRN Reason: Agitation Multivitamins (Hexavitamin) 5 tab PO DAILY [facility] Last Admin: 02/22/18 09:18 Dose: 5 tab Pantoprazole Sodium (Protonix Ec Tab) 40 mg PO DAILY [facility] Last Admin: 02/22/18 09:18 Dose: 40 mg Thiamine HCl (Vitamin B1 Tab) 100 mg PO DAILY [facility] Last Admin: 02/22/18 09:18 Dose: 100 mg - Labs Labs: 02/22/18 10:59 02/22/18 10:59 Assessment and Plan (1) Abdominal pain Status: Acute (2) Abrasion of forehead Status: Acute (3) Alcohol abuse Status: Acute (4) Alcohol abuse Status: Acute (5) Alcohol intoxication Status: Acute (6) Arm pain Status: Acute (7) Cervical strain Status: Acute (8) Chest pain Status: Acute (9) Chest wall contusion Status: Acute (10) Conjunctivitis Status: Acute (11) Drug abuse Status: Acute (12) Fall Status: Acute (13) Hand contusion Status: Acute (14) Hand pain, right Status: Acute (15) Head injury Status: Acute (16) Headache Status: Acute (17) Homeless Status: Acute (18) Hypokalemia Status: Acute (19) Laceration Status: Acute (20) Medical assessment Status: Acute (21) Normal exam Status: Acute (22) Pancreatitis Status: Acute (23) Removal of suture Status: Acute (24) Seizure Status: Acute (25) Visit for wound check Status: Acute Attending/Attestation - Attestation I have personally seen and examined this patient.: Yes I have fully participated in the care of the patient.: Yes I have reviewed all pertinent clinical information, including history, physical exam and plan: Yes Notes (Text): case seen and d.w staff and resident, concurred with finding and management..
[2018-02-22 11:03] LABS: BASO % 0.3 % (0.0-2.0); EOS # 0.1 K/uL (0.0-0.7); EOS % 1.8 % (0.0-4.0); HEMOGLOBIN 13.4 g/dL (12.0-18.0); LYMPH # 2.4 K/uL (1.0-4.3); LYMPH % 30.4 % (20.0-40.0); MEAN CELL VOLUME 86.5 fL (80.0-94.0); MEAN CORPUSCULAR HGB CONC 33.5 g/dL (33.0-37.0); MEAN PLATELET VOLUME 7.2 fL (7.2-11.7); MONO # 1.3 K/uL (0.0-0.8); MONO % 16.1 % (0.0-10.0); NEUT % 51.4 % (50.0-75.0); NRBC % 0.2 % (0.0-2.0); RBC 4.61 Mil/uL (4.40-5.90); RED CELL DISTRIBUTION WIDTH 15.8 % (11.5-14.5); WHITE BLOOD COUNT 7.8 K/uL (4.8-10.8)
[2018-02-22 11:21] LABS: ALB/GLOB RATIO 1.1 (1.0-2.1); ALBUMIN 4.6 g/dL (3.5-5.0); ALT/SGPT 54 U/L (21-72); AST/SGOT 61 U/L (17-59); BLOOD UREA NITROGEN 14 mg/dL (9-20); CALCIUM 9.6 mg/dl (8.6-10.4); GFR AFRICAN-AMERICAN > 60; GFR NON-AFRICAN AMERICAN > 60
--- NOTE | 2018-02-22 18:44 | CP.PCM.PN ---
Subjective - Date & Time of Evaluation Date of Evaluation: 02/22/18 Time of Evaluation: 09:40 - Subjective Subjective: clinically same Objective - Vital Signs/Intake and Output Vital Signs (last 24 hours): Temp Pulse Resp BP Pulse Ox 97.9 F 81 18 116/81 99 02/22/18 15:25 02/22/18 15:25 02/22/18 15:25 02/22/18 15:25 02/22/18 15:25 Intake and Output: 02/22/18 02/22/18 06:59 18:59 Intake Total 100 Balance 100 - Medications Medications: Current Medications Amlodipine Besylate (Norvasc) 10 mg PO DAILY [facility] Last Admin: 02/22/18 09:21 Dose: 10 mg Clonidine HCl (Catapres) 0.1 mg PO Q8H PRN PRN Reason: Systolic Blood Pressure Last Admin: 02/21/18 00:15 Dose: 0.1 mg Enoxaparin Sodium (Lovenox) 40 mg SC DAILY [facility] Last Admin: 02/22/18 09:18 Dose: 40 mg Folic Acid (Folic Acid) 1 mg PO DAILY [facility] Last Admin: 02/22/18 09:18 Dose: 1 mg Levetiracetam (Keppra) 500 mg PO BID [facility] Last Admin: 02/22/18 17:07 Dose: 500 mg Lorazepam (Ativan) 1 mg IVP Q8 PRN PRN Reason: Agitation Multivitamins (Hexavitamin) 5 tab PO DAILY [facility] Last Admin: 02/22/18 09:18 Dose: 5 tab Pantoprazole Sodium (Protonix Ec Tab) 40 mg PO DAILY [facility] Last Admin: 02/22/18 09:18 Dose: 40 mg Thiamine HCl (Vitamin B1 Tab) 100 mg PO DAILY [facility] Last Admin: 02/22/18 09:18 Dose: 100 mg - Labs Labs: 02/22/18 10:59 02/22/18 10:59 - Constitutional Appears: Well - Head Exam Head Exam: ATRAUMATIC, NORMAL INSPECTION, NORMOCEPHALIC - Eye Exam Eye Exam: EOMI, Normal appearance, PERRL Pupil Exam: NORMAL ACCOMODATION, PERRL - ENT Exam ENT Exam: Mucous Membranes Moist, Normal Exam - Neck Exam Neck Exam: Full ROM, Normal Inspection. absent: Lymphadenopathy - Respiratory Exam Respiratory Exam: Decreased Breath Sounds - Cardiovascular Exam Cardiovascular Exam: REGULAR RHYTHM, +S1, +S2 - GI/Abdominal Exam GI & Abdominal Exam: Soft, Diminished Bowel Sounds - Rectal Exam Rectal Exam: Deferred Assessment and Plan (1) Abdominal pain Status: Acute (2) Abrasion of forehead Status: Acute (3) Alcohol abuse Status: Acute (4) Alcohol abuse Status: Acute (5) Alcohol intoxication Status: Acute (6) Arm pain Status: Acute (7) Cervical strain Status: Acute (8) Chest pain Status: Acute (9) Chest wall contusion Status: Acute (10) Conjunctivitis Status: Acute (11) Drug abuse Status: Acute (12) Fall Status: Acute (13) Hand contusion Status: Acute (14) Hand pain, right Status: Acute (15) Head injury Status: Acute (16) Headache Status: Acute (17) Homeless Status: Acute (18) Hypokalemia Status: Acute (19) Laceration Status: Acute (20) Medical assessment Status: Acute (21) Normal exam Status: Acute (22) Pancreatitis Status: Acute (23) Removal of suture Status: Acute (24) Seizure Status: Acute (25) Visit for wound check Status: Acute
[2018-02-23 08:12] LABS: BASO % 0.3 % (0.0-2.0); EOS # 0.1 K/uL (0.0-0.7); EOS % 1.6 % (0.0-4.0); HEMOGLOBIN 14.3 g/dL (12.0-18.0); LYMPH % 30.8 % (20.0-40.0); MEAN CELL VOLUME 85.7 fL (80.0-94.0); MEAN CORPUSCULAR HEMOGLOBIN 29.2 pg (27.0-31.0); MEAN CORPUSCULAR HGB CONC 34.1 g/dL (33.0-37.0); NEUT # 3.3 K/uL (1.8-7.0); NEUT % 51.3 % (50.0-75.0); NRBC % 0.2 % (0.0-2.0); RBC 4.91 Mil/uL (4.40-5.90); RED CELL DISTRIBUTION WIDTH 15.7 % (11.5-14.5); WHITE BLOOD COUNT 6.4 K/uL (4.8-10.8)
[2018-02-23 08:26] LABS: ALB/GLOB RATIO 1.1 (1.0-2.1); ALBUMIN 4.7 g/dL (3.5-5.0); ALT/SGPT 55 U/L (21-72); AST/SGOT 55 U/L (17-59); BLOOD UREA NITROGEN 13 mg/dL (9-20); CALCIUM 9.5 mg/dl (8.6-10.4); GFR AFRICAN-AMERICAN > 60; GFR NON-AFRICAN AMERICAN > 60
--- NOTE | 2018-02-23 09:11 | CP.PCM.PN ---
Subjective - Date & Time of Evaluation Date of Evaluation: 02/23/18 Time of Evaluation: 08:00 - Subjective Subjective: PGY2 progress note for Dr. Soler Pt seen and examined at bedside. No acute events overnight. Patient was sitting on the side of his bed reading a newspaper. Denies having any SCHMIDT, CP, SOB, abd pain, N/v/D/C, F/C. Pt is able to ambulate around room without difficulty. NO seizure like activity since first day of admission. Objective - Vital Signs/Intake and Output Vital Signs (last 24 hours): Temp Pulse Resp BP Pulse Ox 98.7 F 73 20 115/84 100 02/23/18 08:26 02/23/18 08:26 02/23/18 08:26 02/23/18 08:26 02/23/18 08:26 Intake and Output: 02/23/18 02/23/18 06:59 18:59 Intake Total 340 Balance 340 - Medications Medications: Current Medications Amlodipine Besylate (Norvasc) 10 mg PO DAILY [facility] Last Admin: 02/22/18 09:21 Dose: 10 mg Clonidine HCl (Catapres) 0.1 mg PO Q8H PRN PRN Reason: Systolic Blood Pressure Last Admin: 02/21/18 00:15 Dose: 0.1 mg Enoxaparin Sodium (Lovenox) 40 mg SC DAILY [facility] Last Admin: 02/22/18 09:18 Dose: 40 mg Folic Acid (Folic Acid) 1 mg PO DAILY [facility] Last Admin: 02/22/18 09:18 Dose: 1 mg Levetiracetam (Keppra) 500 mg PO BID [facility] Last Admin: 02/22/18 17:07 Dose: 500 mg Lorazepam (Ativan) 1 mg IVP Q8 PRN PRN Reason: Agitation Multivitamins (Hexavitamin) 5 tab PO DAILY [facility] Last Admin: 02/22/18 09:18 Dose: 5 tab Pantoprazole Sodium (Protonix Ec Tab) 40 mg PO DAILY [facility] Last Admin: 02/22/18 09:18 Dose: 40 mg Thiamine HCl (Vitamin B1 Tab) 100 mg PO DAILY [facility] Last Admin: 02/22/18 09:18 Dose: 100 mg - Labs Labs: 02/23/18 08:01 02/23/18 08:01 - Constitutional Appears: Non-toxic, No Acute Distress - Head Exam Head Exam: NORMAL INSPECTION - Eye Exam Eye Exam: EOMI Pupil Exam: NORMAL ACCOMODATION - ENT Exam ENT Exam: Mucous Membranes Moist - Respiratory Exam Respiratory Exam: Clear to Ausculation Bilateral, NORMAL BREATHING PATTERN. absent: Respiratory Distress - Cardiovascular Exam Cardiovascular Exam: REGULAR RHYTHM, +S1, +S2 - GI/Abdominal Exam GI & Abdominal Exam: Soft, Normal Bowel Sounds. absent: Distended, Firm, Guarding, Tenderness - Extremities Exam Extremities Exam: Normal Inspection - Back Exam Back Exam: NORMAL INSPECTION. absent: CVA tenderness (L), CVA tenderness (R), paraspinal tenderness - Neurological Exam Neurological Exam: Alert, Awake, CN II-XII Intact, Oriented x3 - Psychiatric Exam Psychiatric exam: Normal Affect, Normal Mood - Skin Skin Exam: Dry, Intact, Normal Color Assessment and Plan - Assessment and Plan (Free Text) Assessment: Assessment: 37 year old male with past medical history of seizures likely due to ETOH abuse and HTN is admitted for seizures. Seizure - MRI of brain was negative for acute changes but showed mild diffuse cerebral atrophy - Neurology, Dr. Trotter consulted - Currently on Keppra 500 mg po bid. Per neuro recs, will continue keppra 500 mg po bid after discharge - EEG completed- shows bilateral cerebral dysfunction - RPR is negative. HIV RNA not detected - Seizure precautions ETOH abuse - Po multivitamin, folic acid and thiamine HTN - Norvasc increased to 10 mg po qd - Will continue to monitor VS. Prophylaxis - Lovenox - No indication for GI prophylaxis Management as per Dr. Soler Patient is stable for discharge home per Dr. Soler Patient is to follow up with primary care doctor upon discharge. Patient is to follow up with neurologist, Dr. Trotter upon discharge. Referral provided. Patient is discharged on the following medications: Norvasc 10 mg po qd #30 tabs , Keppra 500 mg po BID #60 tabs, Folic acid 1mg po qd #30, Multivitamin 1 tab po QD #30, thiamine 100 mg po qd #30. Please return to ED if symptoms worsen.
[2018-02-23] MEDS: Multiple Vitamins Tab PO SCH (10:27)
[2018-02-23] MEDS: Enoxaparin 40 mg Syringe SC SCH (10:28)
[2018-02-23] MEDS: Pantoprazole 40 mg EC Tab PO SCH (10:28)
--- NOTE | 2018-02-23 13:15 | CP.PCM.PN ---
Subjective - Date & Time of Evaluation Date of Evaluation: 02/23/18 Time of Evaluation: 09:20 - Subjective Subjective: clinically same Objective - Vital Signs/Intake and Output Vital Signs (last 24 hours): Temp Pulse Resp BP Pulse Ox 98.7 F 73 20 115/84 100 02/23/18 08:26 02/23/18 08:26 02/23/18 08:26 02/23/18 08:26 02/23/18 08:26 Intake and Output: 02/23/18 02/23/18 06:59 18:59 Intake Total 340 Balance 340 - Medications Medications: Current Medications Amlodipine Besylate (Norvasc) 10 mg PO DAILY [facility] Last Admin: 02/23/18 10:27 Dose: 10 mg Clonidine HCl (Catapres) 0.1 mg PO Q8H PRN PRN Reason: Systolic Blood Pressure Last Admin: 02/21/18 00:15 Dose: 0.1 mg Folic Acid (Folic Acid) 1 mg PO DAILY [facility] Last Admin: 02/23/18 10:27 Dose: 1 mg Levetiracetam (Keppra) 500 mg PO BID [facility] Last Admin: 02/23/18 10:27 Dose: 500 mg Lorazepam (Ativan) 1 mg IVP Q8 PRN PRN Reason: Agitation Multivitamins (Hexavitamin) 5 tab PO DAILY [facility] Last Admin: 02/23/18 10:27 Dose: 5 tab Pantoprazole Sodium (Protonix Ec Tab) 40 mg PO DAILY [facility] Last Admin: 02/23/18 10:28 Dose: 40 mg Thiamine HCl (Vitamin B1 Tab) 100 mg PO DAILY [facility] Last Admin: 02/23/18 10:28 Dose: 100 mg - Labs Labs: 02/23/18 08:01 02/23/18 08:01 - Constitutional Appears: Well - Head Exam Head Exam: ATRAUMATIC, NORMAL INSPECTION, NORMOCEPHALIC - Eye Exam Eye Exam: EOMI, Normal appearance, PERRL Pupil Exam: NORMAL ACCOMODATION, PERRL - ENT Exam ENT Exam: Mucous Membranes Moist, Normal Exam - Neck Exam Neck Exam: Full ROM, Normal Inspection. absent: Lymphadenopathy - Respiratory Exam Respiratory Exam: Decreased Breath Sounds - Cardiovascular Exam Cardiovascular Exam: REGULAR RHYTHM, +S1, +S2 - GI/Abdominal Exam GI & Abdominal Exam: Soft, Diminished Bowel Sounds - Rectal Exam Rectal Exam: Deferred Assessment and Plan (1) Abdominal pain Status: Acute (2) Abrasion of forehead Status: Acute (3) Alcohol abuse Status: Acute (4) Alcohol abuse Status: Acute (5) Alcohol intoxication Status: Acute (6) Arm pain Status: Acute (7) Cervical strain Status: Acute (8) Chest pain Status: Acute (9) Chest wall contusion Status: Acute (10) Conjunctivitis Status: Acute (11) Drug abuse Status: Acute (12) Fall Status: Acute (13) Hand contusion Status: Acute (14) Hand pain, right Status: Acute (15) Head injury Status: Acute (16) Headache Status: Acute (17) Homeless Status: Acute (18) Hypokalemia Status: Acute (19) Laceration Status: Acute (20) Medical assessment Status: Acute (21) Normal exam Status: Acute (22) Pancreatitis Status: Acute (23) Removal of suture Status: Acute (24) Seizure Status: Acute (25) Visit for wound check Status: Acute
[2018-02-23 15:37] VITALS: BP 129/87; PULSE 80; RESP 18; TEMP 98.4; O2SAT 98
== END 2018-02-23 17:12 | disposition home or self-care (01) | DRG 750 ==
LOC: C.ER 22:00 → C.9E 02-16 00:54 → C.6T 02-16 01:16
PROVIDERS: ADMIT Internal Medicine Nephrology; ATTEND Internal Medicine Nephrology
DX: F10.231 Alcohol dependence with withdrawal delirium (principal); G40.509 Epileptic seizures related to external causes, not intractable, without status epilepticus; G62.1 Alcoholic polyneuropathy; E87.6 Hypokalemia; K86.0 Alcohol-induced chronic pancreatitis; I10 Essential (primary) hypertension; F17.210 Nicotine dependence, cigarettes, uncomplicated; E11.9 Type 2 diabetes mellitus without complications; J45.909 Unspecified asthma, uncomplicated; S00.81XA Abrasion of other part of head, initial encounter; S16.1XXA Strain of muscle, fascia and tendon at neck level, initial encounter; S20.219A Contusion of unspecified front wall of thorax, initial encounter; S60.229A Contusion of unspecified hand, initial encounter; H10.9 Unspecified conjunctivitis; Z59.0 Homelessness

== ENCOUNTER 2018-03-04 21:20 | Emergency (ER) | payer OTHER ==
[2018-03-04 21:21] VITALS: BMI 23.0
[2018-03-04 22:21] VITALS: O2SAT 97
--- NOTE | 2018-03-04 22:40 | C.PDOC ---
History Of Present Illness Patient brought in by EMS after being found intoxicated in public. Patient is requesting a place to spend the night. Denies fever or chills. Time Seen by Provider: 03/04/18 22:39 Chief Complaint (Nursing): Substance Abuse History Per: Patient History/Exam Limitations: no limitations Onset/Duration Of Symptoms: Hrs Current Symptoms Are (Timing): Still Present Suicide/Self Injury Attempted (Context): None Modifying Factor(s): Alcohol Severity: None Pain Scale Rating Of: 0 Associated Symptoms: denies: Depression, Suicidal Thoughts Involuntary Hold By: None Recent travel outside of the [place]: No Past Medical History Reviewed: Historical Data, Nursing Documentation, Vital Signs Vital Signs: Last Vital Signs Temp 97.5 F L 03/04/18 22:18 Pulse 61 03/04/18 22:18 Resp 16 03/04/18 22:18 BP 121/76 03/04/18 22:18 Pulse Ox 97 03/04/18 22:51 - Medical History PMH: Asthma, Depression, Diabetes, Gastritis, HTN, Pancreatitis - [facility] Procedures ALCOHOL DETOXIFICATION (05/29/14) INJECT/INFUSE NEC (01/29/15) OTHER GROUP THERAPY (08/12/13) TETANUS TOXOID ADMINIST (07/05/14) Family History: States: No Known Family Hx - Social History Hx Tobacco Use: Yes Hx Alcohol Use: Yes Hx Substance Use: No - Immunization History Hx Tetanus Toxoid Vaccination: Yes (07/05/2014) Hx Influenza Vaccination: No Hx Pneumococcal Vaccination: No Review Of Systems Constitutional: Negative for: Fever, Chills Respiratory: Negative for: Cough Gastrointestinal: Negative for: Nausea, Vomiting, Diarrhea Physical Exam - Physical Exam Appears: Non-toxic Skin: Warm, Dry Head: Normacephalic Oral Mucosa: Moist Chest: Symmetrical, No Tenderness Cardiovascular: Rhythm Regular Respiratory: No Rales, No Rhonchi, No Wheezing Gastrointestinal/Abdominal: Soft, No Tenderness Neurological/Psych: Oriented x3 ED Course And Treatment O2 Sat by Pulse Oximetry: 97 (Room air) Pulse Ox Interpretation: Normal Reevaluation Time: 04:51 Reassessment Condition: Improved Disposition Counseled Patient/Family Regarding: Studies Performed, Diagnosis, Need For Followup - Disposition Referrals: [facility] [Outside] Disposition: HOME/ ROUTINE Disposition Time: 22:39 Condition: FAIR Instructions: Alcohol Abuse and Alcoholism (DC) Forms: [facility] (Latvian) - Clinical Impression Clinical Impression: Alcohol intoxication - Scribe Statement The provider has reviewed the documentation as recorded by the Scribchidi Modi All medical record entries made by the Scribe were at my direction and personally dictated by me. I have reviewed the chart and agree that the record accurately reflects my personal performance of the history, physical exam, medical decision making, and the department course for this patient. I have also personally directed, reviewed, and agree with the discharge instructions and disposition.
[2018-03-05 04:57] VITALS: BP 122/72; PULSE 74; RESP 18; TEMP 97.8
== END 2018-03-05 04:58 | disposition home or self-care (01) ==
LOC: C.ER 21:20
DX: F10.129 Alcohol abuse with intoxication, unspecified (principal); Y90.9 Presence of alcohol in blood, level not specified

== ENCOUNTER 2018-03-07 23:43 | Emergency (ER) | payer OTHER ==
[2018-03-07 23:44] VITALS: BMI 23.0
--- NOTE | 2018-03-08 00:07 | C.PDOC ---
History Of Present Illness Patient presents to the ER with acute ETOH intoxication, requesting a place to spend the night. Denies physical complaints at this time. Time Seen by Provider: 03/08/18 00:06 Chief Complaint (Nursing): Substance Abuse History Per: Patient History/Exam Limitations: no limitations Onset/Duration Of Symptoms: Hrs Current Symptoms Are (Timing): Still Present Suicide/Self Injury Attempted (Context): None Modifying Factor(s): Alcohol Severity: None Pain Scale Rating Of: 0 Associated Symptoms: denies: Depression, Suicidal Thoughts Involuntary Hold By: None Recent travel outside of the [place]: No Past Medical History Reviewed: Historical Data, Nursing Documentation, Vital Signs Vital Signs: Last Vital Signs Temp 98 F 03/07/18 23:53 Pulse 66 03/07/18 23:53 Resp 20 03/07/18 23:53 BP 125/83 03/07/18 23:53 Pulse Ox 100 03/08/18 00:43 - Medical History PMH: Asthma, Depression, Diabetes, Gastritis, HTN, Pancreatitis - [facility] Procedures ALCOHOL DETOXIFICATION (05/29/14) INJECT/INFUSE NEC (01/29/15) OTHER GROUP THERAPY (08/12/13) TETANUS TOXOID ADMINIST (07/05/14) Family History: States: No Known Family Hx - Social History Hx Tobacco Use: Yes Hx Alcohol Use: Yes Hx Substance Use: No - Immunization History Hx Tetanus Toxoid Vaccination: Yes (07/05/2014) Hx Influenza Vaccination: No Hx Pneumococcal Vaccination: No Review Of Systems Constitutional: Negative for: Fever, Chills Gastrointestinal: Negative for: Nausea, Vomiting, Diarrhea Physical Exam - Physical Exam Appears: Non-toxic, No Acute Distress, Other (ETOH on breath, no sign of injury) Skin: Warm, Dry Head: Normacephalic Oral Mucosa: Moist Chest: Symmetrical, No Tenderness Cardiovascular: Rhythm Regular Respiratory: No Rales, No Rhonchi, No Wheezing Gastrointestinal/Abdominal: Soft, No Tenderness Neurological/Psych: Oriented x3 ED Course And Treatment O2 Sat by Pulse Oximetry: 100 (Room air) Pulse Ox Interpretation: Normal Reevaluation Time: 03:56 Reassessment Condition: Improved Disposition Counseled Patient/Family Regarding: Studies Performed, Diagnosis, Need For Followup - Disposition Referrals: [facility] [Outside] Disposition: HOME/ ROUTINE Disposition Time: 00:07 Condition: FAIR Instructions: Alcohol Abuse and Alcoholism (DC) Forms: [facility] (French) - Clinical Impression Clinical Impression: Alcohol intoxication, Alcohol abuse - Scribe Statement The provider has reviewed the documentation as recorded by the Scribe Farhan Modi All medical record entries made by the Scribe were at my direction and personally dictated by me. I have reviewed the chart and agree that the record accurately reflects my personal performance of the history, physical exam, medical decision making, and the department course for this patient. I have also personally directed, reviewed, and agree with the discharge instructions and disposition.
[2018-03-08 05:04] VITALS: BP 118/77; PULSE 74; RESP 16; TEMP 98; O2SAT 96
== END 2018-03-08 05:20 | disposition home or self-care (01) ==
LOC: C.ER 23:43
DX: F10.129 Alcohol abuse with intoxication, unspecified (principal); E11.9 Type 2 diabetes mellitus without complications; I10 Essential (primary) hypertension; Z72.0 Tobacco use

== ENCOUNTER 2018-03-09 23:56 | Emergency (ER) | payer OTHER ==
[2018-03-09 23:56] VITALS: BMI 23.0
[2018-03-10 00:15] VITALS: TEMP 98.4; O2SAT 98
--- NOTE | 2018-03-10 02:09 | C.PDOC ---
History Of Present Illness 38 year old male presents to the emergency department under the influence of alcohol. Patient states he came here to sleep, and states that he has been drinking all day. Chief Complaint (Nursing): Substance Abuse History/Exam Limitations: intoxication Onset/Duration Of Symptoms: Hrs Current Symptoms Are (Timing): Still Present Modifying Factor(s): Alcohol Associated Symptoms: denies: Anger, Anxiety Past Medical History Reviewed: Historical Data, Nursing Documentation, Vital Signs Vital Signs: Last Vital Signs Temp 98.4 F 03/10/18 00:09 Pulse 78 03/10/18 00:09 Resp 18 03/10/18 00:09 BP 136/85 03/10/18 00:09 Pulse Ox 98 03/10/18 02:09 - Medical History PMH: Asthma, Depression, Diabetes, Gastritis, HTN, Pancreatitis Denies: Chronic Kidney Disease Surgical History: No Surg Hx - [facility] Procedures ALCOHOL DETOXIFICATION (05/29/14) INJECT/INFUSE NEC (01/29/15) OTHER GROUP THERAPY (08/12/13) TETANUS TOXOID ADMINIST (07/05/14) Family History: States: Unknown Family Hx - Social History Hx Tobacco Use: Yes Hx Alcohol Use: Yes Hx Substance Use: No - Immunization History Hx Tetanus Toxoid Vaccination: Yes (07/05/2014) Hx Influenza Vaccination: No Hx Pneumococcal Vaccination: No Review Of Systems Review Of Systems: ROS cannot be obtained secondary to pt's inabilty to answer questions. Physical Exam - Physical Exam Appears: Non-toxic, No Acute Distress Oral Mucosa: Other (smell of EtOH on breath) Cardiovascular: Rhythm Regular Respiratory: Normal Breath Sounds Gastrointestinal/Abdominal: Normal Exam, Soft, No Tenderness ED Course And Treatment O2 Sat by Pulse Oximetry: 98 (RA) Pulse Ox Interpretation: Normal Disposition Counseled Patient/Family Regarding: Diagnosis - Disposition Referrals: Non [facility] Provider, [Primary Care Provider] - Disposition: HOME/ ROUTINE Disposition Time: 02:00 Condition: STABLE Instructions: Alcohol Abuse and Alcoholism (DC) Forms: [employer] [facility] (Spanish) - POA Present On Arrival: None - Clinical Impression Clinical Impression: Alcohol abuse - Scribe Statement The provider has reviewed the documentation as recorded by the Scribe (Edilberto Brennan) Provider Attestation: All medical record entries made by the Scribe were at my direction and personally dictated by me. I have reviewed the chart and agree that the record accurately reflects my personal performance of the history, physical exam, medical decision making, and the department course for this patient. I have also personally directed, reviewed, and agree with the discharge instructions and disposition.
[2018-03-10 02:55] VITALS: BP 130/80; PULSE 80; RESP 14
== END 2018-03-10 02:30 | disposition home or self-care (01) ==
LOC: C.ER 23:56 → SUPCPDRO 23:56 → C.ER 03-10 02:30
DX: F10.10 Alcohol abuse, uncomplicated (principal); Y90.9 Presence of alcohol in blood, level not specified

== ENCOUNTER 2018-03-11 03:15 | Emergency (ER) | payer OTHER ==
[2018-03-11 03:16] VITALS: BMI 23.0
--- NOTE | 2018-03-11 04:01 | C.PDOC ---
History Of Present Illness 38 year old male presents to the emergency department under the influence of alcohol. Patient states he is looking for a place to stay. Time Seen by Provider: 03/11/18 03:40 Chief Complaint (Nursing): Substance Abuse History Per: Patient History/Exam Limitations: no limitations Onset/Duration Of Symptoms: Hrs Current Symptoms Are (Timing): Still Present Suicide/Self Injury Attempted (Context): None Modifying Factor(s): Alcohol Past Medical History Reviewed: Historical Data, Nursing Documentation, Vital Signs Vital Signs: Last Vital Signs Temp 98.3 F 03/11/18 03:33 Pulse 83 03/11/18 03:33 Resp 22 03/11/18 03:33 BP 142/83 03/11/18 03:33 Pulse Ox 98 03/11/18 05:07 - Medical History PMH: Asthma, Depression, Diabetes, Gastritis, HTN, Pancreatitis Denies: Chronic Kidney Disease Surgical History: No Surg Hx - [facility] Procedures ALCOHOL DETOXIFICATION (05/29/14) INJECT/INFUSE NEC (01/29/15) OTHER GROUP THERAPY (08/12/13) TETANUS TOXOID ADMINIST (07/05/14) Family History: States: No Known Family Hx - Social History Hx Tobacco Use: Yes Hx Alcohol Use: Yes Hx Substance Use: No - Immunization History Hx Tetanus Toxoid Vaccination: Yes (07/05/2014) Hx Influenza Vaccination: No Hx Pneumococcal Vaccination: No Review Of Systems Neurological: Positive for: Altered Mental Status Physical Exam - Physical Exam Appears: Non-toxic, No Acute Distress Skin: Warm, Dry Head: Atraumatic Eye(s): bilateral: Normal Inspection Oral Mucosa: Moist Neck: Trachea Midline, Supple Chest: Symmetrical Cardiovascular: Rhythm Regular Respiratory: No Rales, No Rhonchi, No Wheezing Gastrointestinal/Abdominal: Soft, No Tenderness, No Guarding, No Rebound Back: Normal Inspection Extremity: Bilateral: Atraumatic Pulses: Left Dorsalis Pedis: Normal, Right Dorsalis Pedis: Normal Gait: Steady ED Course And Treatment O2 Sat by Pulse Oximetry: 98 (RA) Pulse Ox Interpretation: Normal Reevaluation Time: 05:27 Reassessment Condition: Improved Disposition Counseled Patient/Family Regarding: Studies Performed, Diagnosis, Need For Followup - Disposition Referrals: [facility] [Outside] Disposition: HOME/ ROUTINE Disposition Time: 04:02 Condition: FAIR Instructions: Alcohol Abuse and Alcoholism (DC) Forms: [facility] (Arabic) - Clinical Impression Clinical Impression: Alcohol abuse, Alcohol intoxication - Scribe Statement The provider has reviewed the documentation as recorded by the Scribe (Edilberto Brennan) Provider Attestation: All medical record entries made by the Scribe were at my direction and personally dictated by me. I have reviewed the chart and agree that the record accurately reflects my personal performance of the history, physical exam, medical decision making, and the department course for this patient. I have also personally directed, reviewed, and agree with the discharge instructions and disposition.
[2018-03-11 06:08] VITALS: BP 140/80; PULSE 90; RESP 18; TEMP 97.9; O2SAT 97
== END 2018-03-11 06:08 | disposition home or self-care (01) ==
LOC: C.ER 03:15
DX: F10.129 Alcohol abuse with intoxication, unspecified (principal); E11.9 Type 2 diabetes mellitus without complications

== ENCOUNTER 2018-03-15 20:27 | Emergency (ER) | payer OTHER ==
[2018-03-15 20:27] VITALS: BMI 23.0
[2018-03-15 20:40] VITALS: TEMP 97.9
--- NOTE | 2018-03-15 21:38 | C.PDOC ---
History Of Present Illness 38 year old male with long standing Hx of alcohol abuse presents to the ED after being found intoxicated. Patient reports drinking alcohol today and states "almost had a seizure". Patient had no acute complaints at this time. Chief Complaint (Nursing): Substance Abuse History Per: Patient History/Exam Limitations: intoxication Onset/Duration Of Symptoms: Days Current Symptoms Are (Timing): Still Present Modifying Factor(s): Alcohol Associated Symptoms: denies: Depression, Suicidal Thoughts, Suicidal Plan Involuntary Hold By: None Recent travel outside of the [place]: No Additional History Per: Patient Past Medical History Reviewed: Historical Data, Nursing Documentation, Vital Signs Vital Signs: Last Vital Signs Temp 97.9 F 03/15/18 20:37 Pulse 80 03/16/18 02:44 Resp 19 03/16/18 02:44 BP 119/63 03/16/18 02:44 Pulse Ox 95 03/16/18 02:44 - Medical History PMH: Asthma, Depression, Diabetes, Gastritis, HTN, Pancreatitis, Seizures Denies: Chronic Kidney Disease Surgical History: No Surg Hx - [facility] Procedures ALCOHOL DETOXIFICATION (05/29/14) INJECT/INFUSE NEC (01/29/15) OTHER GROUP THERAPY (08/12/13) TETANUS TOXOID ADMINIST (07/05/14) Family History: States: Unknown Family Hx - Social History Hx Tobacco Use: Yes Hx Alcohol Use: Yes Hx Substance Use: No - Immunization History Hx Tetanus Toxoid Vaccination: Yes (07/05/2014) Hx Influenza Vaccination: No Hx Pneumococcal Vaccination: No Review Of Systems Constitutional: Negative for: Fever, Chills Cardiovascular: Negative for: Chest Pain Respiratory: Negative for: Shortness of Breath Gastrointestinal: Negative for: Abdominal Pain Skin: Negative for: Rash Psych: Negative for: Depression, Suicidal ideation Physical Exam - Physical Exam Appears: Non-toxic, Other (Somnolent, AOB ) Skin: Normal Color, Warm, Dry Head: Atraumatic, Normacephalic, Other (flushed face) Eye(s): bilateral: Other (conjuctival injection ) Nose: No Discharge Oral Mucosa: Moist Neck: Normal ROM, Supple Chest: Symmetrical Cardiovascular: Rhythm Regular, No Murmur Respiratory: Normal Breath Sounds, No Rales, No Rhonchi, No Wheezing Gastrointestinal/Abdominal: Soft, No Tenderness, No Guarding, No Rebound Extremity: Normal ROM, No Tenderness, No Swelling Neurological/Psych: Oriented x3, No Normal Speech (slurred due to alcohol abuse) Gait: Steady ED Course And Treatment O2 Sat by Pulse Oximetry: 97 (ON RA) Pulse Ox Interpretation: Normal Medical Decision Making Medical Decision Making: Impression: alcohol abuse Plan: * Frequent neuro checks * D/C when sober Old records reviewed: Patient has 8 visits in the month of March for the same presentation, all related to alcohol abuse. Disposition - Disposition Referrals: Alcoholics Anonymous [Outside] [facility] [Outside] Disposition: HOME/ ROUTINE Disposition Time: 04:15 Condition: GOOD Instructions: Alcohol Abuse and Alcoholism (DC) Forms: [employer] (Persian) Print Language: PERUVIAN - Clinical Impression Clinical Impression: Alcohol abuse - Scribe Statement The provider has reviewed the documentation as recorded by the Scribe Thompson Henderson All medical record entries made by the Scribe were at my direction and personally dictated by me. I have reviewed the chart and agree that the record accurately reflects my personal performance of the history, physical exam, medical decision making, and the department course for this patient. I have also personally directed, reviewed, and agree with the discharge instructions and disposition.
[2018-03-16 02:45] VITALS: BP 119/63; PULSE 80; RESP 19
[2018-03-16 04:16] VITALS: O2SAT 97
== END 2018-03-16 03:30 | disposition home or self-care (01) ==
LOC: C.ER 20:27
DX: F10.10 Alcohol abuse, uncomplicated (principal); E11.9 Type 2 diabetes mellitus without complications

== ENCOUNTER 2018-03-18 23:12 | Emergency (ER) | payer OTHER ==
[2018-03-18 23:13] VITALS: BMI 23.0
--- NOTE | 2018-03-18 23:21 | C.PDOC ---
History Of Present Illness 38 y/o male is brought to the ED by ambulance for evaluation of public alcohol intoxication for an unknown duration. Patient is familiar to this ED and has had many prior visits with similar presentations. Patient admits to drinking earlier today and has no other complaints at this time. Time Seen by Provider: 03/18/18 23:19 History Per: Patient, EMS History/Exam Limitations: intoxication Onset/Duration Of Symptoms: Hrs Current Symptoms Are (Timing): Still Present Suicide/Self Injury Attempted (Context): None Modifying Factor(s): Alcohol Associated Symptoms: denies: Suicidal Thoughts, Suicidal Plan Involuntary Hold By: None Recent travel outside of the [place]: No Additional History Per: Patient, EMS Past Medical History Reviewed: Historical Data, Nursing Documentation, Vital Signs Vital Signs: Last Vital Signs Temp 98 F 03/18/18 23:26 Pulse 80 03/18/18 23:26 Resp 20 03/18/18 23:26 BP 132/78 03/18/18 23:26 Pulse Ox 98 03/18/18 23:26 - Medical History PMH: Asthma, Depression, Diabetes, Gastritis, HTN, Pancreatitis, Seizures Denies: Chronic Kidney Disease Surgical History: No Surg Hx - [facility] Procedures ALCOHOL DETOXIFICATION (05/29/14) INJECT/INFUSE NEC (01/29/15) OTHER GROUP THERAPY (08/12/13) TETANUS TOXOID ADMINIST (07/05/14) Family History: States: Unknown Family Hx - Social History Hx Tobacco Use: Yes Hx Alcohol Use: Yes Hx Substance Use: No - Immunization History Hx Tetanus Toxoid Vaccination: Yes (07/05/2014) Hx Influenza Vaccination: No Hx Pneumococcal Vaccination: No Review Of Systems Psych: Positive for: Other (EtOH intoxication ) Physical Exam - Physical Exam Appears: Non-toxic, No Acute Distress, Other (visibly intoxicated ) Skin: Normal Color, Warm, Dry Head: Atraumatic, Normacephalic Eye(s): bilateral: Normal Inspection Oral Mucosa: Moist, Other (alcohol on breath ) Neck: Supple Chest: Symmetrical, No Deformity, No Tenderness Cardiovascular: Rhythm Regular Respiratory: No Accessory Muscle Use Extremity: Normal ROM Neurological/Psych: Other (arousable to touch and verbal stimuli ) ED Course And Treatment O2 Sat by Pulse Oximetry: 98 (on RA) Pulse Ox Interpretation: Normal Medical Decision Making Medical Decision Making: alcohol abuse, malingering Disposition Doctor Will See Patient In The: Office Counseled Patient/Family Regarding: Studies Performed, Diagnosis - Disposition Referrals: Alcoholics Anonymous [Outside] [place] [facility] [Outside] [facility] [Outside] [facility] [Outside] Disposition: HOME/ ROUTINE Disposition Time: 23:20 Condition: GOOD Additional Instructions: seek nightly Skilled Nursing placement Seek AA Seek outpatient psych evaluation Instructions: Alcohol Abuse and Alcoholism (DC) Forms: [employer] (Djiboutian) - Clinical Impression Clinical Impression: Malingering, Alcohol abuse - Scribe Statement The provider has reviewed the documentation as recorded by the Scribe (Rina Soler) Provider Attestation: All medical record entries made by the Scribe were at my direction and personally dictated by me. I have reviewed the chart and agree that the record accurately reflects my personal performance of the history, physical exam, medical decision making, and the department course for this patient. I have also personally directed, reviewed, and agree with the discharge instructions and disposition.
[2018-03-18 23:30] VITALS: BP 132/78; PULSE 80; RESP 20; TEMP 98; O2SAT 98
== END 2018-03-19 00:06 | disposition home or self-care (01) ==
LOC: C.ER 23:12
DX: F10.129 Alcohol abuse with intoxication, unspecified (principal); Z76.5 Malingerer [conscious simulation]; I10 Essential (primary) hypertension; E11.9 Type 2 diabetes mellitus without complications; Z72.0 Tobacco use

== ENCOUNTER 2018-03-19 23:06 | Emergency (ER) | payer OTHER ==
[2018-03-19 23:07] VITALS: BMI 23.0
--- NOTE | 2018-03-19 23:56 | C.PDOC ---
History Of Present Illness Patient brought in by EMS due to being unresponsive but resonded to Narcan. Isaiasis has frequent ER visit for drug and alcohol abuse.. Time Seen by Provider: 03/19/18 23:38 Chief Complaint (Nursing): Substance Abuse History Per: Patient, EMS History/Exam Limitations: intoxication Onset/Duration Of Symptoms: Hrs Current Symptoms Are (Timing): Better Suicide/Self Injury Attempted (Context): None Modifying Factor(s): Alcohol, Other (PCP) Pain Scale Rating Of: 0 Associated Symptoms: denies: Anxiety, Agitation, Depression, Paranoia, Suicidal Thoughts, Suicidal Plan Involuntary Hold By: None Recent travel outside of the [place]: No Additional History Per: EMS, Prior Records Past Medical History Vital Signs: Last Vital Signs Temp 98.5 F 03/19/18 23:16 Pulse 74 03/20/18 04:00 Resp 14 03/20/18 04:00 BP 129/81 03/19/18 23:16 Pulse Ox 96 03/20/18 04:00 - Medical History PMH: Asthma, Depression, Diabetes, Gastritis, HTN, Pancreatitis, Seizures Denies: Chronic Kidney Disease Other PMH: Psych. disorder, substance abuse Surgical History: No Surg Hx - [facility] Procedures ALCOHOL DETOXIFICATION (05/29/14) INJECT/INFUSE NEC (01/29/15) OTHER GROUP THERAPY (08/12/13) TETANUS TOXOID ADMINIST (07/05/14) Family History: States: Unknown Family Hx - Social History Hx Tobacco Use: Yes Hx Alcohol Use: Yes Hx Substance Use: No - Immunization History Hx Tetanus Toxoid Vaccination: Yes (07/05/2014) Hx Influenza Vaccination: No Hx Pneumococcal Vaccination: No Review Of Systems Constitutional: Negative for: Fever Eyes: Negative for: Pain ENT: Negative for: Ear Pain Cardiovascular: Negative for: Chest Pain, Palpitations Respiratory: Negative for: Cough, Shortness of Breath, Hemoptysis Gastrointestinal: Negative for: Nausea, Vomiting, Abdominal Pain Genitourinary: Negative for: Dysuria Musculoskeletal: Negative for: Neck Pain, Shoulder Pain, Arm Pain Skin: Negative for: Rash Neurological: Negative for: Weakness, Numbness, Incoordination, Change in Speech , Confusion, Seizures, Altered Mental Status Psych: Negative for: Anxiety, Depression, Psychosis, Suicidal ideation, Withdrawal Physical Exam - Physical Exam Appears: Non-toxic, No Acute Distress Skin: Normal Color Eye(s): bilateral: Normal Inspection, PERRL, EOMI Nose: Normal Lips: Normal Appearing Throat: Normal Neck: Normal Cardiovascular: Rhythm Regular, No Edema, No Murmur, No JVD Respiratory: Normal Breath Sounds, No Accessory Muscle Use, No Rales, No Wheezing Gastrointestinal/Abdominal: Normal Exam Back: Normal Inspection Extremity: Normal ROM ED Course And Treatment - Laboratory Results Result Diagrams: 03/19/18 23:58 03/19/18 23:58 O2 Sat by Pulse Oximetry: 97 Disposition - Disposition Disposition Time: 07:00 Condition: STABLE Forms: [facility] (Ukrainian) - Clinical Impression Clinical Impression: Alcohol intoxication
[2018-03-20 00:03] LABS: BASO % 1.2 % (0.0-2.0); EOS % 0.9 % (0.0-4.0); HEMOGLOBIN 13.5 g/dL (12.0-18.0); LYMPH # 2.7 K/uL (1.0-4.3); LYMPH % 75.9 % (20.0-40.0); MEAN CORPUSCULAR HEMOGLOBIN 28.6 pg (27.0-31.0); MEAN CORPUSCULAR HGB CONC 34.1 g/dL (33.0-37.0); MONO # 0.2 K/uL (0.0-0.8); MONO % 6.6 % (0.0-10.0); NEUT # 0.5 K/uL (1.8-7.0); NEUT % 15.4 % (50.0-75.0); NRBC % 0.2 % (0.0-2.0); PLATELET COUNT 98 K/uL (130-400); RBC 4.72 Mil/uL (4.40-5.90); RED CELL DISTRIBUTION WIDTH 15.9 % (11.5-14.5); WHITE BLOOD COUNT 3.5 K/uL (4.8-10.8)
[2018-03-20 00:17] LABS: ALB/GLOB RATIO 1.1 (1.0-2.1); ALBUMIN 4.3 g/dL (3.5-5.0); ALT/SGPT 77 U/L (21-72); AST/SGOT 153 U/L (17-59); BLOOD UREA NITROGEN 10 mg/dL (9-20); CALCIUM 8.9 mg/dl (8.6-10.4); GFR AFRICAN-AMERICAN > 60; GFR NON-AFRICAN AMERICAN > 60
[2018-03-20 00:58] LABS: BASOPHIL 2 % (0-2); EOSINOPHIL 1 % (0-4); LYMPHOCYTE 61 % (20-40); MONOCYTE 6 % (0-10); NEUTROPHIL 19 % (50-75); REACTIVE LYMPHOCYTES 11 % (0-0); TOTAL CELLS COUNTED 100
[2018-03-20 00:59] LABS: ANISOCYTOSIS SLIGHT; PLATELET ESTIMATE DECREASED (NORMAL)
[2018-03-20 08:19] VITALS: BP 122/65; PULSE 81; RESP 18; TEMP 98.3; O2SAT 98
== END 2018-03-20 09:20 | disposition home or self-care (01) ==
LOC: C.ER 23:06
DX: F10.129 Alcohol abuse with intoxication, unspecified (principal); E11.9 Type 2 diabetes mellitus without complications; I10 Essential (primary) hypertension; Z72.0 Tobacco use

== ENCOUNTER 2018-04-23 02:08 | Emergency (ER) | payer MEDICAID, OTHER ==
[2018-04-23 02:08] VITALS: BMI 23.0
--- NOTE | 2018-04-23 02:27 | C.PDOC ---
History Of Present Illness Patient presents to the ER with acute ETOH intoxication, requesting a place to spend the night. Denies physical complaints at this time. Time Seen by Provider: 04/23/18 02:26 Chief Complaint (Nursing): Substance Abuse History Per: Patient History/Exam Limitations: no limitations Onset/Duration Of Symptoms: Hrs Current Symptoms Are (Timing): Still Present Suicide/Self Injury Attempted (Context): None Modifying Factor(s): Alcohol Severity: None Pain Scale Rating Of: 0 Associated Symptoms: denies: Depression, Suicidal Thoughts Involuntary Hold By: None Recent travel outside of the [place]: No Past Medical History Reviewed: Historical Data, Nursing Documentation, Vital Signs Vital Signs: Last Vital Signs Temp 98.5 F 04/23/18 02:18 Pulse 77 04/23/18 02:16 Resp 77 H 04/23/18 02:18 BP 134/93 H 04/23/18 02:18 Pulse Ox 20 L 04/23/18 03:01 - Medical History PMH: Asthma, Depression, Diabetes, Gastritis, HTN, Pancreatitis, Seizures - [facility] Procedures ALCOHOL DETOXIFICATION (05/29/14) INJECT/INFUSE NEC (01/29/15) OTHER GROUP THERAPY (08/12/13) TETANUS TOXOID ADMINIST (07/05/14) Family History: States: No Known Family Hx - Social History Hx Tobacco Use: Yes Hx Alcohol Use: Yes Hx Substance Use: No - Immunization History Hx Tetanus Toxoid Vaccination: Yes (07/05/2014) Hx Influenza Vaccination: No Hx Pneumococcal Vaccination: No Review Of Systems Constitutional: Negative for: Fever, Chills Cardiovascular: Negative for: Chest Pain, Palpitations Respiratory: Negative for: Cough, Shortness of Breath Gastrointestinal: Negative for: Nausea, Vomiting, Abdominal Pain Physical Exam - Physical Exam Appears: Non-toxic, Other (ETOH on breath, no sign of injury) Skin: Warm, Dry Head: Normacephalic Oral Mucosa: Moist Chest: Symmetrical, No Tenderness Cardiovascular: Rhythm Regular Respiratory: No Rales, No Rhonchi, No Wheezing Gastrointestinal/Abdominal: Soft, No Tenderness Neurological/Psych: Oriented x3 ED Course And Treatment O2 Sat by Pulse Oximetry: 98 Pulse Ox Interpretation: Normal Reevaluation Time: 04:35 Reassessment Condition: Improved Disposition Counseled Patient/Family Regarding: Studies Performed, Diagnosis, Need For Followup - Disposition Referrals: [facility] [Outside] Disposition: HOME/ ROUTINE Disposition Time: 02:26 Condition: FAIR Instructions: Alcohol Abuse and Alcoholism (DC) Forms: [facility] (Prydeinig) - Clinical Impression Clinical Impression: Alcohol intoxication, Alcohol abuse - Scribe Statement The provider has reviewed the documentation as recorded by the Scribe Farhan Modi All medical record entries made by the Scribe were at my direction and personally dictated by me. I have reviewed the chart and agree that the record accurately reflects my personal performance of the history, physical exam, medical decision making, and the department course for this patient. I have also personally directed, reviewed, and agree with the discharge instructions and disposition.
[2018-04-23 04:36] VITALS: O2SAT 98
[2018-04-23 05:12] VITALS: BP 131/69; PULSE 72; RESP 20; TEMP 97.1
== END 2018-04-23 05:12 | disposition home or self-care (01) ==
LOC: C.ER 02:08
DX: F10.129 Alcohol abuse with intoxication, unspecified (principal); Y90.9 Presence of alcohol in blood, level not specified

== ENCOUNTER 2018-06-29 16:41 | Emergency (ER) | payer MEDICAID, OTHER ==
[2018-06-29 16:42] VITALS: BMI 23.0
--- NOTE | 2018-06-29 17:06 | C.PDOC ---
History Of Present Illness 38 year old male presents to the emergency department under the influence of alcohol. Patient is unable to provide a history. Time Seen by Provider: 06/29/18 16:51 Chief Complaint (Nursing): Substance Abuse History Per: Patient History/Exam Limitations: no limitations Onset/Duration Of Symptoms: Hrs Current Symptoms Are (Timing): Still Present Suicide/Self Injury Attempted (Context): None Modifying Factor(s): Alcohol Past Medical History Reviewed: Historical Data, Nursing Documentation, Vital Signs Vital Signs: Last Vital Signs Temp 99.2 F 06/29/18 17:07 Pulse 81 06/29/18 17:07 Resp 20 06/29/18 17:07 BP 133/87 06/29/18 17:07 Pulse Ox 96 06/29/18 17:07 - Medical History PMH: Asthma, Depression, Diabetes, Gastritis, HTN, Pancreatitis, Seizures Denies: Chronic Kidney Disease Surgical History: No Surg Hx - [facility] Procedures ALCOHOL DETOXIFICATION (05/29/14) INJECT/INFUSE NEC (01/29/15) OTHER GROUP THERAPY (08/12/13) TETANUS TOXOID ADMINIST (07/05/14) Family History: States: Unknown Family Hx - Social History Hx Tobacco Use: Yes Hx Alcohol Use: Yes Hx Substance Use: No - Immunization History Hx Tetanus Toxoid Vaccination: Yes (07/05/2014) Hx Influenza Vaccination: No Hx Pneumococcal Vaccination: No Review Of Systems Review Of Systems: ROS cannot be obtained secondary to pt's inabilty to answer questions. Physical Exam - Physical Exam Appears: Non-toxic, No Acute Distress Skin: Warm, Dry Head: Atraumatic, Normacephalic Eye(s): bilateral: Normal Inspection Neck: Normal, Supple Chest: Symmetrical, No Tenderness Cardiovascular: Rhythm Regular, No Murmur Respiratory: Normal Breath Sounds, No Rales, No Rhonchi, No Wheezing Gastrointestinal/Abdominal: Normal Exam, Soft, No Tenderness, No Guarding, No Rebound Neurological/Psych: No Oriented x3, No Normal Speech, Other (heavily intoxicated , slurred speech) ED Course And Treatment - Laboratory Results Result Diagrams: 06/29/18 18:18 06/29/18 18:18 Medical Decision Making Medical Decision Makin - patient now more awake. Speaking in full sentence and ax0 x 3. During reevaluation patient complained of abdominal pain. labs ordered. patient consumed sandwich. case s/o to Dr. Garner pending reevaluation and disposition. Disposition Discussed With .: Chase Garner - Disposition Disposition Time: 19:00 Condition: STABLE Forms: [facility] (Botswanan) - Clinical Impression Clinical Impression: Alcohol intoxication - Scribe Statement The provider has reviewed the documentation as recorded by the Scribe (Edilberto Brennan) Provider Attestation: All medical record entries made by the Scribe were at my direction and personally dictated by me. I have reviewed the chart and agree that the record accurately reflects my personal performance of the history, physical exam, medical decision making, and the department course for this patient. I have also personally directed, reviewed, and agree with the discharge instructions and disposition. Physician Patient Turnover Patient Signed Over To: Chase Garner
[2018-06-29 18:21] LABS: BASO % 0.9 % (0.0-2.0); EOS % 0.2 % (0.0-4.0); LYMPH # 2.8 K/uL (1.0-4.3); LYMPH % 76.4 % (20.0-40.0); MEAN CELL VOLUME 85.5 fL (80.0-94.0); MEAN CORPUSCULAR HEMOGLOBIN 28.5 pg (27.0-31.0); MEAN CORPUSCULAR HGB CONC 33.3 g/dL (33.0-37.0); MEAN PLATELET VOLUME 7.4 fL (7.2-11.7); MONO # 0.2 K/uL (0.0-0.8); MONO % 5.9 % (0.0-10.0); NEUT # 0.6 K/uL (1.8-7.0); NEUT % 16.6 % (50.0-75.0); NRBC % 0.1 % (0.0-2.0); PLATELET COUNT 159 K/uL (130-400); RBC 4.58 Mil/uL (4.40-5.90); WHITE BLOOD COUNT 3.6 K/uL (4.8-10.8)
[2018-06-29 18:37] LABS: ALB/GLOB RATIO 1.3 (1.0-2.1); ALBUMIN 4.5 g/dL (3.5-5.0); ALT/SGPT 33 U/L (21-72); AST/SGOT 68 U/L (17-59); BLOOD UREA NITROGEN 8 mg/dL (9-20); CALCIUM 8.8 mg/dl (8.6-10.4); GFR NON-AFRICAN AMERICAN > 60; LIPASE 184 U/L (23-300)
[2018-06-29 18:52] LABS: LYMPHOCYTE 77 % (20-40); MONOCYTE 7 % (0-10); NEUTROPHIL 16 % (50-75); PLATELET ESTIMATE NORMAL (NORMAL); TOTAL CELLS COUNTED 100
[2018-06-29 18:53] LABS: ANISOCYTOSIS SLIGHT
[2018-06-30 05:32] VITALS: BP 130/65; PULSE 86; RESP 20; TEMP 98; O2SAT 98
--- NOTE | 2018-07-01 00:02 | CARD ---
APPROVED REPORT Date of service: 06/29/2018 EKG Measurement Heart [id number] <Conclusion> Normal sinus rhythm Possible Left atrial enlargement Nonspecific T wave abnormality Abnormal ECG
== END 2018-06-30 05:32 | disposition home or self-care (01) ==
LOC: C.ER 16:41
DX: F10.129 Alcohol abuse with intoxication, unspecified (principal); Y90.9 Presence of alcohol in blood, level not specified

== ENCOUNTER 2018-07-14 03:44 | Emergency (ER) | payer MEDICAID ==
[2018-07-14 03:44] VITALS: BMI 23.0
[2018-07-14 03:55] VITALS: RESP 16
[2018-07-14] MEDS ORDERED: Sodium Chloride 0.9% 1,000 ML IV ONE (06:07)
--- NOTE | 2018-07-14 06:11 | C.PDOC ---
History Of Present Illness 38 y/o male with a PMHx of alcohol abuse, pancreatitis, and HTN, presents to the ED complaining of epigastric pain that began tonight. Associated with nausea and vomiting. Patient is a poor historian and appears currently intoxicated. Otherwise patient denies any fever, chills, diarrhea, or bloody stool. Time Seen by Provider: 07/14/18 03:47 Chief Complaint (Nursing): Substance Abuse History Per: Patient History/Exam Limitations: intoxication Onset/Duration Of Symptoms: Hrs Current Symptoms Are (Timing): Still Present Modifying Factor(s): Alcohol Associated Symptoms: denies: Suicidal Thoughts Additional History Per: Prior Records Past Medical History Reviewed: Historical Data, Nursing Documentation, Vital Signs Vital Signs: Last Vital Signs Temp 98.4 F 07/14/18 06:46 Pulse 69 07/14/18 06:46 Resp 16 07/14/18 06:46 BP 97/55 L 07/14/18 06:46 Pulse Ox 94 L 07/14/18 06:46 - Medical History PMH: Asthma, Depression, Diabetes, Gastritis, HTN, Pancreatitis, Seizures Denies: Chronic Kidney Disease - [facility] Procedures ALCOHOL DETOXIFICATION (05/29/14) INJECT/INFUSE NEC (01/29/15) OTHER GROUP THERAPY (08/12/13) TETANUS TOXOID ADMINIST (07/05/14) Family History: States: Unknown Family Hx - Social History Hx Tobacco Use: Yes Hx Alcohol Use: Yes Hx Substance Use: No - Immunization History Hx Tetanus Toxoid Vaccination: Yes (07/05/2014) Hx Influenza Vaccination: No Hx Pneumococcal Vaccination: No Review Of Systems Except As Marked, All Systems Reviewed And Found Negative. Constitutional: Negative for: Fever, Chills Respiratory: Negative for: Shortness of Breath Gastrointestinal: Positive for: Nausea, Vomiting, Abdominal Pain. Negative for : Diarrhea Neurological: Negative for: Dizziness Psych: Positive for: Other (alcohol intoxication) Physical Exam - Physical Exam Appears: Non-toxic, No Acute Distress Skin: Warm, Diaphoretic (mildly) Head: Atraumatic, Normacephalic Eye(s): bilateral: Normal Inspection, PERRL, EOMI Nose: Normal Oral Mucosa: Moist Neck: Normal ROM Chest: Symmetrical Cardiovascular: Rhythm Regular, No Murmur Respiratory: Normal Breath Sounds, No Accessory Muscle Use Gastrointestinal/Abdominal: Soft, Tenderness (to epigastrium), No Distention, No Guarding, No Rebound Back: Normal Inspection, No CVA Tenderness Extremity: Bilateral: Atraumatic, Normal Color And Temperature, Normal ROM Neurological/Psych: Oriented x3, Normal Speech ED Course And Treatment - Laboratory Results Result Diagrams: 07/14/18 06:36 O2 Sat by Pulse Oximetry: 97 (RA) Pulse Ox Interpretation: Normal Medical Decision Making Medical Decision Making: Initial Impression: Abdominal pain, ETOH intoxication Initial Plan: --CMP --Alcohol serum --Lipase --CBC --Chest x-ray --UA --NSS IV fluids --Zofran 4 mg IVP --Fentanyl 50 mcg IVP --Reassessment Disposition Counseled Patient/Family Regarding: Diagnosis - Disposition Disposition: HOSPITALIZED Disposition Time: 06:51 Condition: GUARDED Forms: [facility] (Citizen Of [place]) - Clinical Impression Clinical Impression: Abdominal pain, Pancreatitis - Scribe Statement The provider has reviewed the documentation as recorded by the Aris Sorenson Provider Attestation: All medical record entries made by the Aris were at my direction and personally dictated by me. I have reviewed the chart and agree that the record accurately reflects my personal performance of the history, physical exam, medical decision making, and the department course for this patient. I have also personally directed, reviewed, and agree with the discharge instructions and disposition.
[2018-07-14] MEDS ORDERED: Sodium Chloride 0.9% 1,000 ML ONE (06:40)
[2018-07-14 06:45] LABS: BASO % 0.8 % (0.0-2.0); EOS % 1.1 % (0.0-4.0); HEMOGLOBIN 12.5 g/dL (12.0-18.0); LYMPH # 2.4 K/uL (1.0-4.3); LYMPH % 62.6 % (20.0-40.0); MEAN CELL VOLUME 86.4 fL (80.0-94.0); MEAN CORPUSCULAR HEMOGLOBIN 29.2 pg (27.0-31.0); MEAN CORPUSCULAR HGB CONC 33.8 g/dL (33.0-37.0); MEAN PLATELET VOLUME 7.6 fL (7.2-11.7); MONO # 0.4 K/uL (0.0-0.8); MONO % 9.4 % (0.0-10.0); NEUT % 26.1 % (50.0-75.0); NRBC % 0.1 % (0.0-2.0); RBC 4.29 Mil/uL (4.40-5.90); RED CELL DISTRIBUTION WIDTH 14.9 % (11.5-14.5); WHITE BLOOD COUNT 3.9 K/uL (4.8-10.8)
[2018-07-14 06:59] LABS: ALB/GLOB RATIO 1.3 (1.0-2.1); ALT/SGPT 69 U/L (21-72); AST/SGOT 146 U/L (17-59); BLOOD UREA NITROGEN 7 mg/dL (9-20); CALCIUM 8.6 mg/dl (8.6-10.4); GFR NON-AFRICAN AMERICAN > 60; LIPASE 210 U/L (23-300)
--- NOTE | 2018-07-14 07:38 | RAD ---
Date of service: 07/14/2018 HISTORY: abd pain COMPARISON: Portable chest radiograph 02/15/2018. TECHNIQUE: Chest PA and lateral FINDINGS: LUNGS: No active pulmonary disease. PLEURA: No significant pleural effusion identified. No pneumothorax apparent. CARDIOVASCULAR: Normal. OSSEOUS STRUCTURES: No significant abnormalities. VISUALIZED UPPER ABDOMEN: Normal. OTHER FINDINGS: None. IMPRESSION: No interval acute cardiopulmonary disease appreciated.
[2018-07-14 11:15] VITALS: BP 136/95; PULSE 75; TEMP 98.9; O2SAT 99
== END 2018-07-14 12:06 | disposition home or self-care (01) ==
LOC: C.ER 03:44
DX: K85.90 Acute pancreatitis without necrosis or infection, unspecified (principal); R10.13 Epigastric pain; F10.129 Alcohol abuse with intoxication, unspecified; Y90.8 Blood alcohol level of 240 mg/100 ml or more
CPT/HCPCS: 71046; 80053; 80320; 82948; 83690; 85025; 96374; 96375; 99285; J1885; J2405; J7030

== ENCOUNTER 2018-09-05 20:59 | Emergency (ER) | payer MEDICAID ==
[2018-09-05 20:59] VITALS: BMI 23.0
[2018-09-05 21:10] VITALS: BP 133/84; PULSE 86; RESP 18; TEMP 98; O2SAT 98
--- NOTE | 2018-09-05 21:17 | C.PDOC ---
History Of Present Illness 38 year old male presents to the ED with alcohol intoxication for unknown duration. Patient admits to drinking, states it is cold outside, and is requesting a place to stay for the night. Patient denies any physical complaints at this time. History Per: Patient History/Exam Limitations: intoxication Onset/Duration Of Symptoms: Hrs Current Symptoms Are (Timing): Still Present Suicide/Self Injury Attempted (Context): None Modifying Factor(s): Alcohol Associated Symptoms: denies: Suicidal Thoughts, Suicidal Plan Involuntary Hold By: None Recent travel outside of the [place]: No Additional History Per: Patient Past Medical History Reviewed: Historical Data, Nursing Documentation, Vital Signs Vital Signs: Last Vital Signs Temp 98 F 09/05/18 21:07 Pulse 86 09/05/18 21:07 Resp 18 09/05/18 21:07 BP 133/84 09/05/18 21:07 Pulse Ox 98 09/05/18 21:07 - Medical History PMH: Asthma, Depression, Diabetes, Gastritis, HTN, Pancreatitis, Seizures Denies: Chronic Kidney Disease Surgical History: No Surg Hx - [facility] Procedures ALCOHOL DETOXIFICATION (05/29/14) INJECT/INFUSE NEC (01/29/15) OTHER GROUP THERAPY (08/12/13) TETANUS TOXOID ADMINIST (07/05/14) Family History: States: Unknown Family Hx - Social History Hx Tobacco Use: Yes Hx Alcohol Use: Yes Hx Substance Use: No - Immunization History Hx Tetanus Toxoid Vaccination: Yes (07/05/2014) Hx Influenza Vaccination: No Hx Pneumococcal Vaccination: No Review Of Systems Psych: Positive for: Other (EtOH intoxication ). Negative for: Suicidal ideation Physical Exam - Physical Exam Appears: Non-toxic, No Acute Distress, Other (tall, thin black male ) Skin: Normal Color, Warm, Dry Head: Atraumatic, Normacephalic Eye(s): bilateral: Normal Inspection Oral Mucosa: Moist, Other (alcohol on breath ) Neck: Supple Chest: Symmetrical, No Deformity Cardiovascular: Rhythm Regular Respiratory: No Accessory Muscle Use Gastrointestinal/Abdominal: Soft, No Tenderness, No Guarding, No Rebound Extremity: Normal ROM Neurological/Psych: Normal Speech, Normal Cognition, Other (arousable to touch and verbal stimuli ) Gait: Steady ED Course And Treatment O2 Sat by Pulse Oximetry: 98 (on RA) Pulse Ox Interpretation: Normal Medical Decision Making Medical Decision Making: biba alcohol abuse no acute issues many prior evals for same no new complaints nor injuries Disposition Doctor Will See Patient In The: Office Counseled Patient/Family Regarding: Studies Performed, Diagnosis - Disposition Referrals: Alcoholics Anonymous [Outside] [facility] [Outside] [facility] [Outside] [facility] [Outside] [facility] [Outside] Non [facility] Provider, [Primary Care Provider] - Disposition: HOME/ ROUTINE Disposition Time: 21:17 Condition: GOOD Instructions: Alcohol Abuse and Alcoholism (DC) Forms: [employer] (Indian) - Clinical Impression Clinical Impression: Alcohol abuse - Scribe Statement The provider has reviewed the documentation as recorded by the Scribe (Rina Soler) Provider Attestation: All medical record entries made by the Scribe were at my direction and personally dictated by me. I have reviewed the chart and agree that the record accurately reflects my personal performance of the history, physical exam, medical decision making, and the department course for this patient. I have also personally directed, reviewed, and agree with the discharge instructions and disposition.
== END 2018-09-05 21:27 | disposition home or self-care (01) ==
LOC: SUPCPDRO 20:59 → C.ER 20:59
DX: F10.129 Alcohol abuse with intoxication, unspecified (principal); Y90.9 Presence of alcohol in blood, level not specified

== ENCOUNTER 2018-11-09 16:19 | Emergency (ER) | payer MEDICAID ==
[2018-11-09 17:03] VITALS: BMI 21.4
[2018-11-09] MEDS ORDERED: Sodium Chloride 0.9% 1,000 ML IV ONE ×2 (17:18→18:44)
[2018-11-09 17:57] LABS: BASO % 0.8 % (0.0-2.0); EOS % 0.2 % (0.0-4.0); HEMOGLOBIN 14.1 g/dL (12.0-18.0); LYMPH # 0.9 K/uL (1.0-4.3); LYMPH % 23.2 % (20.0-40.0); MEAN CELL VOLUME 86.1 fL (80.0-94.0); MEAN CORPUSCULAR HGB CONC 33.8 g/dL (33.0-37.0); MEAN PLATELET VOLUME 8.1 fL (7.2-11.7); MONO # 0.5 K/uL (0.0-0.8); MONO % 11.6 % (0.0-10.0); NEUT # 2.6 K/uL (1.8-7.0); NEUT % 64.2 % (50.0-75.0); NRBC % 0.1 % (0.0-2.0); RBC 4.85 Mil/uL (4.40-5.90); RED CELL DISTRIBUTION WIDTH 15.6 % (11.5-14.5)
[2018-11-09 17:58] VITALS: RESP 18; O2SAT 95
--- NOTE | 2018-11-09 18:24 | C.PDOC ---
History Of Present Illness 38 y/o male brought to ER by EMS for evaluation of witnessed seizure earlier today. Patient states that he had seizure which was witnessed by bystanders. Patient reports that he has history of ETOH use. He drank 4 beers yesterday, he did not drink today.Denies having CP, SOB, palpitations, headache, and dizziness. Time Seen by Provider: 11/09/18 16:44 Chief Complaint (Nursing): Medical Clearance History Per: Patient History/Exam Limitations: no limitations Past Medical History Reviewed: Historical Data, Nursing Documentation, Vital Signs Vital Signs: Last Vital Signs Temp 98.5 F 11/09/18 16:52 Pulse 71 11/09/18 17:57 Resp 18 11/09/18 17:57 BP 151/99 H 11/09/18 17:57 Pulse Ox 95 11/09/18 17:57 - Medical History PMH: Asthma, Depression, Diabetes, Gastritis, HTN, Pancreatitis, Seizures Denies: Chronic Kidney Disease Surgical History: No Surg Hx - [facility] Procedures ALCOHOL DETOXIFICATION (05/29/14) INJECT/INFUSE NEC (01/29/15) OTHER GROUP THERAPY (08/12/13) TETANUS TOXOID ADMINIST (07/05/14) Family History: States: No Known Family Hx - Social History Hx Tobacco Use: Yes Hx Alcohol Use: Yes Hx Substance Use: No - Immunization History Hx Tetanus Toxoid Vaccination: Yes (07/05/2014) Hx Influenza Vaccination: No Hx Pneumococcal Vaccination: No Review Of Systems Except As Marked, All Systems Reviewed And Found Negative. Constitutional: Negative for: Fever, Chills Cardiovascular: Negative for: Chest Pain Respiratory: Negative for: Shortness of Breath Neurological: Positive for: Seizures. Negative for: Headache, Dizziness Physical Exam - Physical Exam Appears: Other (comfortable, mildly tremulous) Skin: Normal Color, Warm, Dry Head: Atraumatic, Normacephalic Eye(s): bilateral: Normal Inspection Nose: Normal Oral Mucosa: Moist Neck: Supple Chest: Symmetrical Cardiovascular: Rhythm Regular Respiratory: Normal Breath Sounds, No Rales, No Rhonchi, No Wheezing Gastrointestinal/Abdominal: Soft, No Tenderness, No Guarding, No Rebound Neurological/Psych: Oriented x3, Normal Speech ED Course And Treatment - Laboratory Results Result Diagrams: 11/09/18 17:54 11/09/18 17:54 O2 Sat by Pulse Oximetry: 95 (RA) Pulse Ox Interpretation: Normal Progress Note: Labs ordered. Patient treated with Librium PO and IV Fluids. Disposition Counseled Patient/Family Regarding: Studies Performed, Diagnosis, Need For Followup, Rx Given - Disposition Referrals: [facility] [Outside] Disposition: HOME/ ROUTINE Disposition Time: 19:00 Condition: STABLE Additional Instructions: FOLLOW UP WITH YOUR DOCTOR/CLINIC IN 1-2 DAYS USE MEDICATION NEEDED RETURN TO ER IF SYMPTOMS WORSEN Prescriptions: Famotidine [Pepcid] 20 mg PO BID PRN #15 tab PRN Reason: abdominal levETIRAcetam [Keppra] 500 mg PO BID #60 tab Ondansetron ODT [Zofran ODT] 1 odt PO BID PRN #15 odt PRN Reason: Nausea/Vomiting Instructions: Seizures, Adult (DC), Alcohol Abuse and Alcoholism (DC) Forms: [email or web address] (Kinyarwanda) Print Language: HONDURAN - Clinical Impression Clinical Impression: Seizure, Alcohol dependence - Scribe Statement The provider has reviewed the documentation as recorded by the Aris Chavira Provider Attestation: All medical record entries made by the Scribe were at my direction and personally dictated by me. I have reviewed the chart and agree that the record accurately reflects my personal performance of the history, physical exam, medical decision making, and the department course for this patient. I have also personally directed, reviewed, and agree with the discharge instructions and disposition.
[2018-11-09 18:42] LABS: ALB/GLOB RATIO 1.3 (1.0-2.1); ALBUMIN 4.7 g/dL (3.5-5.0); ALT/SGPT 92 U/L (21-72); AST/SGOT 155 U/L (17-59); BLOOD UREA NITROGEN 8 mg/dL (9-20); CALCIUM 9.1 mg/dl (8.6-10.4); GFR NON-AFRICAN AMERICAN > 60; LIPASE 141 U/L (23-300)
[2018-11-09] MEDS ORDERED: Sodium Chloride 0.9% 1,000 ML ONE (19:09)
[2018-11-09 20:05] VITALS: BP 139/90; PULSE 79; TEMP 98.2
== END 2018-11-09 21:08 | disposition home or self-care (01) ==
LOC: C.ER 16:19
DX: R56.9 Unspecified convulsions (principal); F10.20 Alcohol dependence, uncomplicated; E11.9 Type 2 diabetes mellitus without complications; I10 Essential (primary) hypertension; Z72.0 Tobacco use
CPT/HCPCS: 80053; 82550; 82948; 83690; 85025; 96361; 96374; 99285; J7030

== ENCOUNTER 2018-12-12 23:12 | Emergency (ER) | payer MEDICAID ==
[2018-12-12 23:12] VITALS: BMI 21.4
--- NOTE | 2018-12-13 00:36 | C.PDOC ---
History Of Present Illness 38 year old male is brought to the ED by EMS for evaluation of acute public alcohol intoxication. Patient admits to drinking today and is requesting a place to sleep for the night. He denies suicidal/homicidal ideation. Chief Complaint (Nursing): Substance Abuse History Per: Patient, Family History/Exam Limitations: intoxication Onset/Duration Of Symptoms: Hrs Current Symptoms Are (Timing): Still Present Suicide/Self Injury Attempted (Context): None Modifying Factor(s): Alcohol Associated Symptoms: denies: Suicidal Thoughts, Suicidal Plan Involuntary Hold By: None Recent travel outside of the [place]: No Additional History Per: Patient, EMS Past Medical History Reviewed: Historical Data, Nursing Documentation, Vital Signs Vital Signs: Last Vital Signs Temp 97.8 F 12/12/18 23:24 Pulse 98 H 12/12/18 23:24 Resp 18 12/12/18 23:24 BP 130/92 H 12/12/18 23:24 Pulse Ox 99 12/12/18 23:24 - Medical History PMH: Asthma, Depression, Diabetes, Gastritis, HTN, Pancreatitis, Seizures Denies: Chronic Kidney Disease Surgical History: No Surg Hx - [facility] Procedures ALCOHOL DETOXIFICATION (05/29/14) INJECT/INFUSE NEC (01/29/15) OTHER GROUP THERAPY (08/12/13) TETANUS TOXOID ADMINIST (07/05/14) Family History: States: Unknown Family Hx - Social History Hx Tobacco Use: Yes Hx Alcohol Use: Yes Hx Substance Use: No - Immunization History Hx Tetanus Toxoid Vaccination: Yes (07/05/2014) Hx Influenza Vaccination: No Hx Pneumococcal Vaccination: No Review Of Systems Psych: Positive for: Other (EtOH intoxication ) Physical Exam - Physical Exam Appears: Non-toxic, No Acute Distress, Other (visibly intoxicated ) Skin: Normal Color, Warm, Dry Head: Atraumatic, Normacephalic Eye(s): bilateral: Normal Inspection Oral Mucosa: Moist, Other (alcohol on breath ) Neck: Supple Chest: Symmetrical, No Deformity Respiratory: No Accessory Muscle Use Extremity: Normal ROM Neurological/Psych: Other (arousable to touch and verbal stimuli ) ED Course And Treatment O2 Sat by Pulse Oximetry: 99 (on RA) Pulse Ox Interpretation: Normal Disposition Counseled Patient/Family Regarding: Diagnosis - Disposition Referrals: Non [facility] Provider, [Primary Care Provider] - [facility] [Outside] Disposition: HOME/ ROUTINE Disposition Time: 06:00 Condition: STABLE Instructions: Alcohol Abuse and Alcoholism (DC) Forms: [facility] (Turkish) - POA Present On Arrival: None - Clinical Impression Clinical Impression: Alcohol abuse - Scribe Statement The provider has reviewed the documentation as recorded by the Scribe (Rina Soler) Provider Attestation: All medical record entries made by the Scribe were at my direction and personally dictated by me. I have reviewed the chart and agree that the record accurately reflects my personal performance of the history, physical exam, medical decision making, and the department course for this patient. I have also personally directed, reviewed, and agree with the discharge instructions and disposition.
[2018-12-13 03:32] VITALS: RESP 20; TEMP 98
[2018-12-13 05:46] VITALS: BP 138/66; PULSE 89; O2SAT 98
== END 2018-12-13 05:45 | disposition home or self-care (01) ==
LOC: C.ER 23:12 → SUPCPDRO 23:12 → C.ER 12-13 05:45
DX: F10.129 Alcohol abuse with intoxication, unspecified (principal); E11.9 Type 2 diabetes mellitus without complications; I10 Essential (primary) hypertension; Z72.0 Tobacco use

== ENCOUNTER 2018-12-30 19:03 | Emergency (ER) | payer MEDICAID ==
[2018-12-30 19:03] VITALS: BMI 21.4
--- NOTE | 2018-12-30 19:50 | C.PDOC ---
History Of Present Illness The patient presents to the ED for evaluation of acute alcohol intoxication. Patient admits to drinking earlier today. He does not offer any physical complaints at this time. Time Seen by Provider: 12/30/18 19:49 Chief Complaint (Nursing): Substance Abuse History Per: Patient History/Exam Limitations: intoxication Onset/Duration Of Symptoms: Hrs Current Symptoms Are (Timing): Still Present Suicide/Self Injury Attempted (Context): None Modifying Factor(s): Alcohol Severity: None Pain Scale Rating Of: 0 Associated Symptoms: denies: Suicidal Thoughts, Suicidal Plan Involuntary Hold By: None Recent travel outside of the [place]: No Additional History Per: Patient Past Medical History Reviewed: Historical Data, Nursing Documentation, Vital Signs Vital Signs: Last Vital Signs Temp 97.7 F 12/30/18 19:21 Pulse 74 12/30/18 19:21 Resp 20 12/30/18 19:21 BP 138/98 H 12/30/18 19:21 Pulse Ox 98 12/30/18 19:21 - Medical History PMH: Asthma, Depression, Diabetes, Gastritis, HTN, Pancreatitis, Seizures Denies: Chronic Kidney Disease Surgical History: No Surg Hx - [facility] Procedures ALCOHOL DETOXIFICATION (05/29/14) INJECT/INFUSE NEC (01/29/15) OTHER GROUP THERAPY (08/12/13) TETANUS TOXOID ADMINIST (07/05/14) Family History: States: Unknown Family Hx - Social History Hx Tobacco Use: Yes Hx Alcohol Use: Yes Hx Substance Use: No - Immunization History Hx Tetanus Toxoid Vaccination: Yes (07/05/2014) Hx Influenza Vaccination: No Hx Pneumococcal Vaccination: No Review Of Systems Constitutional: Negative for: Fever, Chills Cardiovascular: Negative for: Chest Pain, Palpitations Respiratory: Negative for: Cough, Shortness of Breath Gastrointestinal: Negative for: Nausea, Vomiting Skin: Negative for: Rash, Lesions, Jaundice, Bruising Neurological: Negative for: Weakness, Numbness Psych: Positive for: Other (alcohol intoxication ) Physical Exam - Physical Exam Appears: Non-toxic, No Acute Distress, Other (visibly intoxicated ) Skin: Warm, Dry Head: Normacephalic Oral Mucosa: Moist, Other (alcohol on breath ) Neck: Supple Chest: Symmetrical, No Deformity Respiratory: No Accessory Muscle Use Extremity: Normal ROM Neurological/Psych: Other (arousable to touch and verbal stimuli ) ED Course And Treatment O2 Sat by Pulse Oximetry: 98 (on RA) Pulse Ox Interpretation: Normal Reevaluation Time: 05:35 Reassessment Condition: Improved Disposition Counseled Patient/Family Regarding: Studies Performed, Diagnosis, Need For Followup - Disposition Referrals: [facility] [Outside] Disposition: HOME/ ROUTINE Disposition Time: 19:49 Condition: FAIR Instructions: Alcohol Abuse and Alcoholism (DC) Forms: [employer] (Guamanian) - Clinical Impression Clinical Impression: Alcohol abuse, Alcohol intoxication - Scribe Statement The provider has reviewed the documentation as recorded by the Scribe (Rina Soler) Provider Attestation: All medical record entries made by the Scribe were at my direction and personally dictated by me. I have reviewed the chart and agree that the record accurately reflects my personal performance of the history, physical exam, medical decision making, and the department course for this patient. I have also personally directed, reviewed, and agree with the discharge instructions and disposition.
[2018-12-31 04:40] VITALS: BP 130/72; PULSE 88; RESP 18; TEMP 98.6
[2018-12-31 05:35] VITALS: O2SAT 98
== END 2018-12-31 05:41 | disposition home or self-care (01) ==
LOC: C.ER 19:03
DX: F10.129 Alcohol abuse with intoxication, unspecified (principal); Y90.9 Presence of alcohol in blood, level not specified

== ENCOUNTER 2019-01-31 00:42 | Emergency (ER) | payer MEDICAID ==
[2019-01-31 00:43] VITALS: BMI 21.4
--- NOTE | 2019-01-31 02:06 | C.PDOC ---
History Of Present Illness 38 year old male is brought to the ED by EMS for public intoxication. Patient with multiple prior evaluations for same, last one on December 30. Patient denies SI/HI, hallucinations, injury, fall, trauma. Time Seen by Provider: 01/31/19 00:59 Chief Complaint (Nursing): Substance Abuse History Per: Patient, EMS History/Exam Limitations: intoxication Onset/Duration Of Symptoms: Hrs Current Symptoms Are (Timing): Still Present Suicide/Self Injury Attempted (Context): None Modifying Factor(s): Alcohol Associated Symptoms: denies: Depression, Suicidal Thoughts, Suicidal Plan Recent travel outside of the [place]: No Additional History Per: Patient, EMS Past Medical History Reviewed: Historical Data, Nursing Documentation, Vital Signs Vital Signs: Last Vital Signs Temp 97.4 F L 01/31/19 00:52 Pulse 79 01/31/19 00:52 Resp 22 01/31/19 00:52 BP 132/92 H 01/31/19 00:52 Pulse Ox 96 01/31/19 00:52 - Medical History PMH: Asthma, Depression, Diabetes, Gastritis, HTN, Pancreatitis, Seizures Denies: Chronic Kidney Disease Surgical History: No Surg Hx - [facility] Procedures ALCOHOL DETOXIFICATION (05/29/14) INJECT/INFUSE NEC (01/29/15) OTHER GROUP THERAPY (08/12/13) TETANUS TOXOID ADMINIST (07/05/14) Family History: States: Unknown Family Hx - Social History Hx Tobacco Use: Yes Hx Alcohol Use: Yes Hx Substance Use: No - Immunization History Hx Tetanus Toxoid Vaccination: Yes (07/05/2014) Hx Influenza Vaccination: No Hx Pneumococcal Vaccination: No Review Of Systems Constitutional: Negative for: Fever, Chills Cardiovascular: Negative for: Chest Pain Respiratory: Negative for: Shortness of Breath Gastrointestinal: Negative for: Nausea, Vomiting, Abdominal Pain Skin: Negative for: Rash Psych: Negative for: Depression, Suicidal ideation Physical Exam - Physical Exam Appears: Non-toxic, No Acute Distress, Other (AOB) Skin: Normal Color, Warm, Dry Head: Atraumatic, Normacephalic Eye(s): bilateral: Normal Inspection Neck: Normal ROM, Supple Chest: Symmetrical Cardiovascular: Rhythm Regular Respiratory: Normal Breath Sounds, No Rales, No Rhonchi, No Wheezing Gastrointestinal/Abdominal: Soft, No Tenderness, No Guarding, No Rebound Extremity: Normal ROM, No Tenderness, No Swelling Neurological/Psych: Oriented x3, Normal Speech Gait: Steady ED Course And Treatment O2 Sat by Pulse Oximetry: 96 (ON RA) Pulse Ox Interpretation: Normal Medical Decision Making Medical Decision Making: persistent alcohol abuse Disposition Doctor Will See Patient In The: Office Counseled Patient/Family Regarding: Studies Performed, Diagnosis - Disposition Disposition: HOME/ ROUTINE Disposition Time: 05:37 Condition: GOOD Forms: [facility] (Kittitian) - Clinical Impression Clinical Impression: Alcohol abuse - Scribe Statement The provider has reviewed the documentation as recorded by the Scribe Thompson Henderson All medical record entries made by the Scribe were at my direction and personally dictated by me. I have reviewed the chart and agree that the record accurately reflects my personal performance of the history, physical exam, medical decision making, and the department course for this patient. I have also personally directed, reviewed, and agree with the discharge instructions and disposition.
[2019-01-31 06:29] VITALS: TEMP 97.9
[2019-01-31 06:32] VITALS: BP 122/80; PULSE 88; RESP 20; O2SAT 97
== END 2019-01-31 06:00 | disposition home or self-care (01) ==
LOC: C.ER 00:42
DX: F10.10 Alcohol abuse, uncomplicated (principal); E11.9 Type 2 diabetes mellitus without complications; I10 Essential (primary) hypertension; Z72.0 Tobacco use

== ENCOUNTER 2019-02-04 00:29 | Emergency (ER) | payer MEDICAID ==
[2019-02-04 00:29] VITALS: BMI 21.4
[2019-02-04 00:41] VITALS: RESP 16
--- NOTE | 2019-02-04 04:05 | C.PDOC ---
History Of Present Illness 38 year old male presents with acute ETOH intoxication. No complaints at this time. Time Seen by Provider: 02/04/19 01:24 Chief Complaint (Nursing): Substance Abuse History Per: Patient History/Exam Limitations: intoxication Onset/Duration Of Symptoms: Hrs Current Symptoms Are (Timing): Still Present Modifying Factor(s): Alcohol Past Medical History Reviewed: Historical Data, Nursing Documentation, Vital Signs Vital Signs: Last Vital Signs Temp 98.9 F 02/04/19 03:02 Pulse 71 02/04/19 03:02 Resp 16 02/04/19 03:02 BP 134/85 02/04/19 03:02 Pulse Ox 94 L 02/04/19 03:02 - Medical History PMH: Asthma, Depression, Diabetes, Gastritis, HTN, Pancreatitis, Seizures Denies: Chronic Kidney Disease - [facility] Procedures ALCOHOL DETOXIFICATION (05/29/14) INJECT/INFUSE NEC (01/29/15) OTHER GROUP THERAPY (08/12/13) TETANUS TOXOID ADMINIST (07/05/14) Family History: States: Unknown Family Hx - Social History Hx Tobacco Use: Yes Hx Alcohol Use: Yes Hx Substance Use: No - Immunization History Hx Tetanus Toxoid Vaccination: Yes (07/05/2014) Hx Influenza Vaccination: No Hx Pneumococcal Vaccination: No Review Of Systems Review Of Systems: ROS cannot be obtained secondary to pt's inabilty to answer questions. Physical Exam - Physical Exam Appears: Other (No obvious signs of trauma) Head: Atraumatic Chest: Other (Atraumatic) Respiratory: Other (Normal inspiratory and expiratory flow) Gastrointestinal/Abdominal: Soft Extremity: Other (Full ROM throughout) Neurological/Psych: Other (Easily arousable, responds to voice and painful stimuli) ED Course And Treatment O2 Sat by Pulse Oximetry: 94 (Room air) Medical Decision Making Medical Decision Making: To be discharged when clinically sober. Disposition Counseled Patient/Family Regarding: Diagnosis, Need For Followup - Disposition Disposition: HOME/ ROUTINE Disposition Time: 05:21 Condition: IMPROVED Instructions: Alcohol Abuse and Alcoholism (DC) Forms: [facility] (Amharic), General Discharge Instructions - Clinical Impression Clinical Impression: Alcohol abuse with intoxication - PA / VARNISH MIXER / Resident Statement MD/DO has reviewed & agrees with the documentation as recorded. - Scribe Statement The provider has reviewed the documentation as recorded by the Scribe Farhan Modi All medical record entries made by the Scribe were at my direction and personally dictated by me. I have reviewed the chart and agree that the record accurately reflects my personal performance of the history, physical exam, medical decision making, and the department course for this patient. I have also personally directed, reviewed, and agree with the discharge instructions and disposition.
[2019-02-04 05:24] VITALS: BP 113/89; PULSE 89; TEMP 97.9; O2SAT 100
== END 2019-02-04 05:25 | disposition home or self-care (01) ==
LOC: C.ER 00:29
DX: F10.129 Alcohol abuse with intoxication, unspecified (principal); E11.9 Type 2 diabetes mellitus without complications

== ENCOUNTER 2019-02-13 00:23 | Emergency (ER) | payer MEDICAID ==
[2019-02-13 00:24] VITALS: BMI 21.4
[2019-02-13 00:34] VITALS: O2SAT 99
--- NOTE | 2019-02-13 00:56 | C.PDOC ---
History Of Present Illness 38-year-old male presents to the emergency department with reports and drinking alcohol today. Patient is under the influence and would like a place to stay for the night. He offers no complaints at this time. Time Seen by Provider: 02/13/19 00:41 Chief Complaint (Nursing): Substance Abuse History Per: Patient History/Exam Limitations: no limitations Onset/Duration Of Symptoms: Hrs Current Symptoms Are (Timing): Still Present Suicide/Self Injury Attempted (Context): None Modifying Factor(s): Alcohol Associated Symptoms: denies: Suicidal Thoughts, Suicidal Plan Past Medical History Reviewed: Historical Data, Nursing Documentation, Vital Signs Vital Signs: Last Vital Signs Temp 98.0 F 02/13/19 00:32 Pulse 83 02/13/19 00:32 Resp 16 02/13/19 00:32 BP 121/80 02/13/19 00:32 Pulse Ox 99 02/13/19 00:32 - Medical History PMH: Asthma, Depression, Diabetes, Gastritis, HTN, Pancreatitis, Seizures Denies: Chronic Kidney Disease Surgical History: No Surg Hx - [facility] Procedures ALCOHOL DETOXIFICATION (05/29/14) INJECT/INFUSE NEC (01/29/15) OTHER GROUP THERAPY (08/12/13) TETANUS TOXOID ADMINIST (07/05/14) Family History: States: No Known Family Hx - Social History Hx Tobacco Use: Yes Hx Alcohol Use: Yes Hx Substance Use: No - Immunization History Hx Tetanus Toxoid Vaccination: Yes (07/05/2014) Hx Influenza Vaccination: No Hx Pneumococcal Vaccination: No Review Of Systems Constitutional: Negative for: Fever, Chills Cardiovascular: Negative for: Chest Pain Respiratory: Negative for: Cough, Shortness of Breath Gastrointestinal: Negative for: Nausea, Vomiting, Abdominal Pain, Diarrhea Neurological: Negative for: Weakness, Numbness Physical Exam - Physical Exam Appears: Non-toxic, No Acute Distress Skin: Warm, Dry Head: Normacephalic Eye(s): bilateral: Normal Inspection, PERRL, EOMI Oral Mucosa: Other (alcohol on breath) Neck: Normal ROM, Supple Chest: Symmetrical, No Tenderness Cardiovascular: Rhythm Regular, No Murmur Respiratory: No Rales, No Rhonchi, No Wheezing Gastrointestinal/Abdominal: Soft, No Tenderness Neurological/Psych: Oriented x3 ED Course And Treatment O2 Sat by Pulse Oximetry: 99 (RA) Pulse Ox Interpretation: Normal Reevaluation Time: 05:10 Reassessment Condition: Improved Disposition Counseled Patient/Family Regarding: Studies Performed, Diagnosis, Need For Followup - Disposition Referrals: [facility] [Outside] Disposition: HOME/ ROUTINE Disposition Time: 05:12 Condition: FAIR Instructions: Alcohol Abuse and Alcoholism (DC) Forms: [facility] (Colombian) - Clinical Impression Clinical Impression: Alcohol intoxication - Scribe Statement The provider has reviewed the documentation as recorded by the Scribe (Edilberto Brennan) Provider Attestation: All medical record entries made by the Scribe were at my direction and personally dictated by me. I have reviewed the chart and agree that the record accurately reflects my personal performance of the history, physical exam, medical decision making, and the department course for this patient. I have also personally directed, reviewed, and agree with the discharge instructions and disposition.
[2019-02-13 05:19] VITALS: BP 108/76; PULSE 84; RESP 20; TEMP 98.1
== END 2019-02-13 05:18 | disposition home or self-care (01) ==
LOC: C.ER 00:23
DX: F10.129 Alcohol abuse with intoxication, unspecified (principal); Y90.9 Presence of alcohol in blood, level not specified

== ENCOUNTER 2019-02-15 02:20 | Emergency (ER) | payer MEDICAID ==
[2019-02-15 02:21] VITALS: BMI 21.4
[2019-02-15 02:34] VITALS: O2SAT 98
--- NOTE | 2019-02-15 03:05 | C.PDOC ---
History Of Present Illness 38 year old male chronic alcoholic with seizure disorder presents requesting refill of his medications. Patients admits to drinking today and reports some intermittent abdominal pain but no pain at this time. Denies nausea, vomiting, or diarrhea. Time Seen by Provider: 02/15/19 02:56 Chief Complaint (Nursing): Medical Clearance History Per: Patient History/Exam Limitations: no limitations Onset/Duration Of Symptoms: Hrs Recent travel outside of the [place]: No Past Medical History Reviewed: Historical Data, Nursing Documentation, Vital Signs Vital Signs: Last Vital Signs Temp 97.8 F 02/15/19 02:33 Pulse 89 02/15/19 02:33 Resp 20 02/15/19 02:33 BP 158/109 H 02/15/19 02:33 Pulse Ox 98 02/15/19 02:33 - Medical History PMH: Asthma, Depression, Diabetes, Gastritis, HTN, Pancreatitis, Seizures Denies: Chronic Kidney Disease - [facility] Procedures ALCOHOL DETOXIFICATION (05/29/14) INJECT/INFUSE NEC (01/29/15) OTHER GROUP THERAPY (08/12/13) TETANUS TOXOID ADMINIST (07/05/14) Family History: States: Unknown Family Hx - Social History Hx Tobacco Use: Yes Hx Alcohol Use: Yes Hx Substance Use: No - Immunization History Hx Tetanus Toxoid Vaccination: Yes (07/05/2014) Hx Influenza Vaccination: No Hx Pneumococcal Vaccination: No Review Of Systems Constitutional: Negative for: Fever, Chills Cardiovascular: Negative for: Chest Pain, Palpitations Respiratory: Negative for: Cough, Shortness of Breath Gastrointestinal: Negative for: Nausea, Vomiting, Abdominal Pain, Diarrhea Neurological: Negative for: Weakness, Numbness Physical Exam - Physical Exam Appears: Non-toxic, Other (Disheveled, AOB) Skin: Normal Color, Warm Head: Atraumatic, Normacephalic Eye(s): bilateral: Normal Inspection Oral Mucosa: Moist Chest: Symmetrical, No Tenderness Cardiovascular: Rhythm Regular Respiratory: Normal Breath Sounds, No Rales, No Rhonchi, No Wheezing Gastrointestinal/Abdominal: Soft, No Tenderness Neurological/Psych: Oriented x3, Normal Speech ED Course And Treatment O2 Sat by Pulse Oximetry: 98 (Room air) Pulse Ox Interpretation: Normal Progress Note: Patient is requesting to sleep for a while before being discharged, will allow patient to rest. On reevaluation, patient is resting comfortably in no acute distress, vitals are stable, will discharge home. 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 - Scribe Statement The provider has reviewed the documentation as recorded by the Scribchidi Modi All medical record entries made by the Ousmaneibchidi were at my direction and personally dictated by me. I have reviewed the chart and agree that the record accurately reflects my personal performance of the history, physical exam, medical decision making, and the department course for this patient. I have also personally directed, reviewed, and agree with the discharge instructions and disposition.
[2019-02-15 05:57] VITALS: BP 150/110; PULSE 86; RESP 18; TEMP 98.1
== END 2019-02-15 06:05 | disposition home or self-care (01) ==
LOC: C.ER 02:20
DX: F10.10 Alcohol abuse, uncomplicated (principal); Y90.9 Presence of alcohol in blood, level not specified

== ENCOUNTER 2019-03-05 22:07 | Emergency (ER) | payer MEDICAID, OTHER ==
[2019-03-05 22:08] VITALS: BMI 21.4
--- NOTE | 2019-03-05 22:45 | C.PDOC ---
History Of Present Illness 39-year-old male is brought to the ED by ambulance for evaluation of public alcohol intoxication. Patient is a homeless alcohol who is well-known to the ED. Patient does not offer any complaints at this time. No obvious signs of trauma. Time Seen by Provider: 03/05/19 22:41 Chief Complaint (Nursing): Substance Abuse History Per: Patient, EMS History/Exam Limitations: intoxication Onset/Duration Of Symptoms: Hrs Current Symptoms Are (Timing): Still Present Modifying Factor(s): Alcohol Additional History Per: Patient Past Medical History Reviewed: Historical Data, Nursing Documentation, Vital Signs Vital Signs: Last Vital Signs Temp 98.4 F 03/05/19 22:19 Pulse 89 03/05/19 22:19 Resp 18 03/05/19 22:19 BP 121/79 03/05/19 22:19 Pulse Ox 95 03/05/19 22:19 Primary Care Provider: FAMILY PROVIDER,NO - Medical History PMH: Asthma, Depression, Diabetes, Gastritis, HTN, Pancreatitis, Seizures Denies: Chronic Kidney Disease Surgical History: No Surg Hx - [facility] Procedures ALCOHOL DETOXIFICATION (05/29/14) INJECT/INFUSE NEC (01/29/15) OTHER GROUP THERAPY (08/12/13) TETANUS TOXOID ADMINIST (07/05/14) Family History: States: Unknown Family Hx - Social History Hx Tobacco Use: Yes Hx Alcohol Use: Yes Hx Substance Use: No - Immunization History Hx Tetanus Toxoid Vaccination: Yes (07/05/2014) Hx Influenza Vaccination: No Hx Pneumococcal Vaccination: No Review Of Systems Psych: Positive for: Other (EtOH intoxication ) Physical Exam - Physical Exam Appears: Non-toxic, No Acute Distress, Other (disheveled, foul-smelling ) Skin: Normal Color, Warm, Dry, Other (no acute injuries ) Head: Atraumatic, Normacephalic Oral Mucosa: Moist, Other (alcohol on breath ) Neck: Supple Chest: Symmetrical, No Deformity, No Tenderness Cardiovascular: Rhythm Regular Respiratory: No Accessory Muscle Use Gastrointestinal/Abdominal: Soft, No Tenderness Extremity: Normal ROM Neurological/Psych: Other (arousable to touch and verbal stimuli ) ED Course And Treatment O2 Sat by Pulse Oximetry: 95 (on RA) Pulse Ox Interpretation: Normal Medical Decision Making Medical Decision Making: alcohol abuse easily arousable no acute injuries ok for d/c to street Disposition Doctor Will See Patient In The: Office Counseled Patient/Family Regarding: Studies Performed, Diagnosis - Disposition Referrals: Alcoholics Anonymous [Outside] [facility] [Outside] [facility] [Outside] [facility] [Outside] [facility] [Outside] Disposition: HOME/ ROUTINE Disposition Time: 22:45 Condition: GOOD Additional Instructions: seek AA [facility] pre-screening Se[facility] Placement Instructions: Alcohol Use - When Is Drinking a Problem?, Alcohol Abuse and Alcoholism (DC) Forms: [facility] (Stateless) - Clinical Impression Clinical Impression: Alcohol abuse - Scribe Statement The provider has reviewed the documentation as recorded by the Scribe (Rina Soler) Provider Attestation: All medical record entries made by the Scribe were at my direction and personally dictated by me. I have reviewed the chart and agree that the record accurately reflects my personal performance of the history, physical exam, medical decision making, and the department course for this patient. I have also personally directed, reviewed, and agree with the discharge instructions and disposition.
[2019-03-05 23:18] VITALS: BP 123/74; PULSE 83; RESP 20
[2019-03-05 23:23] VITALS: TEMP 97.6
[2019-03-06 01:40] VITALS: O2SAT 95
== END 2019-03-06 00:11 | disposition home or self-care (01) ==
LOC: C.ER 22:07
DX: F10.129 Alcohol abuse with intoxication, unspecified (principal); Y90.9 Presence of alcohol in blood, level not specified; Z59.0 Homelessness

== ENCOUNTER 2019-03-08 02:14 | Emergency (ER) | payer MEDICAID ==
[2019-03-08 02:14] VITALS: BMI 21.4
--- NOTE | 2019-03-08 02:34 | C.PDOC ---
History Of Present Illness Patient presents to the ED requesting for a place to sleep. Patient admits to drinking alcohol today. Patient denies SI/HI, hallucinations, other medical complaints at this time. Time Seen by Provider: 03/08/19 02:32 Chief Complaint (Nursing): Substance Abuse History Per: Patient History/Exam Limitations: intoxication Onset/Duration Of Symptoms: Hrs Current Symptoms Are (Timing): Still Present Modifying Factor(s): Alcohol Associated Symptoms: denies: Depression, Suicidal Thoughts, Suicidal Plan Recent travel outside of the [place]: No Additional History Per: Patient Past Medical History Reviewed: Historical Data, Nursing Documentation, Vital Signs - Medical History PMH: Asthma, Depression, Diabetes, Gastritis, HTN, Pancreatitis, Seizures Denies: Chronic Kidney Disease Surgical History: No Surg Hx - [facility] Procedures ALCOHOL DETOXIFICATION (05/29/14) INJECT/INFUSE NEC (01/29/15) OTHER GROUP THERAPY (08/12/13) TETANUS TOXOID ADMINIST (07/05/14) Family History: States: Unknown Family Hx - Social History Hx Tobacco Use: Yes Hx Alcohol Use: Yes Hx Substance Use: No - Immunization History Hx Tetanus Toxoid Vaccination: Yes (07/05/2014) Hx Influenza Vaccination: No Hx Pneumococcal Vaccination: No Review Of Systems Constitutional: Negative for: Fever, Chills Cardiovascular: Negative for: Chest Pain Respiratory: Negative for: Shortness of Breath Gastrointestinal: Negative for: Nausea, Vomiting, Abdominal Pain Skin: Negative for: Rash Psych: Negative for: Depression, Suicidal ideation Physical Exam - Physical Exam Appears: Non-toxic, No Acute Distress Skin: Warm, Dry Head: Normacephalic Eye(s): bilateral: Normal Inspection Neck: Supple Chest: Symmetrical Cardiovascular: Rhythm Regular Respiratory: Normal Breath Sounds, No Rales, No Rhonchi, No Wheezing Gastrointestinal/Abdominal: Soft, No Distention Extremity: Bilateral: Atraumatic, Normal Color And Temperature, Normal ROM Neurological/Psych: Oriented x3, Normal Speech, Normal Cognition Gait: Steady ED Course And Treatment O2 Sat by Pulse Oximetry: 96 (ON RA) Pulse Ox Interpretation: Normal Reevaluation Time: 05:34 Reassessment Condition: Improved Disposition Counseled Patient/Family Regarding: Studies Performed, Diagnosis, Need For Followup - Disposition Referrals: [facility] [Outside] Disposition: HOME/ ROUTINE Disposition Time: 02:33 Condition: FAIR Instructions: Alcohol Abuse and Alcoholism (DC) Forms: [facility] (Tamazight) - Clinical Impression Clinical Impression: Alcohol abuse, Alcohol intoxication - Scribe Statement The provider has reviewed the documentation as recorded by the Scribe Thompson Henderson All medical record entries made by the Scribe were at my direction and personally dictated by me. I have reviewed the chart and agree that the record accurately reflects my personal performance of the history, physical exam, medical decision making, and the department course for this patient. I have also personally directed, reviewed, and agree with the discharge instructions and disposition.
[2019-03-08 05:51] VITALS: BP 148/83; PULSE 98; RESP 18; TEMP 98.1; O2SAT 99
== END 2019-03-08 05:52 | disposition home or self-care (01) ==
LOC: C.ER 02:14
DX: F10.129 Alcohol abuse with intoxication, unspecified (principal); Y90.9 Presence of alcohol in blood, level not specified

== ENCOUNTER 2019-03-14 22:09 | Emergency (ER) | payer MEDICAID ==
[2019-03-14 22:09] VITALS: BMI 21.4
--- NOTE | 2019-03-14 23:48 | C.PDOC ---
History Of Present Illness Patient presents to the ED requesting for a place to sleep. Patient admits to drinking alcohol today. Patient is well known to the ED with multiple prior visits for same. Patient denies SI/HI, hallucinations, other medical complaints. Time Seen by Provider: 03/14/19 23:47 Chief Complaint (Nursing): Substance Abuse History Per: Patient History/Exam Limitations: intoxication Onset/Duration Of Symptoms: Hrs Current Symptoms Are (Timing): Still Present Suicide/Self Injury Attempted (Context): None Modifying Factor(s): Alcohol Associated Symptoms: denies: Depression, Suicidal Thoughts, Suicidal Plan Recent travel outside of the [place]: No Additional History Per: Patient Past Medical History Reviewed: Historical Data, Nursing Documentation, Vital Signs Vital Signs: Last Vital Signs Temp 98.9 F 03/14/19 22:47 Pulse 90 03/14/19 22:47 Resp 16 03/14/19 22:47 BP 150/93 H 03/14/19 22:47 Pulse Ox 96 03/14/19 22:47 Primary Care Provider: FAMILY PROVIDER,NO - Medical History PMH: Asthma, Depression, Diabetes, Gastritis, HTN, Pancreatitis, Seizures Denies: Chronic Kidney Disease Surgical History: No Surg Hx - [facility] Procedures ALCOHOL DETOXIFICATION (05/29/14) INJECT/INFUSE NEC (01/29/15) OTHER GROUP THERAPY (08/12/13) TETANUS TOXOID ADMINIST (07/05/14) Family History: States: Unknown Family Hx - Social History Hx Tobacco Use: Yes Hx Alcohol Use: Yes Hx Substance Use: No - Immunization History Hx Tetanus Toxoid Vaccination: Yes (07/05/2014) Hx Influenza Vaccination: No Hx Pneumococcal Vaccination: No Review Of Systems Constitutional: Negative for: Fever, Chills Cardiovascular: Negative for: Chest Pain Respiratory: Negative for: Shortness of Breath Gastrointestinal: Negative for: Nausea, Vomiting, Abdominal Pain Skin: Negative for: Rash Psych: Negative for: Depression, Suicidal ideation Physical Exam - Physical Exam Appears: Non-toxic, No Acute Distress Skin: Warm, Dry Head: Normacephalic Eye(s): bilateral: Normal Inspection Neck: Supple Chest: Symmetrical Cardiovascular: Rhythm Regular Respiratory: No Rales, No Rhonchi, No Wheezing Extremity: Bilateral: Atraumatic, Normal Color And Temperature, Normal ROM Neurological/Psych: Oriented x3, Normal Speech, Normal Cognition Gait: Steady ED Course And Treatment O2 Sat by Pulse Oximetry: 96 (ON RA) Pulse Ox Interpretation: Normal Reevaluation Time: 05:16 Reassessment Condition: Improved Disposition Counseled Patient/Family Regarding: Studies Performed, Diagnosis, Need For Followup - Disposition Referrals: [facility] [Outside] Disposition: HOME/ ROUTINE Disposition Time: 23:47 Condition: FAIR Instructions: Alcohol Abuse and Alcoholism (DC) Forms: [employer] [facility] (Mexican) - Clinical Impression Clinical Impression: Alcohol abuse, Alcohol intoxication - Scribe Statement The provider has reviewed the documentation as recorded by the Scribe Thompson Henderson All medical record entries made by the Scribe were at my direction and perso guilherme dictated by me. I have reviewed the chart and agree that the record accurately reflects my personal performance of the history, physical exam, medical decision making, and the department course for this patient. I have also personally directed, reviewed, and agree with the discharge instructions and disposition.
[2019-03-15 05:49] VITALS: BP 122/74; PULSE 80; RESP 18; TEMP 98.1; O2SAT 98
== END 2019-03-15 05:49 | disposition home or self-care (01) ==
LOC: C.ER 22:09
DX: F10.129 Alcohol abuse with intoxication, unspecified (principal); I10 Essential (primary) hypertension; E11.9 Type 2 diabetes mellitus without complications; Z72.0 Tobacco use

== ENCOUNTER 2019-03-15 22:29 | Emergency (ER) | payer MEDICAID ==
[2019-03-15 22:30] VITALS: BMI 21.4
[2019-03-15 22:52] VITALS: BP 126/83; PULSE 89; RESP 16; TEMP 98.5; O2SAT 97
--- NOTE | 2019-03-15 23:17 | C.PDOC ---
History Of Present Illness 39 yo male, hx of etoh and homeless presents seeking jail. well known to er for etoh abuse. reported abd pain in traige but at bedside pt drinking soda in nad. numerous presentations for similar. <Harpal Joshi - Last Filed: 03/16/19 00:37> <Harpal Joshi - Last Filed: 03/16/19 00:37> <Chase Garner - Last Filed: 03/16/19 05:44> Time Seen by Provider: 03/15/19 23:12 Chief Complaint (Nursing): Abdominal Pain Past Medical History Reviewed: Historical Data, Nursing Documentation, Vital Signs Vital Signs: Last Vital Signs Temp 98.5 F 03/15/19 22:50 Pulse 89 03/15/19 22:50 Resp 16 03/15/19 22:50 BP 126/83 03/15/19 22:50 Pulse Ox 97 03/15/19 22:50 Primary Care Provider: FAMILY PROVIDER,NO - Medical History PMH: Asthma, Depression, Diabetes, Gastritis, HTN, Pancreatitis, Seizures Denies: Chronic Kidney Disease - [facility] Procedures ALCOHOL DETOXIFICATION (05/29/14) INJECT/INFUSE NEC (01/29/15) OTHER GROUP THERAPY (08/12/13) TETANUS TOXOID ADMINIST (07/05/14) Family History: States: Unknown Family Hx - Social History Hx Tobacco Use: Yes Hx Alcohol Use: Yes Hx Substance Use: No - Immunization History Hx Tetanus Toxoid Vaccination: Yes (07/05/2014) Hx Influenza Vaccination: No Hx Pneumococcal Vaccination: No <Harpal Joshi - Last Filed: 03/16/19 00:37> Vital Signs: Last Vital Signs Temp 98.5 F 03/15/19 22:50 Pulse 89 03/15/19 22:50 Resp 16 03/15/19 22:50 BP 126/83 03/15/19 22:50 Pulse Ox 97 03/16/19 00:38 - [facility] Procedures ALCOHOL DETOXIFICATION (05/29/14) INJECT/INFUSE NEC (01/29/15) OTHER GROUP THERAPY (08/12/13) TETANUS TOXOID ADMINIST (07/05/14) <Chase Garner - Last Filed: 03/16/19 05:44> Review Of Systems Gastrointestinal: Positive for: Abdominal Pain <Harpal Joshi - Last Filed: 03/16/19 00:37> Physical Exam - Physical Exam Appears: Well, Non-toxic, No Acute Distress, Unkempt Skin: Normal Color, Warm, Dry Eye(s): bilateral: Normal Inspection, PERRL, EOMI Nose: Normal Throat: Normal Neck: Normal Cardiovascular: Rhythm Regular Respiratory: Normal Breath Sounds Gastrointestinal/Abdominal: Normal Exam, Soft, No Tenderness, No Guarding, No Rebound Back: Normal Inspection Extremity: Normal ROM <Harpal Joshi - Last Filed: 03/16/19 00:37> ED Course And Treatment O2 Sat by Pulse Oximetry: 97 <Harpal Joshi - Last Filed: 03/16/19 00:37> Medical Decision Making Medical Decision Making: wel known to er. in er in nad. no abd ttp. tolering tpo. 100: pt sleeping in nad. endorsed to weight shifter pending reasesess. final dispo. <Harpal Joshi - Last Filed: 03/16/19 00:37> Disposition <Harpal Joshi - Last Filed: 03/16/19 00:37> Counseled Patient/Family Regarding: Diagnosis - Disposition Disposition Time: 05:43 - POA Present On Arrival: None <Chase Garner - Last Filed: 03/16/19 05:44> - Disposition Referrals: [facility] [Outside] Disposition: HOME/ ROUTINE Condition: STABLE Instructions: Alcohol Abuse and Alcoholism (DC) Forms: [employer] [employer] (Frisian) - Clinical Impression Clinical Impression: Alcohol abuse with intoxication
== END 2019-03-16 06:09 | disposition home or self-care (01) ==
LOC: C.ER 22:29
DX: F10.129 Alcohol abuse with intoxication, unspecified (principal); Y90.9 Presence of alcohol in blood, level not specified

== ENCOUNTER 2019-03-25 18:18 | Emergency (ER) | payer MEDICAID | END 2019-03-25 23:39 | disposition home or self-care (01) | LOC: C.ER 18:18 ==